=== PATIENT | male | born 1965 | race Caucasian/White ===

== ENCOUNTER 2017-12-12 16:05 | Observation (INO) | payer BC, SELFPAY ==
[2017-12-12] VITALS (10 sets, daily range): BP systolic 164–199; BP diastolic 12–129; PULSE 72–112; RESP 14–25; TEMP 36.1–37.3; O2SAT 95–99; BMI 28.7; BMI 27.3
--- NOTE | 2017-12-12 16:12 | RAD_ITS ---
STUDY: X-RAY CHEST REASON FOR EXAM: Male, 52 years old. Chest pain TECHNIQUE: Single frontal view of the chest. COMPARISON: None. FINDINGS: The lungs are clear and expanded. There is no demonstrated pleural abnormality. Normal size heart. Normal mediastinum and annita. Normal visualized pulmonary arteries. Normal visualized aortic arch and descending thoracic aorta. Normal visualized thoracic spine. Normal visualized ribs, clavicles, and shoulders. There is no demonstrated abnormality of the visualized soft tissue structures of the upper abdomen. RAD/Chest 1 View (Portable) IMPRESSION: Normal x-ray examination of the chest. Electronically Signed: Sean Howell MD at 16:26 EST , Service support ,
--- NOTE | 2017-12-12 16:12 | EKG12_ITS ---
Test Reason : CP Blood Pressure : / mmHG Vent. Rate : 114 BPM Atrial Rate : 114 BPM P-R Int : 178 ms QRS Dur : 092 ms QT Int : 330 ms P-R-T Axes : 026 -12 000 degrees QTc Int : 454 ms Sinus tachycardia Otherwise normal ECG Confirmed by MICKEY RASMUSSEN ([id number]), copy editor MEKA LUNDBERG ([id number] on 12/15/2017 11:42:39 AM Referred By: Confirmed By:MICKEY RASMUSSEN
[2017-12-12] MEDS: Aspirin 81 MG TAB.CHEW 324 MG PO (16:17)
--- NOTE | 2017-12-12 16:17 | ED.VISSUMM ---
- ER Visit Summary Date of Service: 12/12/17 Chief Complaint: Chest pain History of Present Illness: The patient is a 52 M with a 2 and half day history of chest pain. He points to left upper and lower chest. He describes it as an aching sensation. Pain has been waxing and waning but never resolved. He does not have significant shortness of breath, nausea, or vomiting. Patient was seen at urgent care 3 days ago and diagnosed with strep throat. He is currently on antibiotics. He was told at that time his blood pressure was through the roof. Patient does have a family history of cardiac disease but himself has never had a stress test or a heart cath. He denies any DVT or PE risk factors. Physical Examination: Blood pressure is 199/129, temperature 99.1, heart rate 112, respiratory rate 24, pulse ox 97% on room air. Patient sitting upright in bed no acute distress. Head and neck examination is normal. Heart is slightly tachycardic and regular. Lung sounds are clear with good air movement. Chest wall is nontender palpation. Abdomen is soft nontender. Lower external examination was no calf tenderness or edema. Strong distal pulses are noted. Test Results: EKG is sinus tach at [address] change. Portable chest x-ray is unremarkable. CBC and chemistry studies are unremarkable. Troponin is less than 0.02. D-dimer 0.86. Repeat EKG is sinus [address] change. 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 There is mild aneurysmal ascending aorta dilatation of 4.1 x 3.7 cm. There is no evidence of leak. There is no evidence of PE. Emergency Department Course and Treatment: Patient was given aspirin, morphine, and Zofran. On repeat evaluation heart rate is improved into the 80s but blood pressure remains elevated at 180/107. Patient be given a dose of IV hydralazine. I recommended hospitalization for treatment of his blood pressure and chest pain. Treatment Plan: [] Disposition: Admit Impression: 1. Chest pain 2. Hypertensive emergency This note was generated with [employer] dictation software. It may contain incorrect words, spelling, and punctuation that were not noted in review of the chart prior to signing ED Disposition - Plan for ED Patient: Chief Complaint: Chest Pain Referrals: [facility] [address] Doctor,Out of [NON-STAFF] -
[2017-12-12] MEDS: 0.9% Normal Saline 1,000 ML 150 ML IV (16:18)
[2017-12-12] MEDS: Ondansetron 4 MG/2 ML Vial IV (16:22)
[2017-12-12 16:39] LABS: Absolute Lymphocyte Count 2.99 X10^3/ul (0.83-4.51); Absolute Neutrophil Count 6.2 X10^3/uL (2.0-7.7); Basophil# 0.02 X10^3/uL; Basophil% 0.2 % (0-1); Eosinophil# 0.21 X10^3/uL; Hematocrit 43.6 % (40-54); Hemoglobin 14.9 g/dl (13.0-16.5); Lymphocyte # 2.99 X10^3/ul (4.0); Lymphocyte % 28.6 % (19-41); Mean Corp Hgb Conc 34.2 g/gl (32-36); Mean Corpuscular Hgb 28.7 pg (27.0-32.0); Mean Corpuscular Volume 83.8 fL (80-94); Monocyte# 0.96 X10^3/uL; Monocyte% 9.2 % (0-10); Neutrophil # 6.23 X10^3/uL (2.7-7.7); Neutrophil % 59.7 % (47-70); Platelet Count 353 K/mm3 (150-450); RBC Distribution Width SD 39.4 fl (35.1-43.9); White Blood Count 10.4 K/mm3 (4.4-11.0)
--- NOTE | 2017-12-12 16:43 | EKG12_ITS ---
Test Reason : CP Blood Pressure : / mmHG Vent. Rate : 088 BPM Atrial Rate : 088 BPM P-R Int : 162 ms QRS Dur : 092 ms QT Int : 362 ms P-R-T Axes : 017 -13 001 degrees QTc Int : 438 ms Normal sinus rhythm Normal ECG Confirmed by MICKEY RASMUSSEN ([id number]), medical editor MEKA LUNDBERG ([id number]) on 12/15/2017 11:42:55 AM Referred By: NAKIA Confirmed By:MICKEY RASMUSSEN
[2017-12-12 16:51] LABS: POSITIVE COUNT NO; POSITIVE DIFFERENTIAL NO; POSITIVE MORPHOLOGY NO
[2017-12-12 17:01] LABS: Anion Gap 9 (5-15); BUN 20 mg/dL (7-18); BUN/Creat Ratio 16.9 RATIO (10-20); Calcium,Total 8.5 mg/dL (8.5-10.1); Chloride 106 mmol/L (98-107); Creatinine, Serum 1.18 mg/dL (0.70-1.30); EST Glomerular Filtration Rate 69 mL/min (>60); Est Glom Filt Rate - Afr Amer 84 mL/min (>60); Estimated Creatinine Clearance 77.33 ml/min; Glucose 82 mg/dL (70-110); Potassium 3.6 mmol/L (3.5-5.1); Sodium Level 141 mmol/L (136-145)
[2017-12-12 17:19] LABS: D-Dimer Quantitative (DVT/PE) 0.86 FEU/ug/m (0.27-0.49)
--- NOTE | 2017-12-12 17:30 | CT_ITS ---
STUDY: CTA CHEST REASON FOR EXAM: Male, 52 years old. Chest pain for 3 days RADIATION DOSAGE (If Supplied By Facility): CTDIvol = ( 13.96 ) mGy, DLP = ( 570.06 ) mGycm TECHNIQUE: The examination was performed with the intravenous administration of 100mL ml of Isovue 370 contrast material. Post-processing of the angiographic images was performed, with multiplanar reformation and 3D reconstruction. Individualized dose optimization techniques were used for this CT. COMPARISON: None. FINDINGS: Normal enhancement of the main pulmonary artery and right and left pulmonary arteries. Normal enhancement of the bilateral peripheral pulmonary arteries. There is no demonstrated pulmonary embolism. The aorta is tortuous and there is mild aneurysmal dilatation of the ascending aorta measuring approximately 4.1 x 3.7 cm.. There is no demonstrated aortic dissection. Heart size is normal. There is mild coronary artery calcification Normal mediastinum. Normal hilar regions. Normal visualized trachea and bronchi. The lungs are well expanded. There is mild generalized interstitial thickening with groundglass opacity consistent with nonspecific alveolitis. Normal pleura. Normal chest wall structures. Normal osseous structures. Normal visualized upper abdomen. CT/CTA Chest W/WO Contrast IMPRESSION: Mild nonspecific interstitial thickening and groundglass opacity consistent with alveolitis.. No evidence for pulmonary embolus Incidental findings include mild aneurysmal dilatation of the proximal ascending aorta without evidence for periaortic leak or dissection. There is also calcification of the coronary arteries Electronically Signed: Enrico Harris MD at 18:20 EST , Service support ,
--- NOTE | 2017-12-12 17:46 | ED.RN ---
0.86 ddimer called from the lab. dr jose borges
--- NOTE | 2017-12-12 19:23 | PCM.HP.STD ---
Problem List (1) Chest pain Status: Acute (2) Hypertension Status: Chronic Qualifiers: Hypertension type: essential hypertension Qualified Code(s): I10 - Essential (primary) hypertension (3) Thoracic aortic aneurysm Status: Chronic Qualifiers: Presence of rupture: without rupture Qualified Code(s): I71.2 - Thoracic aortic aneurysm, without rupture History of Present Illness Date of Admission: 12/12/17 Chief Complaint: Chest pain The patient is a 52 year old M with known history of hypertension presents with 2-3 day history of chest pain. Chest pain began is sporadic and occurs while he can be at rest. Not aggravated by exertion. It is midsternal mostly to the left but occasional up his jaw and patient having some unusual sensations that is not numbness on the back of his left arm. Was concerned and came to the emergency room. In the emergency room, patient was very hypertensive, with a blood pressure of 189/129. Patient had a d-dimer that was elevated and did undergo a CT injury of the chest. CT angiogram of the chest did not show any pulmonary embolism but did show some groundglass opacities but also did show a thoracic aortic aneurysm of 4.1 cm. In the emergency room, patient received 10 mg of IV hydralazine, 324 mg of aspirin and morphine. Patient is chest pain-free at this time. He has never had chest pain like this before. [] Past Medical History Past Medical History (Chronic Problems): Chronic Problems Hypertension (Chronic) Thoracic aortic aneurysm (Chronic) Allergies No Known Allergies Allergy (Verified 12/12/17 16:11) Home Medications: Ambulatory Orders Medication Instructions Recorded Amoxicillin [Amoxil] 500 mg PO Q8H 12/12/17 Surgical History: - - History of back surgery for some bulging disks Psychiatric History: No pertinent psych hx Smoking Status: Former smoker Tobacco Use: Non-smoker Alcohol: Occasional Drugs: None - *Family History Paternal History Items: Heart Disease Sibling History Items: Heart Disease Review of Systems Constitutional: Denies: Chills, Fever, Weight Change Eyes: Denies: Blurred vision, Double vision HEENT: Denies: Head Aches, Sinus Congestion, Sinus Drainage Cardiovascular: Reports: Chest Pain, Palpitations. Denies: Edema Respiratory: Denies: Cough, Shortness of breath at rest, Sputum production Gastrointestinal: Denies: Abdominal Pain, Nausea, Vomiting Genitourinary: Denies: Dysuria Musculoskeletal: Denies: Joint Pain, Joint Tenderness Skin: Denies: Rash, Wounds Neurological: Denies: Numbness, Tingling, Focal weakness Psychiatric: Denies: Anxiety, Depression, Homicidal Ideations, Suicidal Ideations Hematologic/ Lymphatic: Denies: Easy Bruising, Easy Bleeding, Hx of blood clot VTE Information - Inpt Only VTE Present on Admission: No VTE Pharm Prophylaxis ordered?: Yes Patient Problems: Active and Suspected Problems Chest pain (Acute) - Physical Exam General: Alert, Cooperative, No apparent distress, Well developed, Well nourished HEENT: Atraumatic, Normocephalic Neck: No Nodes, Thyroid Normal Size and Texture Lungs: Clear to auscultation, Normal air movement, No rhonchi, No wheeze Cardiovascular: Regular rate, Regular Rhythm, Normal S1, Normal S2, No murmurs Abdomen: Bowel Sounds Present, Soft, Non Tender, Non-Distended, No Hepato-splenomegaly Extremities: No clubbing, No cyanosis, No edema, No Calf Tenderness Skin: No rashes, No breakdown Musculoskeletal: No Tenderness to Palpation of Joints or Extremities, No Muscle Wasting Neurological: Neuro grossly intact, Sensory exam intact to light touch and pain Psych/Mental Status: Normal Affect, Appropriate Vital Signs Temp Pulse Resp BP Pulse Ox 37.3 C 90 25 H 189/127 H 99 12/12/17 16:06 12/12/17 19:01 12/12/17 19:01 12/12/17 19:01 12/12/17 19:01 Oxygen Delivery Method Room Air Weight: 90.7 kg Body Mass Index (BMI) 28.7 Laboratory Tests Past 24 Hrs 12/12/17 12/12/17 12/12/17 16:25 16:25 16:25 WBC 10.4 RBC 5.20 Hgb 14.9 Hct 43.6 MCV 83.8 MCH 28.7 MCHC 34.2 RDW 13.0 RDW Differential 39.4 Plt Count 353 MPV 10.0 Immature Gran % (Auto) 0.300 Neut % (Auto) 59.7 Lymph % (Auto) 28.6 Ocean % (Auto) 9.2 Eos % (Auto) 2.0 Baso % (Auto) 0.2 Absolute Neuts (auto) 6.2 Absolute Lymphs (auto) 2.99 Total Counted Not Reportable D-Dimer Quant (PE/DVT) 0.86 H* Sodium 141 Potassium 3.6 Chloride 106 Carbon Dioxide 26.0 Anion Gap 9 BUN 20 H Creatinine 1.18 Estim Creat Clear Calc 77.33 Est GFR (MDRD) Af Amer 84 Est GFR (MDRD) Non-Af 69 BUN/Creatinine Ratio 16.9 Glucose 82 Calcium 8.5 Troponin I < 0.02 Clinical Impression(s) from Imaging Studies Chest X-Ray 12/12/17 16:12 IMPRESSION: Normal x-ray examination of the chest. Electronically Signed: Sean Howell MD at 16:26 EST , Service support , Chest CTA 12/12/17 17:30 IMPRESSION: Mild nonspecific interstitial thickening and groundglass opacity consistent with alveolitis.. No evidence for pulmonary embolus Incidental findings include mild aneurysmal dilatation of the proximal ascending aorta without evidence for periaortic leak or dissection. There is also calcification of the coronary arteries Electronically Signed: Enrico Harris MD at 18:20 EST , Service support , EKG personally reviewed and showed normal sinus rhythm without any acute changes. Assessment/Plan Active and Suspected Problems Chest pain (Acute) 1. Chest pain Atypical. Patient has risk factors given hypertension as well as family history. Patient will be continued on aspirin, will check a fasting lipid panel in the morning, check a treadmill stress echocardiogram on the morning. Based on the results, patient to be discharged home or cardiology be consulted. 2. Hypertension Patient states that he is treating it with garlic tabs at home. Patient said his blood pressure is around 150s. Patient has no known drug allergies so patient was started on 10 mg of lisinopril. Patient will have as needed hydralazine for systolic blood pressure greater than 180 while he was here. 3. Thoracic aortic aneurysm, ascending Incidental finding on the CT angiogram of the chest. 4.1 cm. No surgical intervention necessary at this time. This however will still need to be monitored. Patient need to have a repeat CT of his chest in 6 months. 4. DVT prophylaxis with low molecular weight heparin. Patient instructed that he will need follow-up with primary care doctor after discharge. This note was generated with [employer] dictation software. It may contain incorrect words, spelling, and punctuation that were not noted in checking the note before signing. Code Visit OBSV E&M: 79700 Initial observation care L3
--- NOTE | 2017-12-12 19:31 | HP.PCM_ITS ---
Problem List (1) Chest pain Status: Acute (2) Hypertension Status: Chronic Qualifiers: Hypertension type: essential hypertension Qualified Code(s): I10 - Essential (primary) hypertension (3) Thoracic aortic aneurysm Status: Chronic Qualifiers: Presence of rupture: without rupture Qualified Code(s): I71.2 - Thoracic aortic aneurysm, without rupture History of Present Illness Date of Admission: 12/12/17 Chief Complaint: Chest pain The patient is a 52 year old M with known history of hypertension presents with 2-3 day history of chest pain. Chest pain began is sporadic and occurs while he can be at rest. Not aggravated by exertion. It is midsternal mostly to the left but occasional up his jaw and patient having some unusual sensations that is not numbness on the back of his left arm. Was concerned and came to the emergency room. In the emergency room, patient was very hypertensive, with a blood pressure of 189/129. Patient had a d-dimer that was elevated and did undergo a CT injury of the chest. CT angiogram of the chest did not show any pulmonary embolism but did show some groundglass opacities but also did show a thoracic aortic aneurysm of 4.1 cm. In the emergency room, patient received 10 mg of IV hydralazine, 324 mg of aspirin and morphine. Patient is chest pain- free at this time. He has never had chest pain like this before. [] Past Medical History Past Medical History (Chronic Problems): Chronic Problems Hypertension (Chronic) Thoracic aortic aneurysm (Chronic) Allergies No Known Allergies Allergy (Verified 12/12/17 16:11) Home Medications: Ambulatory Orders Medication Instructions Recorded Amoxicillin [Amoxil] 500 mg PO Q8H 12/12/17 Surgical History: - - History of back surgery for some bulging disks Psychiatric History: No pertinent psych hx Smoking Status: Former smoker Tobacco Use: Non-smoker Alcohol: Occasional Drugs: None - *Family History Paternal History Items: Heart Disease Sibling History Items: Heart Disease Review of Systems Constitutional: Denies: Chills, Fever, Weight Change Eyes: Denies: Blurred vision, Double vision HEENT: Denies: Head Aches, Sinus Congestion, Sinus Drainage Cardiovascular: Reports: Chest Pain, Palpitations. Denies: Edema Respiratory: Denies: Cough, Shortness of breath at rest, Sputum production Gastrointestinal: Denies: Abdominal Pain, Nausea, Vomiting Genitourinary: Denies: Dysuria Musculoskeletal: Denies: Joint Pain, Joint Tenderness Skin: Denies: Rash, Wounds Neurological: Denies: Numbness, Tingling, Focal weakness Psychiatric: Denies: Anxiety, Depression, Homicidal Ideations, Suicidal Ideations Hematologic/ Lymphatic: Denies: Easy Bruising, Easy Bleeding, Hx of blood clot VTE Information - Inpt Only VTE Present on Admission: No VTE Pharm Prophylaxis ordered?: Yes Patient Problems: Active and Suspected Problems Chest pain (Acute) - Physical Exam General: Alert, Cooperative, No apparent distress, Well developed, Well nourished HEENT: Atraumatic, Normocephalic Neck: No Nodes, Thyroid Normal Size and Texture Lungs: Clear to auscultation, Normal air movement, No rhonchi, No wheeze Cardiovascular: Regular rate, Regular Rhythm, Normal S1, Normal S2, No murmurs Abdomen: Bowel Sounds Present, Soft, Non Tender, Non-Distended, No Hepato- splenomegaly Extremities: No clubbing, No cyanosis, No edema, No Calf Tenderness Skin: No rashes, No breakdown Musculoskeletal: No Tenderness to Palpation of Joints or Extremities, No Muscle Wasting Neurological: Neuro grossly intact, Sensory exam intact to light touch and pain Psych/Mental Status: Normal Affect, Appropriate Vital Signs Temp Pulse Resp BP Pulse Ox 37.3 C 90 25 H 189/127 H 99 12/12/17 16:06 12/12/17 19:01 12/12/17 19:01 12/12/17 19:01 12/12/17 19:01 Oxygen Delivery Method Room Air Weight: 90.7 kg Body Mass Index (BMI) 28.7 Laboratory Tests Past 24 Hrs 12/12/17 12/12/17 12/12/17 16:25 16:25 16:25 WBC 10.4 RBC 5.20 Hgb 14.9 Hct 43.6 MCV 83.8 MCH 28.7 MCHC 34.2 RDW 13.0 RDW Differential 39.4 Plt Count 353 MPV 10.0 Immature Gran % (Auto) 0.300 Neut % (Auto) 59.7 Lymph % (Auto) 28.6 [place]linger % (Auto) 9.2 Eos % (Auto) 2.0 Baso % (Auto) 0.2 Absolute Neuts (auto) 6.2 Absolute Lymphs (auto) 2.99 Total Counted Not Reportable D-Dimer Quant (PE/DVT) 0.86 H* Sodium 141 Potassium 3.6 Chloride 106 Carbon Dioxide 26.0 Anion Gap 9 BUN 20 H Creatinine 1.18 Estim Creat Clear Calc 77.33 Est GFR (MDRD) Af Amer 84 Est GFR (MDRD) Non-Af 69 BUN/Creatinine Ratio 16.9 Glucose 82 Calcium 8.5 Troponin I < 0.02 Clinical Impression(s) from Imaging Studies Chest X-Ray 12/12/17 16:12 IMPRESSION: Normal x-ray examination of the chest. Electronically Signed: Sean Howell MD at 16:26 EST , Service support , Chest CTA 12/12/17 17:30 IMPRESSION: Mild nonspecific interstitial thickening and groundglass opacity consistent with alveolitis.. No evidence for pulmonary embolus Incidental findings include mild aneurysmal dilatation of the proximal ascending aorta without evidence for periaortic leak or dissection. There is also calcification of the coronary arteries Electronically Signed: Enrico Harris MD at 18:20 EST , Service support , EKG personally reviewed and showed normal sinus rhythm without any acute changes. Assessment/Plan Active and Suspected Problems Chest pain (Acute) 1. Chest pain Atypical. Patient has risk factors given hypertension as well as family history. Patient will be continued on aspirin, will check a fasting lipid panel in the morning, check a treadmill stress echocardiogram on the morning. Based on the results, patient to be discharged home or cardiology be consulted. 2. Hypertension Patient states that he is treating it with garlic tabs at home. Patient said his blood pressure is around 150s. Patient has no known drug allergies so patient was started on 10 mg of lisinopril. Patient will have as needed hydralazine for systolic blood pressure greater than 180 while he was here. 3. Thoracic aortic aneurysm, ascending Incidental finding on the CT angiogram of the chest. 4.1 cm. No surgical intervention necessary at this time. This however will still need to be monitored. Patient need to have a repeat CT of his chest in 6 months. 4. DVT prophylaxis with low molecular weight heparin. Patient instructed that he will need follow-up with primary care doctor after discharge. This note was generated with [employer] dictation software. It may contain incorrect words, spelling, and punctuation that were not noted in checking the note before signing. Code Visit OBSV E&M: 28720 Initial observation care L3
[2017-12-12] MEDS: AMOXICILLIN 500 MG CAPSULE PO (21:00)
[2017-12-12] MEDS: Lisinopril 10 MG Tablet PO (21:00)
[2017-12-13 00:14] VITALS: BP 156/94; PULSE 85; RESP 18; TEMP 36.6; O2SAT 95
[2017-12-13] MEDS: oxyCODONE 5 MG Tablet PO (00:20)
[2017-12-13 02:27] LABS: Absolute Lymphocyte Count 2.45 X10^3/ul (0.83-4.51); Absolute Neutrophil Count 5.4 X10^3/uL (2.0-7.7); Basophil# 0.03 X10^3/uL; Basophil% 0.3 % (0-1); Eosinophil# 0.21 X10^3/uL; Eosinophils% 2.3 % (0-5); Hematocrit 42.4 % (40-54); Hemoglobin 14.5 g/dl (13.0-16.5); Lymphocyte # 2.45 X10^3/ul (4.0); Lymphocyte % 26.3 % (19-41); Mean Corp Hgb Conc 34.2 g/gl (32-36); Mean Corpuscular Hgb 28.9 pg (27.0-32.0); Mean Corpuscular Volume 84.6 fL (80-94); Mean Platelet Vol. 9.7 fl (6.2-12.0); Monocyte# 1.23 X10^3/uL; Monocyte% 13.2 % (0-10); Neutrophil # 5.37 X10^3/uL (2.7-7.7); Neutrophil % 57.8 % (47-70); POSITIVE COUNT NO; POSITIVE DIFFERENTIAL NO; POSITIVE MORPHOLOGY NO; Platelet Count 333 K/mm3 (150-450); RBC Distribution Width CV 13.4 % (11.6-14.6); RBC Distribution Width SD 40.7 fl (35.1-43.9); Red Blood Count 5.01 M/mm3 (4.6-6.2); White Blood Count 9.3 K/mm3 (4.4-11.0)
[2017-12-13 02:34] LABS: Prothrombin Time (Protime)PT. 12.8 SECONDS (11.7-14.9)
[2017-12-13 02:35] LABS: Partial Thromboplast Time 28.6 Seconds (24.1-36.2)
[2017-12-13 03:00] VITALS: PULSE 62
[2017-12-13 03:10] LABS: Anion Gap 9 (5-15); BUN 18 mg/dL (7-18); BUN/Creat Ratio 16.4 RATIO (10-20); Calcium,Total 8.3 mg/dL (8.5-10.1); Chloride 109 mmol/L (98-107); Cholesterol 151 mg/dL (200); EST Glomerular Filtration Rate 75 mL/min (>60); Est Glom Filt Rate - Afr Amer 91 mL/min (>60); Estimated Creatinine Clearance 82.95 ml/min; Glucose 115 mg/dL (70-110); High Density Lipoprotein 31 mg/dL; Potassium 3.7 mmol/L (3.5-5.1); Sodium Level 142 mmol/L (136-145); Triglycerides 152 mg/dL; Very Low Density Lipoprotein 30 mg/dL (5-40)
--- NOTE | 2017-12-13 04:00 | EKG12_ITS ---
Test Reason : AM EKG Blood Pressure : / mmHG Vent. Rate : 063 BPM Atrial Rate : 063 BPM P-R Int : 184 ms QRS Dur : 090 ms QT Int : 430 ms P-R-T Axes : 018 -10 002 degrees QTc Int : 440 ms Normal sinus rhythm Nonspecific T wave abnormality Confirmed by AUGUSTA LEE, TAMMIE ([id number]), assistant film editor MEKA LUNDBERG ([id number]) on 12/21/2017 11:45:53 AM Referred By: EDY Confirmed By:TAMMIE DERAS MD
[2017-12-13 04:11] VITALS: BP 154/99; PULSE 70; RESP 18; TEMP 36.5; O2SAT 97
[2017-12-13] MEDS: Acetaminophen 325 MG Tablet 650 MG PO (04:15)
[2017-12-13] MEDS: AMOXICILLIN 500 MG CAPSULE PO (06:01)
--- NOTE | 2017-12-13 06:55 | STEWCON_ITS ---
Reason For Study: Chest Pain Stress Results Protocol: Leif Protocol Maximum Predicted HR: 170 bpm Target HR: 145 bpm% Max imum Predicted HR: 88 % DurationHeart Rate Stage (mm:ss) (bpm) BPComm ent Baseline 86 152/10 4Definity 3 ML Diluated With NS Leif Protocol Stage I 3:00 11 2 156/100 Leif Protocol Stage II 3:00 12 3 164/100 Leif Protocol Stage III 3:00 15 0 174/102 Recovery 104 152/1 02 Stress Duration: 9:00 mm:ss Maximum Stress HR: 150 bpmM ETS: 10 Baseline Echocardiogram Findings Stress Echo Wall motion Data Resting WMIntermediate WMStress WM Resting Wall Motion Wall Motion Stress All segments Normal. All segments Hyperkinetic. Ejection Fraction 55 %. Ejection Fraction 70 %. Stress Results Heart rate response: appropriate Blood pressure response: resting hypertension - appropriate response Arrhythmias: none Functional capacity: good Stopped secondary to: leg discomfort. EKG Data Baseline ECG: Normal Sinus Rhythm. Peak exercise ECG: No Obvious ECG Changes. Symptoms with Stress No c/o chest discomfort during exercise / recovery. Interpretation Summary Negative (Adequate) Stress Echocardiogram. Ordering Physician: Ck Parsons M.D. Referring Physician: Ck Parsons MD Performed By: Doris Long, JAY, RVT
[2017-12-13 07:07] VITALS: PULSE 61
[2017-12-13 07:50] VITALS: O2SAT 96
--- NOTE | 2017-12-13 09:28 | CASEMGMT ---
This RN CM received referral for pt regarding no PCP. This RN CM to bedside to bedside and pt given copy of local PCP list. Pt states that he did fill out paperwork for [facility] and just needs to turn it in and then will schedule appointment. Pt states no need for any further resources at this time. SStmaninder MILES CM
--- NOTE | 2017-12-13 09:37 | PCM.DC ---
- Discharge Diagnoses Current Active Problems: Current Active and Chronic Problems Chest pain (Acute) Hypertension (Chronic) Thoracic aortic aneurysm (Chronic) You will use the following diet at home:: Cardiac Discharge Activity: Return to Normal Activity Allergies/Adverse Reactions: Allergies No Known Allergies Allergy (Verified 12/12/17 16:11) Medications to take at Discharge Amoxicillin [Amoxil] 500 mg PO Q8H 12/12/17 Lisinopril [Zestril] 10 mg PO DAILY #30 tab 12/13/17 The following prescriptions were given: Lisinopril [Zestril] 10 mg PO DAILY #30 tab Primary Care Physician: [facility],Out of [NON-STAFF] - Please follow up with your Primary Care Physician in: in 1-2 weeks
--- NOTE | 2017-12-13 09:38 | PCM.DC.SUM ---
Discharge Date and Diagnosis Date of Admission: 12/12/17 Date of Discharge: 12/13/17 - Primary Discharge Diagnosis Active and Suspected Problems Chest pain (Acute) 1. Atypical chest pain most probably musculoskeletal. 2. Hypertension 3. Thoracic aortic aneurysm, ascending - Secondary Discharge Diagnosis Chronic Problems Hypertension (Chronic) Thoracic aortic aneurysm (Chronic) Hospital Course and Treatment Imaging Results: 12/13/17 06:55 Stress Test Echo W/Contrast [ECHO] Stat Summary of Care Provided: The patient is a 52 year old M with known history of hypertension presents with 2-3 day history of chest pain. Chest pain was atypical, sporadic and occurs even at rest, not aggravated by exertion. It is midsternal mostly to the left but occasional up his jaw and patient having some unusual sensations that is not numbness on the back of his left arm. Was concerned and came to the emergency room. In the emergency room, patient was very hypertensive, with a blood pressure of 189/129. Patient had a d-dimer that was elevated and did undergo a CT injury of the chest. CT angiogram of the chest did not show any pulmonary embolism but did show some groundglass opacities but also did show a thoracic aortic aneurysm of 4.1 cm. In the emergency room, patient received 10 mg of IV hydralazine, 324 mg of aspirin and morphine. Patient is chest pain-free at this time. He has never had chest pain like this before. [] 1. Atypical chest pain most probably musculoskeletal. Patient has risk factors given hypertension as well as family history. Patient was admitted on monitored bed. Treadmill stress echo was ordered. Treadmill stress echo reported as appropriate response of heart rate and blood pressure. Good functional capacity with no arrhythmia. No obvious ECG. There is negative stress test. Patient was discharged home. Lipid profile shows total cholesterol 151 and LDL 90. 2. Hypertension Patient states that he is treating it with garlic tabs at home. Patient said his blood pressure is around 150s. Patient has no known drug allergies so patient was started on 10 mg of lisinopril. Patient was treated with needed hydralazine for systolic blood pressure greater than 180 mmHg during hospital stay Charge on lisinopril 10 mg. 3. Thoracic aortic aneurysm, ascending Incidental finding on the CT angiogram of the chest. 4.1 cm. No surgical intervention necessary at this time. This however will still need to be monitored. Patient need to have a repeat CT of his chest in 6 months. Advised to follow with PCP. 4. DVT prophylaxis with low molecular weight heparin. Discharge medication reconciliation done. Follow-up instructions given. This note was generated with [employer] dictation software. Every effort was made to ensure accuracy, however computerized quality assurance associate mistakes may persist. Discharge Activity: Return to Normal Activity Home Medications: Medications to take at Discharge Amoxicillin [Amoxil] 500 mg PO Q8H 12/12/17 Lisinopril [Zestril] 10 mg PO DAILY #30 tab 12/13/17 Metoprolol(XL)Succ [Toprol Xl (Beta Yaya)] 25 mg PO DAILY #30 tab 12/13/17 Following Prescrptions Were Given to Patient: Lisinopril [Zestril] 10 mg PO DAILY #30 tab Metoprolol(XL)Succ [Toprol Xl (Beta Yaya)] 25 mg PO DAILY #30 tab Primary Care Physician: [facility] Doctor,Out of [NON-STAFF] - Please follow up with your Primary Care Physician in: in 1-2 weeks Meaningful Use Info Meaningful Use Diagnoses (Choose all that apply): None applicable Code Visit OBSV E&M: 69005 Observation care discharge
[2017-12-13 09:51] VITALS: BP 133/99; PULSE 86; RESP 16; TEMP 37; O2SAT 94
[2017-12-13] MEDS: Lisinopril 10 MG Tablet PO (09:54)
[2017-12-13] MEDS: Aspirin E.C. 81 MG Tablet PO (09:54)
== END 2017-12-13 09:37 | disposition home or self-care (01) ==
LOC: ED 16:32 → PCU 19:33
PROVIDERS: Emergency Provider Emergency Medicine; Family Provider Family Medicine; PCP Family Medicine; Visit Provider Internal Medicine
DX: R07.89 Other chest pain (principal); I10 Essential (primary) hypertension; I71.2 Thoracic aortic aneurysm, without rupture; I16.1 Hypertensive emergency; Z87.891 Personal history of nicotine dependence; J02.0 Streptococcal pharyngitis
CPT/HCPCS: 36415; 71045; 71275; 80048; 80061; 84484; 85025; 85379; 85610; 85730; 93005; 93017; 93350; 96374; 96375; 99218; 99285; J7050; Q9957; Q9967; A4216; C8928; G0378; J2405

== ENCOUNTER → 2017-12-30 15:01 | Outpatient (CLI) | payer BC, SELFPAY ==
[2017-12-30 15:04] LABS: Bacteria 0 SEEN /hpf (None Seen); Mucous, Urine 0 SEEN /hpf (<or=2+); Squamous Epithelial Cells - UA 0 SEEN /hpf (0-5); White Blood Cells 0 SEEN /hpf (0-5)
[2017-12-30 15:57] LABS: Color, Urine Yellow (Yellow); Glucose, Dipstick Normal (Normal); Ketone-Dipstick Negative (Negative); Leukocyte Esterase-Dipstick Negative /ul (Negative); Nitrite-Dipstick Negative (Negative); Occult Blood-Urine Negative /ul (Negative); Protein-Dipstick Negative (Negative); Urine Bilirubin Dipstick Negative (Negative); Urine Clarity Clear (Clear); Urine Urobilinogen Normal (Normal)
[2017-12-30 16:08] LABS: Hemoglobin A1c 5.6 % (4.2-6.3)
[2017-12-30 16:16] LABS: Magnesium 2.4 mg/dL (1.6-2.6); PSA,Total - Annual Screen 4.64 ng/mL (0.00-4.00); Thyroid Stim Hormone (TSH) 1.15 uIU/mL (0.358-3.74)
[2017-12-30 16:46] LABS: Red Blood Cells-Urine 0-5 SEEN /hpf (0-5)
== END ==
PROVIDERS: Family Provider Family Medicine; PCP Family Medicine; Visit Provider Family Medicine
DX: I10 Essential (primary) hypertension (principal); R73.09 Other abnormal glucose; Z12.5 Encounter for screening for malignant neoplasm of prostate; Z80.42 Family history of malignant neoplasm of prostate
CPT/HCPCS: 81001; 83036; 83735; 84153; 84443; G0103

== ENCOUNTER → 2018-01-12 16:34 | Outpatient (CLI) | payer BC, SELFPAY ==
[2018-01-12 17:56] LABS: PSA,Total- Diagnostic 5.16 ng/mL (0.0-4.0)
== END ==
PROVIDERS: Family Provider Family Medicine; PCP Family Medicine; Visit Provider Nurse Practitioner Adult Health
DX: R97.20 Elevated prostate specific antigen [PSA] (principal)
CPT/HCPCS: 36415; 84153

== ENCOUNTER → 2018-01-27 16:44 | Outpatient (CLI) | payer BC, SELFPAY ==
--- NOTE | 2018-01-27 09:20 | PROSBIL_PTH ---
PATIENT: DOMINGO EMANUEL LOC: [facility] U#:[id number] AGE/SX: 60/M ROOM: RE01/27/[address]: Dr. Esteban Demarco MD : [id number] BED: DIS: SPEC #: [id number] RECD: 01/27/18 15:50 STATUS: MIRANDA KRISTIE #: [id number] RADHA: 01/27/18 09:[address]: Esteban Demarco DEPT: SURGICAL PATHOLOGY RECD BY: Philip Nguyen ENTERED: 01/30/18 08:03 SP TYPE: PROST BX MEI DR: Dr. Ck Hsu MD [facility] Tissues: A - PROSTATE RIGHT B - PROSTATE RIGHT C - PROSTATE RIGHT D - PROSTATE LEFT E - PROSTATE LEFT F - PROSTATE LEFT Procedures: PROSTATE BX HEADER OPERATION: Transrectal ultrasound-guided needle biopsy prostate PRE-OP DIAGNOSIS: Elevated PSA, family history of prostate cancer TISSUE SUBMITTED: A - Right base, B - Right mid, C - Right apex, D - Left base, E - Left mid, F - Left apex MICROSCOPIC DIAGNOSIS A. Right prostate, base, core biopsy: Prostatic tissue, negative for malignancy. B. Right prostate, mid, core biopsy: Prostatic tissue, negative for malignancy. C. Right prostate, apex, core biopsy: Prostatic tissue, negative for malignancy. Focal mild chronic inflammation. D. Left prostate, base, core biopsy: Prostatic tissue, negative for malignancy. E. Left prostate, mid, core biopsy: Prostatic tissue, negative for malignancy. Focal chronic inflammation. F. Left prostate, apex, core biopsy: Prostatic tissue, negative for malignancy. SJ:abdullahi 01/31/18 MICROSCOPIC DESCRIPTION Slides are reviewed. GROSS DESCRIPTION A - Received is one container designated prostate, right base. The specimen consists of two elongated fragments of light mcnamara-white soft tissue measuring 1 and 1.5 cm in length and 0.1 cm in diameter. The specimen is totally submitted in one cassette. B - Received is one container designated prostate, right mid. The specimen consists of two elongated fragments of light mcnamara-white soft tissue measuring 1 and 1.5 cm in length and 0.1 cm in diameter. The specimen is totally submitted in one cassette. C - Received is one container designated prostate, right apex. The specimen consists of two elongated fragments of light mcnamara-white soft tissue each measuring 1.5 cm in length and 0.1 cm in diameter. The specimen is totally submitted in one cassette. D - Received is one container designated prostate, left base. The specimen consists of three elongated fragments of light mcnamara-white soft tissue measuring 0.5, 0.8 and 1 cm in length and 0.1 cm in diameter. The specimen is totally submitted in one cassette. E - Received is one container designated prostate, left mid. The specimen consists of two elongated fragments of light mcnamara-white soft tissue each measuring 1.5 cm in length and 0.1 cm in diameter. The specimen is totally submitted in one cassette. F - Received is one container designated prostate, left apex. The specimen consists of two elongated fragments of light mcnamara-white soft tissue measuring 1 and 1.5 cm in length and 0.1 cm in diameter. The specimen is totally submitted in one cassette. / SJ:rg 01/30/18 TC:3 CPT: 30033 x6
== END ==
PROVIDERS: Family Provider Family Medicine; PCP Family Medicine; Visit Provider Urology
DX: R97.20 Elevated prostate specific antigen [PSA] (principal); Z80.42 Family history of malignant neoplasm of prostate
CPT/HCPCS: 88305; G0416

== ENCOUNTER → 2018-05-08 15:55 | Outpatient (CLI) | payer BC, SELFPAY ==
--- NOTE | 2018-05-08 15:55 | DT_ITS ---
This patient was seen during an EMR downtime May 01, 2018 - May 08, 2018. This patient may have a combination of paper and electronic documentation or all paper documentation. All documentation is viewable within the e-chart portion of [employer] for each patient visit.
[2018-05-08 17:38] LABS: Absolute Lymphocyte Count 2.48 X10^3/ul (0.83-4.51); Absolute Neutrophil Count 5.2 X10^3/uL (2.0-7.7); Basophil# 0.03 X10^3/uL; Basophil% 0.3 % (0-1); Eosinophil# 0.14 X10^3/uL; Eosinophils% 1.6 % (0-5); Hematocrit 43.5 % (40-54); Hemoglobin 14.5 g/dl (13.0-16.5); Lymphocyte # 2.48 X10^3/ul (4.0); Lymphocyte % 28.4 % (19-41); Mean Corp Hgb Conc 33.3 g/gl (32-36); Mean Corpuscular Hgb 28.8 pg (27.0-32.0); Mean Corpuscular Volume 86.3 fL (80-94); Mean Platelet Vol. 10.6 fl (6.2-12.0); Monocyte% 10.3 % (0-10); Neutrophil # 5.17 X10^3/uL (2.7-7.7); Neutrophil % 59.3 % (47-70); Platelet Count 337 K/mm3 (150-450); RBC Distribution Width CV 13.5 % (11.6-14.6); RBC Distribution Width SD 42.6 fl (35.1-43.9); Red Blood Count 5.04 M/mm3 (4.6-6.2); White Blood Count 8.7 K/mm3 (4.4-11.0)
[2018-05-08 17:43] LABS: POSITIVE COUNT NO; POSITIVE DIFFERENTIAL NO; POSITIVE MORPHOLOGY NO
[2018-05-08 17:58] LABS: AST(SGOT) 20 U/L (15-37); Alanine Aminotransfer ALT/SGPT 42 U/L (16-61); Albumin, Serum 3.9 g/dL (3.2-5.0); Alkaline Phosphatase 95 U/L (45-117); Anion Gap 10 (5-15); BUN 23 mg/dL (7-18); Calcium,Total 8.8 mg/dL (8.5-10.1); Chloride 106 mmol/L (98-107); Creatinine, Serum 1.35 mg/dL (0.70-1.30); EST Glomerular Filtration Rate 59 mL/min (>60); Est Glom Filt Rate - Afr Amer 72 mL/min (>60); Glucose 123 mg/dL (74-106); Potassium 3.4 mmol/L (3.5-5.1); Protein, Total 7.9 g/dL (6.4-8.2); Sodium Level 141 mmol/L (136-145)
== END ==
PROVIDERS: Visit Provider Family Medicine
DX: I10 Essential (primary) hypertension (principal)
CPT/HCPCS: 36415; 80053; 85025

== ENCOUNTER → 2018-05-15 10:22 | Outpatient (CLI) | payer BC, SELFPAY ==
[2018-05-15 12:29] LABS: Hematocrit 42.8 % (40-54); Hemoglobin 14.9 g/dl (13.0-16.5); Mean Corp Hgb Conc 34.8 g/gl (32-36); Mean Corpuscular Hgb 29.6 pg (27.0-32.0); Mean Corpuscular Volume 84.9 fL (80-94); Mean Platelet Vol. 10.5 fl (6.2-12.0); Platelet Count 344 K/mm3 (150-450); RBC Distribution Width CV 13.6 % (11.6-14.6); RBC Distribution Width SD 41.6 fl (35.1-43.9); Red Blood Count 5.04 M/mm3 (4.6-6.2); White Blood Count 6.9 K/mm3 (4.4-11.0)
[2018-05-15 12:33] LABS: Scan Indicated on CBC? Y/N NO
[2018-05-16 17:50] LABS: Anion Gap 7 (5-15); BUN 19 mg/dL (7-18); BUN/Creat Ratio 15.4 RATIO (10-20); Calcium,Total 8.6 mg/dL (8.5-10.1); Chloride 103 mmol/L (98-107); Creatinine, Serum 1.23 mg/dL (0.70-1.30); EST Glomerular Filtration Rate 66 mL/min (>60); Est Glom Filt Rate - Afr Amer 80 mL/min (>60); Glucose 122 mg/dL (74-106); Potassium 3.5 mmol/L (3.5-5.1); Sodium Level 137 mmol/L (136-145)
[2018-05-16 18:08] LABS: Hemoglobin A1c 5.7 % (4.2-6.3)
== END ==
PROVIDERS: Family Provider Family Medicine; PCP Family Medicine; Visit Provider Family Medicine
DX: I71.2 Thoracic aortic aneurysm, without rupture (principal)
CPT/HCPCS: 36415; 80048; 83036; 85027

== ENCOUNTER → 2018-08-16 16:29 | Outpatient (CLI) | payer BC, SELFPAY ==
--- NOTE | 2018-08-16 16:45 | RAD_ITS ---
STUDY: X-RAY - LEFT FOOT CLINICAL: Male, 53 years old. Bilateral heel pain TECHNIQUE: 3 view(s) of the foot. COMPARISON: None. FINDINGS: Normal talus, calcaneus, and tarsal bones. Normal visualized subtalar, talonavicular, calcaneocuboid, tarsal and tarsometatarsal articulations. Normal metatarsi. There is minimal degenerative arthrosis of the metatarsophalangeal joint of the hallux . Normal tibial and fibular sesamoid bones. Normal interphalangeal joint of the great toe. Normal phalanges of the great toe. Normal second through fifth metatarsophalangeal joints. Normal interphalangeal joints and phalanges of the lesser toes. The soft tissue structures are unremarkable. RAD/Foot min 3 Views IMPRESSION: Minimal degenerative changes. No plantar calcaneal spur or enthesophyte or plantar soft tissue infiltration. Electronically Signed: Meghann Godwin MD at 8:01 EDT , Service support ,
--- NOTE | 2018-08-16 16:45 | RAD_ITS ---
STUDY: X-RAY - RIGHT FOOT CLINICAL: Male, 53 years old. Heel pain TECHNIQUE: 3 view(s) of the foot. COMPARISON: None. FINDINGS: There is a small plantar calcaneal spur. Normal visualized subtalar, talonavicular, calcaneocuboid, tarsal and tarsometatarsal articulations. Normal metatarsi. There is mild degenerative arthrosis of the metatarsophalangeal joint of the hallux . Normal tibial and fibular sesamoid bones. Normal interphalangeal joint of the great toe. Normal phalanges of the great toe. Normal second through fifth metatarsophalangeal joints. Normal interphalangeal joints and phalanges of the lesser toes. The soft tissue structures are unremarkable. There is no demonstrated fracture. RAD/Foot min 3 Views IMPRESSION: Small heel spur Electronically Signed: Justin Wolf MD at 20:17 EDT , Service support ,
[2018-08-16 17:59] LABS: Absolute Lymphocyte Count 2.14 X10^3/ul (0.83-4.51); Absolute Neutrophil Count 4.7 X10^3/uL (2.0-7.7); Basophil# 0.03 X10^3/uL; Basophil% 0.4 % (0-1); Eosinophil# 0.14 X10^3/uL; Eosinophils% 1.7 % (0-5); Hematocrit 41.5 % (40-54); Lymphocyte # 2.14 X10^3/ul (4.0); Lymphocyte % 26.7 % (19-41); Mean Corp Hgb Conc 33.7 g/gl (32-36); Mean Corpuscular Hgb 29.4 pg (27.0-32.0); Mean Platelet Vol. 10.8 fl (6.2-12.0); Monocyte# 0.98 X10^3/uL; Monocyte% 12.2 % (0-10); Neutrophil # 4.71 X10^3/uL (2.7-7.7); Neutrophil % 58.9 % (47-70); Platelet Count 343 K/mm3 (150-450); RBC Distribution Width CV 13.7 % (11.6-14.6); RBC Distribution Width SD 43.1 fl (35.1-43.9); Red Blood Count 4.77 M/mm3 (4.6-6.2)
[2018-08-16 18:02] LABS: POSITIVE COUNT NO; POSITIVE DIFFERENTIAL NO; POSITIVE MORPHOLOGY NO
[2018-08-16 18:27] LABS: ALB/GLOB Ratio 1.1 RATIO (0.9-2.4); AST(SGOT) 22 U/L (15-37); Alanine Aminotransfer ALT/SGPT 45 U/L (16-61); Albumin, Serum 3.9 g/dL (3.2-5.0); Alkaline Phosphatase 89 U/L (45-117); Anion Gap 9 (5-15); BUN 21 mg/dL (7-18); BUN/Creat Ratio 16.7 RATIO (10-20); Calcium,Total 8.6 mg/dL (8.5-10.1); Chloride 108 mmol/L (98-107); Creatinine, Serum 1.26 mg/dL (0.70-1.30); EST Glomerular Filtration Rate 64 mL/min (>60); Est Glom Filt Rate - Afr Amer 78 mL/min (>60); Globulin 3.6 g/dL (2.2-4.2); Glucose 89 mg/dL (74-106); Potassium 4.1 mmol/L (3.5-5.1); Protein, Total 7.5 g/dL (6.4-8.2); Sodium Level 141 mmol/L (136-145)
[2018-08-16 18:29] LABS: Hemoglobin A1c 5.5 % (4.2-6.3)
== END ==
PROVIDERS: Family Provider Family Medicine; PCP Family Medicine; Visit Provider Family Medicine
DX: M79.671 Pain in right foot (principal); M79.672 Pain in left foot; R73.02 Impaired glucose tolerance (oral); I10 Essential (primary) hypertension
CPT/HCPCS: 36415; 73630; 80053; 83036; 85025

== ENCOUNTER → 2018-08-23 07:47 | Outpatient (CLI) | payer BC, SELFPAY ==
--- NOTE | 2018-08-23 07:52 | ECHOD_ITS ---
Reason For Study: thoracic aortic aneurysm Procedure This was a 2D Doppler, Color Flow transthoracic echocardiogram. Exam performed in department. Left Ventricle Normal size and thickness. The estimated ejection fraction is 65 %. Stage 1 diastolic dysfunction. No regional wall motion abnormalities noted. Right Ventricle Normal size and thickness. Normal systolic function. Atria Normal left atrium. Normal right atrium. Normal atrial septum. Mitral Valve The mitral valve is structurally normal. No prolapse or stenosis seen. Tricuspid Valve Normal tricuspid valve. Trivial tricuspid valve insufficiency. Right ventricular systolic pressure estimated to be 29 mmHg. Aortic Valve Normal aortic valve. Trisinus/trileaflet aortic valve. Pulmonic Valve Normal pulmonic valve. Great Vessels Normal aortic root. Normal arch. Normal inferior vena cava. Inferior vena cava collapse with sniff. Pericardium/Pleural No pericardial effusion. MMode/2D Measurements & Calculations LVIDd: 4.9 cm IVSd: 0.89 cm Ao root diam: 4.2 cm LVIDs: 2.9 cm LVPWd: 0.94 cm LA dimension: 4.0 cm RVDd: 2.9 cm FS: 42.2 % LAV(MOD-bp): 41.4 ml LA A4 area: 15.3 cm2 RA A4 area: 12.2 cm2 LAV(MOD-bp) Indexed: 19.8 ml/m2 LAV(MOD-sp2): 40.9 ml LAV(MOD-sp4): 39.9 ml Time Measurements MV dec time: 0.20 sec Doppler Measurements & Calculations MV E max keaton: 74.1 cm/sec Lat Peak E' Keaton: 10.6 cm/sec Med Peak E' Keaton: 7.3 cm/sec MV A max keaton: 92.2 cm/sec E/E' lat: 7.0 E/E' med: 10.2 MV E/A: 0.80 Ao V2 max: 125.6 cm/sec LV V1 max: 93.3 cm/sec PA V2 max: 97.9 cm/sec Ao max P.3 mmHg LV V1 max P.5 mmHg TR max keaton: 241.3 cm/sec TR max P.3 mmHg Interpretation Summary The estimated ejection fraction is 65 %. Stage 1 diastolic dysfunction. Trivial tricuspid valve insufficiency. Right ventricular systolic pressure estimated to be 29 mmHg. There is no comparison study available. Ordering Physician: Mikel Pino Referring Physician: Mikel Pino Performed By: Ángela Louise, JAY, RVT
== END ==
PROVIDERS: Family Provider Family Medicine; PCP Family Medicine; Referring Provider Family Medicine; Visit Provider Family Medicine
DX: I71.2 Thoracic aortic aneurysm, without rupture (principal)
CPT/HCPCS: 93306

== ENCOUNTER → 2018-12-13 16:20 | Outpatient (CLI) | payer BC, SELFPAY ==
[2018-12-13 17:53] LABS: Anion Gap 9 (5-15); BUN 20 mg/dL (7-18); BUN/Creat Ratio 15.7 RATIO (10-20); Calcium,Total 8.9 mg/dL (8.5-10.1); Chloride 110 mmol/L (98-107); Creatinine, Serum 1.27 mg/dL (0.70-1.30); EST Glomerular Filtration Rate 63 mL/min (>60); Est Glom Filt Rate - Afr Amer 77 mL/min (>60); Glucose 91 mg/dL (74-106); Potassium 4.3 mmol/L (3.5-5.1); Sodium Level 142 mmol/L (136-145)
[2018-12-13 17:58] LABS: Hemoglobin A1c 5.5 % (4.2-6.3)
--- OUTSIDE RECORDS SUMMARY | 2019-02-17 16:16 | XMS RPT_ITS ---
:1965 Author Organization [employer] Name Relationship Address Phone JENAEKOMAL Unavailable [address] + [place] [address] RICELAND CABINET Unavailable [address] + [place] [address] KOMAL EMANUEL Unavailable [address] + [place] [address] RICELAND CABINET Unavailable [address] + [place] [address] KOMAL EMANUEL Unavailable [address] + [place] [address] RICELAND CABINET Unavailable [address] + [place] [address] KOURTNEY ELENA Unavailable [address] + [place] [address] KOMAL EMANUEL Unavailable [address] + [place] [address] RICELAND CABINET Unavailable [address] + [place] [address] KOURTNEY ELENA Unavailable [address] + [place] [address] KOMAL EMANUEL Unavailable [address] + [place] [address] RICELAND CABINET Unavailable [address] + [place] [address] KOURTNEY ELENA Unavailable [address] + [place] [address] KOMAL EMANUEL Unavailable [address] + [place] [address] RICELAND CABINET Unavailable [address] + [place] [address] KOURTNEY ELENA Unavailable [address] + [place] [address] KOMAL EMANUEL Unavailable [address] + [place] [address] RICELAND CABINET Unavailable [address] + [place] [address] KOURTNEY ELENA Unavailable [address] + [place] [address] KMOAL EMANUEL Unavailable [address] + [place] [address] RICELAND CABINET Unavailable [address] + [place] [address] KOURTNEY ELENA Unavailable [address] + [place] [address] KOMAL EMANUEL Unavailable [address] + [place] [address] RICELAND CABINET Unavailable [address] + [place] [address] KOURTNEY ELENA Unavailable [address] + [place] [address] KOMAL EMANUEL Unavailable [address] + [place] [address] RICELAND CABINET Unavailable [address] + [place] [address] Care Team Providers Name Role Phone Mikel Pino Attending Unavailable Mikel Pnio Primary Care Unavailable Mikel Pino Attending Unavailable [facility] Unavailable Mikel Pino Attending Unavailable [facility] Unavailable Quan Keane Attending Unavailable Mikel Pino Referring Unavailable Mikel Pino Attending Unavailable Mikel Pino Referring Unavailable Mikel Pino Primary Care Unavailable [facility] Primary [facility] Unavailable Mikel Pino Attending Unavailable Mikel Pino Attending Unavailable Esteban Demarco Attending Unavailable Esteban Demarco Referring Unavailable [facility] Unavailable Stacie Doty Attending Unavailable [facility] Unavailable Mikel Pino Attending Unavailable [facility] Unavailable PROBLEMS PROBLEMS DATE TYPE CONDITION / CODE ATTENDING STATUS SOURCE 08/16/2018 Unknown R73.02 - Impaired Mikel Pino glucose tolerance [facility] R73.02(ICD-10) Repository 08/16/2018 Unknown 790.22 - Impaired Mikel Pino glucose tolerance [facility] 790.22(ICD-9) Repository 08/16/2018 Unknown I10 - Essential Mikel Pino Alfred (primary) E [facility] hypertension / Hospital I10(ICD-10) Repository 08/16/2018 Unknown 401.9 - Mikel Pino Alfred Unspecified E [facility] essential Hospital hypertension / Repository 401.9(ICD-9) 08/16/2018 Unknown M79.671 - Pain in Mikel Pino right foot / E [facility] M79.671(ICD-10) Hospital Repository PROCEDURES PROCEDURES No Procedure Records FoundRESULTS RESULTS BASIC METABOLIC Collected: 12/13/2018 Status: F Source: [place] PROFILE (BMP) 4:23 PM [facility] HOSPITAL REPOSITORY TYPE CODE TESTS RESULT OUT OF RANGE REFERENCE UNITS LAB L501.0100 74-106 mg/dL Normal GLU 91 Result Comment: Please note revised GLUCOSE reference range effective 2017. LAB L501.1000 7-18 mg/dL High BUN 20 LAB L501.1100 0.70-1.30 mg/dL Normal CREAT,SERUM 1.27 Result Comment: The validity of the calculated GFR AND GFRAA in patients over 70 years has not been determined. Clinical correlation is essential. LAB L501.1110 >60 mL/min Normal EST GFR 63 Result Comment: Non- GFR Calc LAB L501.1115 >60 mL/min Normal EST GFR - AA 77 Result Comment: GFR Calc LAB L501.1300 10-20 RATIO Normal BUN/CRE 15.7 LAB L501.2200 8.5-10.1 mg/dL CA Normal 8.9 LAB L501.5300 136-145 mmol/L NA Normal 142 LAB L501.5600 3.5-5.1 mmol/L K Normal 4.3 LAB L501.5900 98-107 mmol/L High CL 110 LAB L501.6100 21.0-32.0 mmol/L Normal CO2 23.0 LAB L501.6200 5-15 Normal GAP 9 Performed By: #### L500.2500 #### [facility] [address] [place], [address] HEMOGLOBIN A1C Collected: 12/13/2018 Status: F Source: [place] 4:23 PM [facility] REPOSITORY TYPE CODE TESTS RESULT OUT OF RANGE REFERENCE UNITS LAB L501.9985 4.2-6.3 % Normal HGB A1C 5.5 Performed By: #### L501.9985 #### [facility] [address] [place], [address] ECHOCARDIOGRAM COMPLETE Observed: 08/23/2018 Status: F Source: [place] 3:15 PM [facility] REPOSITORY [facility] Cardiovascular Services [address] [facility] [place] [address] Echo Complete 08/23/18 0752 MR#: [id number] Acct: [id number] Name: DOMINGO EMANUEL Rep #: [id number] : 1965 53 From: Quan Keane MD Attending Dr: Mikel Pino MD Status: REG CLI Ordering Dr: Mikel Pino MD Date: 08/23/18 Location: [facility] Sex: M C Admitted: Reason For Study: thoracic aortic aneurysm Procedure This was a 2D Doppler, Color Flow transthoracic echocardiogram. Exam performed in department. Left Ventricle Normal size and thickness. The estimated ejection fraction is 65 %. Stage 1 diastolic dysfunction. No regional wall motion abnormalities noted. Right Ventricle Normal size and thickness. Normal systolic function. Atria Normal left atrium. Normal right atrium. Normal atrial septum. Mitral Valve The mitral valve is structurally normal. No prolapse or stenosis seen. Tricuspid Valve Normal tricuspid valve. Trivial tricuspid valve insufficiency. Right ventricular systolic pressure estimated to be 29 mmHg. Aortic Valve Normal aortic valve. Trisinus/trileaflet aortic valve. Pulmonic Valve Normal pulmonic valve. Great Vessels Normal aortic root. Normal arch. Normal inferior vena cava. Inferior vena cava collapse with sniff. Pericardium/Pleural No pericardial effusion. MMode/2D Measurements AND Calculations LVIDd: 4.9 cm IVSd: 0.89 cm Ao root diam: 4.2 cm LVIDs: 2.9 cm LVPWd: 0.94 cm LA dimension: 4.0 cm RVDd: 2.9 cm FS: 42.2 % LAV(MOD-bp): 41.4 ml LA A4 area: 15.3 cm2 RA A4 area: 12.2 cm2 LAV(MOD-bp) Indexed: 19.8 ml/m2 LAV(MOD-sp2): 40.9 ml LAV(MOD-sp4): 39.9 ml Time Measurements MV dec time: 0.20 sec Doppler Measurements AND Calculations MV E max keaton: 74.1 cm/sec Lat Peak E' Keaton: 10.6 cm/sec Med Peak E' Keaton: 7.3 cm/sec MV A max keaton: 92.2 cm/sec E/E' lat: 7.0 E/E' med: 10.2 MV E/A: 0.80 Ao V2 max: 125.6 cm/sec LV V1 max: 93.3 cm/sec PA V2 max: 97.9 cm/sec Ao max P.3 mmHg LV V1 max P.5 mmHg TR max keaton: 241.3 cm/sec TR max P.3 mmHg Interpretation Summary The estimated ejection fraction is 65 %. Stage 1 diastolic dysfunction. Trivial tricuspid valve insufficiency. Right ventricular systolic pressure estimated to be 29 mmHg. There is no comparison study available. Ordering Physician: Mikel Pino Referring Physician: Mikel Pino Performed By: Ángela Louise, JAY, RVT 08/23/18 1514 Date Quan Keane MD CC: Mikel Pino MD Date Dictated: 08/23/18 0752 Date Transcribed: 08/23/181513 Airplane Patroller: Signed FOOT MIN 3 VIEWS Observed: 08/16/2018 Status: F Source: [place] 4:46 PM [facility] REPOSITORY [facility] Imaging Services [address] [place] [address] Foot min 3 Views MR#: [id number] Acct: [id number] Name: DOMINGO EMANUEL Rep #: [id number] : 1965 M 53 From: Meghann Godwin MD PCP: Ck Hsu MD Status: REG CLI Study: Foot min 3 Views Date of Exam: 08/16/18 Exam# [id number] Ordering Dr: Mikel Pino MD STUDY: X-RAY - LEFT FOOT CLINICAL: Male, 53 years old. Bilateral heel pain TECHNIQUE: 3 view(s) of the foot. COMPARISON: None. FINDINGS: Normal talus, calcaneus, and tarsal bones. Normal visualized subtalar, talonavicular, calcaneocuboid, tarsal and tarsometatarsal articulations. Normal metatarsi. There is minimal degenerative arthrosis of the metatarsophalangeal joint of the hallux . Normal tibial and fibular sesamoid bones. Normal interphalangeal joint of the great toe. Normal phalanges of the great toe. Normal second through fifth metatarsophalangeal joints. Normal interphalangeal joints and phalanges of the lesser toes. The soft tissue structures are unremarkable. RAD/Foot min 3 Views IMPRESSION: Minimal degenerative changes. No plantar calcaneal spur or enthesophyte or plantar soft tissue infiltration. Electronically Signed: Meghann Godwin MD at 8:01 EDT , Service support , CC: Mikel Pino MD; Ck Hsu MD Airplane Patroller: Signed FOOT MIN 3 VIEWS Observed: 08/16/2018 Status: F Source: [place] 4:46 PM [facility] REPOSITORY [facility] Imaging Services [address] [place] [address] Foot min 3 Views MR#: [id number] Acct: [id number] Name: DOMINGO EMANUEL Rep #: [id number] : 1965 M 53 From: Justin Wolf MD PCP: Ck Hsu MD Status: REG CLI Study: Foot min 3 Views Date of Exam: 08/16/18 Exam# [id number] Ordering Dr: Mikel Pino MD STUDY: X-RAY - RIGHT FOOT CLINICAL: Male, 53 years old. Heel pain TECHNIQUE: 3 view(s) of the foot. COMPARISON: None. FINDINGS: There is a small plantar calcaneal spur. Normal visualized subtalar, talonavicular, calcaneocuboid, tarsal and tarsometatarsal articulations. Normal metatarsi. There is mild degenerative arthrosis of the metatarsophalangeal joint of the hallux . Normal tibial and fibular sesamoid bones. Normal interphalangeal joint of the great toe. Normal phalanges of the great toe. Normal second through fifth metatarsophalangeal joints. Normal interphalangeal joints and phalanges of the lesser toes. The soft tissue structures are unremarkable. There is no demonstrated fracture. RAD/Foot min 3 Views IMPRESSION: Small heel spur Electronically Signed: Justin Wolf MD at 20:17 EDT , Service support , CC: Mikel Pino MD; Ck Hsu MD Airplane Patroller: Signed CBC W/DIFF, AUTOMATED Collected: 08/16/2018 Status: F Source: [place] 4:31 PM [facility] REPOSITORY Order Comment: Order Date: 08/16/18 Order Info: 0184-1 - CBCD TYPE CODE TESTS RESULT OUT OF RANGE REFERENCE UNITS LAB L100.1000 4.4-11.0 K/mm3 Normal WBC 8.0 LAB L100.1200 4.6-6.2 M/mm3 Normal RBC 4.77 LAB L100.1300 13.0-16.5 g/dl Normal HGB 14.0 LAB L100.1400 40-54 % Normal HCT 41.5 LAB L100.1500 80-94 fL Normal MCV 87.0 LAB L100.1600 27.0-32.0 pg Normal MCH 29.4 LAB L100.1700 32-36 g/gl Normal MCHC 33.7 LAB L100.1810 11.6-14.6 % Normal RDW CV 13.7 LAB L100.1820 35.1-43.9 fl Normal RDW SD 43.1 LAB L100.1900 150-450 K/mm3 Normal PLT 343 LAB L100.2000 6.2-12.0 fl Normal MPV 10.8 LAB L100.2100 47-70 % Normal NEUT% 58.9 LAB L100.2200 19-41 % Normal LY% 26.7 LAB L100.2300 0-10 % High MONO% 12.2 LAB L100.2400 0-5 % Normal EO% 1.7 LAB L100.2500 0-1 % Normal BASO% 0.4 LAB L100.2550 0.0-0.9 % Normal IM GRAN % 0.100 Result Comment: IG% - Immature Granulocytes (promyelocytes, myelocytes and metamyelocytes) > 1% indicates that a LEFT SHIFT is Present. LAB L100.2620 2.0-7.7 X10 3/uL Normal Absolute Neut 4.7 LAB L100.2720 0.83-4.51 X10 3/ul Normal Absolute Lymph 2.14 Performed By: #### L100.0100, L500.4050, L501.9985 #### [facility] [address] [place], [address] COMPREHENSIVE METABOLIC Collected: 08/16/2018 Status: F [facility] REPOSITORY Order Comment: Order Date: 08/16/18 Order Info: 0786-1 - CMP TYPE CODE TESTS RESULT OUT OF RANGE REFERENCE UNITS LAB L501.0100 74-106 mg/dL Normal GLU 89 Result Comment: Please note revised GLUCOSE reference range effective 2017. LAB L501.1000 7-18 mg/dL High BUN 21 LAB L501.1100 0.70-1.30 mg/dL Normal CREAT,SERUM 1.26 Result Comment: The validity of the calculated GFR AND GFRAA in patients over 70 years has not been determined. Clinical correlation is essential. LAB L501.1110 >60 mL/min Normal EST GFR 64 Result Comment: Non- GFR Calc LAB L501.1115 >60 mL/min Normal EST GFR - AA 78 Result Comment: GFR Calc LAB L501.1300 10-20 RATIO Normal BUN/CRE 16.7 LAB L501.1500 6.4-8.2 g/dL T Normal PROT 7.5 LAB L501.1800 3.2-5.0 g/dL Normal ALB 3.9 LAB L501.1950 2.2-4.2 g/dL Normal GLOB 3.6 LAB L501.2000 0.9-2.4 RATIO Normal A/G 1.1 LAB L501.2200 8.5-10.1 mg/dL CA Normal 8.6 LAB L501.4100 15-37 U/L Normal AST 22 LAB L501.4305 45-117 U/L Normal ALK P 89 LAB L501.4405 16-61 U/L Normal ALT 45 LAB L501.4600 0.20-1.00 mg/dL T Normal BILI 0.40 LAB L501.5300 136-145 mmol/L NA Normal 141 LAB L501.5600 3.5-5.1 mmol/L K Normal 4.1 LAB L501.5900 98-107 mmol/L High CL 108 LAB L501.6100 21.0-32.0 mmol/L Normal CO2 24.0 LAB L501.6200 5-15 Normal GAP 9 Performed By: #### L100.0100, L500.4050, L501.9985 #### [facility] [address] [facility] [place], [address] HEMOGLOBIN A1C Collected: 08/16/2018 Status: F Source: [place] 4:31 PM [facility] REPOSITORY Order Comment: Order Date: 08/16/18 Order Info: 4548-4 - A1C TYPE CODE TESTS RESULT OUT OF RANGE REFERENCE UNITS LAB L501.9985 4.2-6.3 % Normal HGB A1C 5.5 Performed By: #### L100.0100, L500.4050, L501.9985 #### [facility] [address] [facility] [place], [address] DOWNTIME REPORT Observed: 05/18/2018 Status: F Source: [place] 2:18 PM [facility] REPOSITORY [facility] Medical Records Department [address] [place] [address] Downtime Report MR#: [id number] Acct: [id number] Name: DOMINGO EMANUEL Rep #: [id number] : 1965 52 From: Yobani Cuellar PCP: Status: REG CLI This patient was seen during an EMR downtime May 01, 2018 - May 08, 2018. This patient may have a combination of paper and electronic documentation or all paper documentation. All documentation is viewable within the e-chart portion of [facility] for each patient visit. BASIC METABOLIC Collected: 05/16/2018 Status: F Source: [place] PROFILE (BMP) 10:24 AM [facility] REPOSITORY Order Comment: PLEASE ADD BMP AND A1C TO BLOOD DONE 05/15/18 PER TYPE CODE TESTS RESULT OUT OF RANGE REFERENCE UNITS LAB L501.0100 74-106 mg/dL High GLU 122 Result Comment: Fasting Glucose result from 100 to 125 mg/dL suggests IMPAIRED HOMEOSTASIS per A.D.A. criteria. Please note revised GLUCOSE reference range effective 2017. LAB L501.1000 7-18 mg/dL High BUN 19 LAB L501.1100 0.70-1.30 mg/dL Normal CREAT,SERUM 1.23 Result Comment: The validity of the calculated GFR AND GFRAA in patients over 70 years has not been determined. Clinical correlation is essential. LAB L501.1110 >60 mL/min Normal EST GFR 66 Result Comment: Non- GFR Calc LAB L501.1115 >60 mL/min Normal EST GFR - AA 80 Result Comment: GFR Calc LAB L501.1300 10-20 RATIO Normal BUN/CRE 15.4 LAB L501.2200 8.5-10.1 mg/dL CA Normal 8.6 LAB L501.5300 136-145 mmol/L NA Normal 137 LAB L501.5600 3.5-5.1 mmol/L K Normal 3.5 LAB L501.5900 98-107 mmol/L CL Normal 103 LAB L501.6100 21.0-32.0 mmol/L Normal CO2 27.0 LAB L501.6200 5-15 Normal GAP 7 Performed By: #### L500.2500 #### [facility] [address] [facility]. [place], [place], [address] HEMOGLOBIN A1C Collected: 05/16/2018 Status: F Source: [place] 10:24 AM [facility] REPOSITORY Order Comment: PLEASE ADD BMP AND A1C TO BLOOD DONE 05/15/18 PER TYPE CODE TESTS RESULT OUT OF RANGE REFERENCE UNITS LAB L501.9985 4.2-6.3 % Normal HGB A1C 5.7 Performed By: #### L501.9985 #### [facility] [address] [facility] [place], [address] CBC-COMPLETE BLOOD CNT Collected: 05/15/2018 Status: F Source: [place] NO DIFF 10:24 AM [facility] REPOSITORY Order Comment: Order Date: 05/15/18 Order Info: 12317-6 - CBC CHEMISTRY TUBE DRAWN AN EXTRA TYPE CODE TESTS RESULT OUT OF RANGE REFERENCE UNITS LAB L100.1000 4.4-11.0 K/mm3 Normal WBC 6.9 LAB L100.1200 4.6-6.2 M/mm3 Normal RBC 5.04 LAB L100.1300 13.0-16.5 g/dl Normal HGB 14.9 LAB L100.1400 40-54 % Normal HCT 42.8 LAB L100.1500 80-94 fL Normal MCV 84.9 LAB L100.1600 27.0-32.0 pg Normal MCH 29.6 LAB L100.1700 32-36 g/gl Normal MCHC 34.8 LAB L100.1810 11.6-14.6 % Normal RDW CV 13.6 LAB L100.1820 35.1-43.9 fl Normal RDW SD 41.6 LAB L100.1900 150-450 K/mm3 Normal PLT 344 LAB L100.2000 6.2-12.0 fl Normal MPV 10.5 Performed By: #### L100.0500 #### [facility] [address] [place], [place], [address] CBC W/DIFF, AUTOMATED Collected: 05/08/2018 Status: F Source: [place] 4:03 PM [facility] REPOSITORY TYPE CODE TESTS RESULT OUT OF RANGE REFERENCE UNITS LAB L100.1000 4.4-11.0 K/mm3 Normal WBC 8.7 LAB L100.1200 4.6-6.2 M/mm3 Normal RBC 5.04 LAB L100.1300 13.0-16.5 g/dl Normal HGB 14.5 LAB L100.1400 40-54 % Normal HCT 43.5 LAB L100.1500 80-94 fL Normal MCV 86.3 LAB L100.1600 27.0-32.0 pg Normal MCH 28.8 LAB L100.1700 32-36 g/gl Normal MCHC 33.3 LAB L100.1810 11.6-14.6 % Normal RDW CV 13.5 LAB L100.1820 35.1-43.9 fl Normal RDW SD 42.6 LAB L100.1900 150-450 K/mm3 Normal PLT 337 LAB L100.2000 6.2-12.0 fl Normal MPV 10.6 LAB L100.2100 47-70 % Normal NEUT% 59.3 LAB L100.2200 19-41 % Normal LY% 28.4 LAB L100.2300 0-10 % High MONO% 10.3 LAB L100.2400 0-5 % Normal EO% 1.6 LAB L100.2500 0-1 % Normal BASO% 0.3 LAB L100.2550 0.0-0.9 % Normal IM GRAN % 0.100 Result Comment: IG% - Immature Granulocytes (promyelocytes, myelocytes and metamyelocytes) > 1% indicates that a LEFT SHIFT is Present. LAB L100.2620 2.0-7.7 X10 3/uL Normal Absolute Neut 5.2 LAB L100.2720 0.83-4.51 X10 3/ul Normal Absolute Lymph 2.48 Performed By: #### L100.0100 #### [facility] [address] [place], [address] COMPREHENSIVE METABOLIC Collected: 05/08/2018 Status: F Source: [facility] 4:03 PM [facility] REPOSITORY TYPE CODE TESTS RESULT OUT OF RANGE REFERENCE UNITS LAB L501.0100 74-106 mg/dL High GLU 123 Result Comment: Fasting Glucose result from 100 to 125 mg/dL suggests IMPAIRED HOMEOSTASIS per A.D.A. criteria. Please note revised GLUCOSE reference range effective 2017. LAB L501.1000 7-18 mg/dL High BUN 23 LAB L501.1100 0.70-1.30 mg/dL High CREAT,SERUM 1.35 Result Comment: The validity of the calculated GFR AND GFRAA in patients over 70 years has not been determined. Clinical correlation is essential. LAB L501.1110 >60 mL/min Low EST GFR 59 Result Comment: Non- GFR Calc LAB L501.1115 >60 mL/min Normal EST GFR - AA 72 Result Comment: GFR Calc LAB L501.1300 10-20 RATIO Normal BUN/CRE 17.0 LAB L501.1500 6.4-8.2 g/dL T Normal PROT 7.9 LAB L501.1800 3.2-5.0 g/dL Normal ALB 3.9 LAB L501.1950 2.2-4.2 g/dL Normal GLOB 4.0 LAB L501.2000 0.9-2.4 RATIO Normal A/G 1.0 LAB L501.2200 8.5-10.1 mg/dL CA Normal 8.8 LAB L501.4100 15-37 U/L Normal AST 20 Result Comment: Slight Hemolysis, Result may be falsely increased. LAB L501.4305 45-117 U/L Normal ALK P 95 LAB L501.4405 16-61 U/L Normal ALT 42 LAB L501.4600 0.20-1.00 mg/dL Normal T BILI 0.30 LAB L501.5300 136-145 mmol/L Normal NA 141 LAB L501.5600 3.5-5.1 mmol/L Low K 3.4 Result Comment: Slight Hemolysis, Result may be falsely increased. LAB L501.5900 98-107 mmol/L Normal CL 106 LAB L501.6100 21.0-32.0 mmol/L Normal CO2 25.0 LAB L501.6200 5-15 Normal GAP 10 Performed By: #### L500.4050 #### [facility] [address] [place], [place], [address] PROSTATE BIOPSY Observed: 01/27/2018 Status: F Source: [facility] 9:20 AM [facility] REPOSITORY Patient: DOMINGO EMANUEL : 1965 (52/M) Acct Num: [id number] Phys: Nilam LEE,Esteban Rod Unit Num: [id number] [facility] Specimen: [id number] Received: 01/27/18 1550 Spec Type: PROST BX TISSUES TISSUES: A. PROSTATE RIGHT B. PROSTATE RIGHT C. PROSTATE RIGHT D. PROSTATE LEFT E. PROSTATE LEFT F. PROSTATE LEFT GROSS DESCRIPTION A - Received is one container designated prostate, right base. The specimen consists of two elongated fragments of light mcnamara-white soft tissue measuring 1 and 1.5 cm in length and 0.1 cm in diameter. The specimen is totally submitted in one cassette. B - Received is one container designated prostate, right mid. The specimen consists of two elongated fragments of light mcnamara-white soft tissue measuring 1 and 1.5 cm in length and 0.1 cm in diameter. The specimen is totally submitted in one cassette. C - Received is one container designated prostate, right apex. The specimen consists of two elongated fragments of light mcnamara-white soft tissue each measuring 1.5 cm in length and 0.1 cm in diameter. The specimen is totally submitted in one cassette. D - Received is one container designated prostate, left base. The specimen consists of three elongated fragments of light mcnamara-white soft tissue measuring 0.5, 0.8 and 1 cm in length and 0.1 cm in diameter. The specimen is totally submitted in one cassette. E - Received is one container designated prostate, left mid. The specimen consists of two elongated fragments of light mcnamara-white soft tissue each measuring 1.5 cm in length and 0.1 cm in diameter. The specimen is totally submitted in one cassette. F - Received is one container designated prostate, left apex. The specimen consists of two elongated fragments of light mcnamara-white soft tissue measuring 1 and 1.5 cm in length and 0.1 cm in diameter. The specimen is totally submitted in one cassette. / CADEN:abdullahi 01/30/18 TC:3 CPT: 88454 x6 HEADER OPERATION: Transrectal ultrasound-guided needle biopsy prostate PRE-OP DIAGNOSIS: Elevated PSA, family history of prostate cancer TISSUE SUBMITTED: A - Right base, B - Right mid, C - Right apex, D - Left base, E - Left mid, F - Left apex MICROSCOPIC DESCRIPTION Slides are reviewed. MICROSCOPIC DIAGNOSIS A. Right prostate, base, core biopsy: Prostatic tissue, negative for malignancy. B. Right prostate, mid, core biopsy: Prostatic tissue, negative for malignancy. C. Right prostate, apex, core biopsy: Prostatic tissue, negative for malignancy. Focal mild chronic inflammation. D. Left prostate, base, core biopsy: Prostatic tissue, negative for malignancy. E. Left prostate, mid, core biopsy: Prostatic tissue, negative for malignancy. Focal chronic inflammation. F. Left prostate, apex, core biopsy: Prostatic tissue, negative for malignancy. CADEN:abdullahi 01/31/18 Signed Enio Maurer 01/31/18 <signature on file> Performed By: #### PPROSBIL #### [facility] [address] [place], [address] PSA,TOTAL- DIAGNOSTIC Collected: 01/12/2018 Status: F Source: [place] 4:37 PM [facility] REPOSITORY TYPE CODE TESTS RESULT OUT OF REFERENCE UNITS RANGE LAB L501.9940 0.0-4.0 ng/mL PSA, High DIAGNOSTIC 5.16 Result Comment: This test was performed using the TPSA assay method for the [employer] chemistry system. Values obtained with different assay methods cannot be used interchangably. When changing PSA assays in the course of monitoring a patient, additional sequential testing should be carried out to confirm baseline values. Performed By: #### L501.9940 #### [facility] [address] [place], [address] URINALYSIS, COMPLETE Collected: 12/30/2017 Status: F Source: [place] 3:03 PM [facility] REPOSITORY Order Comment: How was Urine Obtained? CLEAN CATCH TYPE CODE TESTS RESULT OUT OF RANGE REFERENCE UNITS LAB L400.3000 Yellow COLOR Normal Yellow LAB L400.3050 Clear Normal CLARITY Clear LAB L400.3200 Normal mg/dl Normal GLUCOSE, UR Normal LAB L400.3300 Negative mg/dL Normal BILIRUBIN URINE Negative LAB L400.3400 Negative mg/dl Normal KETONE UR Negative LAB L400.3465 1.002-1.030 Normal SP.GR. DIPSTX 1.010 LAB L400.3550 5.0 - 8.0 pH UR Normal 7.0 LAB L400.3600 Negative mg/dl PROT Normal DIPSTX Negative LAB L400.3700 Normal mg/dl Normal UROBILI Normal LAB L400.3750 Negative Normal NITRITE UR Negative LAB L400.3780 Negative /ul Normal OCCULT BLOOD-UR Negative LAB L400.3800 Negative /ul LEUK Normal ESTERASE Negative LAB L400.4050 0-5 /hpf WBC 0 Normal SEEN LAB L400.4100 0-5 /hpf Normal RBC-UA 0-5 SEEN LAB L400.4150 0-5 /hpf SQUAM 0 Normal EPI SEEN LAB L400.4300 None Seen /hpf 0 Normal BACTERIA SEEN LAB L400.4350 <or=2+ /hpf 0 Normal MUCUS, URINE SEEN Performed By: #### L400.0001 #### [facility] [address] [place], [address] HEMOGLOBIN A1C Collected: 12/30/2017 Status: F Source: [place] 3:03 PM [facility] REPOSITORY Order Comment: Order Date: 12/30/17 Order Info: 4548-4 - A1C TYPE CODE TESTS RESULT OUT OF RANGE REFERENCE UNITS LAB L501.9985 4.2-6.3 % Normal HGB A1C 5.6 Performed By: #### L501.9985, L501.9520 #### [facility] [address] [place], [address] THYROID STIM HORMONE Collected: 12/30/2017 Status: F Source: [place] (TSH) 3:03 PM [facility] REPOSITORY Order Comment: Order Date: 12/30/17 Order Info: [id number] - MG Order Info: 3016-3 - TSH Order Info: 2857-1 - PSA TYPE CODE TESTS RESULT OUT OF RANGE REFERENCE UNITS LAB L501.9520 0.358-3.74 uIU/mL Normal TSH 1.15 Performed By: #### L501.9985, L501.9520 #### [facility] [address] [place], [address] MAGNESIUM Collected: 12/30/2017 Status: F Source: ALFRED 3:03 PM [facility] REPOSITORY Order Comment: Order Date: 12/30/17 Order Info: 32048-8 - MG Order Info: 3016-3 - TSH Order Info: 2857-1 - PSA TYPE CODE TESTS RESULT OUT OF RANGE REFERENCE UNITS LAB L501.5200 1.6-2.6 mg/dL Normal MG 2.4 Result Comment: Please note revised Magnesium reference range effective 2017. Performed By: #### L501.5200 #### [facility] [address] [place], [address] PSA,TOTAL - ANNUAL Collected: 12/30/2017 Status: F Source: [place] SCREEN 3:03 PM [facility] REPOSITORY Order Comment: Order Date: 12/30/17 Order Info: [id number] - MG Order Info: 3016-3 - TSH Order Info: 2857-1 - PSA TYPE CODE TESTS RESULT OUT OF REFERENCE UNITS RANGE LAB L501.9910 0.00-4.00 ng/mL High PSA,TOT 4.64 SCREEN Result Comment: This test was performed using the TPSA assay method for the [employer] chemistry system. Values obtained with different assay methods cannot be used interchangably. When changing PSA assays in the course of monitoring a patient, additional sequential testing should be carried out to confirm baseline values. Performed By: #### L501.9910 #### [facility] [address] [place], [address] ALLERGIES ALLERGIES DATE TYPE / CODE NAME / CODE REACTION SEVERITY SOURCE 12/12/2017 Drug No Known Unknown [facility] Allergy/4160 Allergies/F00 Hospital 88575(SNOMED 5411440(RXNOR Repository CT) M) ENCOUNTERS ENCOUNTERS ADMIT/DISCHARGE ACCOUNT ADMITTING ENCOUNTER LOCATION SOURCE NUMBER CLASS 12/13/2018 [id number] Ambulatory [place] 6 [facility] ing:MFPLAB Repository 08/23/2018 [id number] Ambulatory BMSBuilding:W [place] 5 [facility] Repository 08/23/2018 [id number] Ambulatory [place] 2 [facility] ing:[facility]S Repository 08/16/2018 [id number] Ambulatory [place] 4 [facility] ing:MFPLAB Repository 05/16/2018 [id number] Ambulatory [place] 8 [facility] ing:LAB.FUTUR Repository E 05/15/2018 [id number] Ambulatory [place] 5 [facility] ing:MFPLAB Repository 05/08/2018 [id number] Ambulatory [place] 3 [facility] ing:MFPLAB Repository 01/27/2018 [id number] Ambulatory [place] 3 [facility] ing:LABSPEC Repository 01/12/2018 [id number] Ambulatory [place] 6 [facility] ing:LAB Repository 12/30/2017 [id number] Ambulatory [place] 5 [facility] ing:MFPLAB Repository PAYERS PAYERS ENCOUNTER GUARANTOR PAYER SUBSCRIBER SOURCE 12/13/2018 [place] Yusuf [place] [id number] Insurance:ANTHEMPolic LUDINGTONDOB: [facility]ly [facility] y Number: [id number] [id number] Repository [address]Qwl: (330) Date:2205-17-38[phone] () [place] [address]RH: 12/13/2018 Secondary NOT GIVENUNK [place] Insurance:SELF PAY [facility] Number: Effective Repository Date:2018-12-13 08/23/2018 DOM[place]O A Primary [place] A [place] [id number] Insurance:ANTHEMPolic LUDINGTONDOB: Formerly [facility] y Number: [id number], [place] [id number] Repository [address]Ces: (330) Date:3587-61-08YH [phone] () [place] [address]YK: 08/23/2018 Secondary NOT GIVENUNK [place] Insurance:SELF PAY [facility] Number: Effective Repository Date:2018-08-23 08/23/2018 DOMINGO A Primary DOM[place] A [place] [id number] Insurance:ANTHEMPolic LUDINGTONDOB: Formerly [facility] y Number: [id number], [place] [id number] Repository [address]Ajt: (330) Date:2722-74-95GD [phone] () [place] [address]HE: 08/23/2018 Secondary NOT GIVENUNK [place] Insurance:SELF PAY [facility] Number: Effective Repository Date:2018-08-18 08/16/2018 DOMINGO A Primary DOMINGO A [place] [id number] Insurance:ANTHEMPolic LUDINGTONDOB: Formerly [facility] y Number: [id number], [place] [id number] Repository [address]Fyr: (330) Date:9998-80-52AA [phone] () [place] [address]MG: 08/16/2018 Secondary NOT GIVENUNK [place] Insurance:SELF PAY [facility] Number: Effective Repository Date:2018-08-16 05/16/2018 DOMINGO Primary DOMINGO Simon [id number] Insurance:ANTHEMPolic LUDINGTONDOB: [facility] BLAS y Number: [id number], [place] [id number] Repository [address]Uss: (330) Date:3563-61-36TP [phone] () [id number] [place] [address]TW: 05/16/2018 Secondary NOT GIVENUNK [place] Insurance:SELF PAY [facility] Number: Effective Repository Date:2018-05-16 05/15/2018 DOMINGO Primary DOMINGO Simon [id number] Insurance:ANTHEMPolic LUDINGTONDOB: Formerly [facility] y Number: [id number], [place] [id number] Repository [address]Kqp: (330) Date:1470-39-38XY [phone] () [id number], [place] [address]OW: 05/15/2018 Secondary NOT GIVENUNK [place] Insurance:SELF PAY [facility] Number: Effective Repository Date:2018-05-15 05/08/2018 DOMINGO Primary DOMINGO Simon [id number] Insurance:ANTHEMPolic LUDINGTONDOB: Formerly [facility] y Number: [id number], [place] [id number] Repository [address]Dea: (330) Date:8414-39-31SE [phone] () [id number], [place] [address]UU: 05/08/2018 Secondary NOT GIVENUNK [place] Insurance:SELF PAY [facility] Number: Effective Repository Date:2018-05-08 01/27/2018 DOMINGO Primary DOMINGO Simon [id number] Insurance:ANTHEMPolic LUDINGTONDOB: Formerly [facility] y Number: [id number], [place] [id number] Repository [address]Ced: (330) Date:7921-03-18JI [phone] () [id number], [place] [address]YM: 01/27/2018 Secondary NOT GIVENUNK [place] Insurance:SELF PAY [facility] Number: Effective Repository Date:2018-01-27 01/12/2018 DOM[place] Primary DOMINGO Simon [id number] Insurance:ANTHEMPolic LUDINGTONDOB: Formerly [facility] y Number: [id number], [place] [id number] Repository [address]Bwy: (330) Date:9538-54-93MB [phone] () 608[address]MZVYBEA, [place] [address]IY: 01/12/2018 Secondary NOT GIVENUNK [place] Insurance:SELF PAY [facility] Number: Effective Repository Date:2018-01-12 12/30/2017 DOMINGO Primary DOMINGO Simon [id number] Insurance:ANTHEMPolic LUDINGTONDOB: Formerly [facility] y Number: [id number], [place] [id number] Repository [address]Pzq: (330) Date:5153-33-79EW [phone] () [id number], [place] [address]CZ: 12/30/2017 Secondary NOT GIVENUNK [place] Insurance:SELF PAY [facility] Number: Effective Repository Date:2017-12-30
== END ==
PROVIDERS: Family Provider Family Medicine; PCP Family Medicine; Visit Provider Family Medicine
DX: I10 Essential (primary) hypertension (principal); R73.02 Impaired glucose tolerance (oral)
CPT/HCPCS: 36415; 80048; 83036

== ENCOUNTER → 2019-07-27 15:49 | Outpatient (CLI) | payer BC, SELFPAY ==
[2019-07-27 17:45] LABS: AST(SGOT) 14 U/L (15-37); Alanine Aminotransfer ALT/SGPT 44 U/L (16-61); Albumin, Serum 3.9 g/dL (3.2-5.0); Alkaline Phosphatase 107 U/L (45-117); Anion Gap 7 (5-15); BUN 19 mg/dL (7-18); BUN/Creat Ratio 13.9 RATIO (10-20); Calcium,Total 8.8 mg/dL (8.5-10.1); Chloride 110 mmol/L (98-107); Creatinine, Serum 1.37 mg/dL (0.70-1.30); EST Glomerular Filtration Rate 58 mL/min (>60); Est Glom Filt Rate - Afr Amer 70 mL/min (>60); Globulin 3.8 g/dL (2.2-4.2); Glucose 84 mg/dL (74-106); PSA,Total- Diagnostic 3.41 ng/mL (0.0-4.0); Potassium 4.2 mmol/L (3.5-5.1); Protein, Total 7.7 g/dL (6.4-8.2); Sodium Level 141 mmol/L (136-145)
[2019-07-27 17:48] LABS: Hemoglobin A1c 5.5 % (4.2-6.3)
== END ==
PROVIDERS: Family Provider Family Medicine; PCP Family Medicine; Referring Provider Family Medicine; Visit Provider Family Medicine
DX: I10 Essential (primary) hypertension (principal); R73.02 Impaired glucose tolerance (oral); R97.20 Elevated prostate specific antigen [PSA]
CPT/HCPCS: 36415; 80053; 83036; 84153

== ENCOUNTER → 2020-01-25 16:05 | Outpatient (CLI) | payer BC, SELFPAY ==
[2020-01-25 17:55] LABS: Hemoglobin A1c 5.7 % (4.2-6.3)
[2020-01-25 18:00] LABS: AST(SGOT) 21 U/L (15-37); Alanine Aminotransfer ALT/SGPT 35 U/L (16-61); Albumin, Serum 3.9 g/dL (3.2-5.0); Alkaline Phosphatase 97 U/L (45-117); Anion Gap 9 (5-15); BUN 20 mg/dL (7-18); BUN/Creat Ratio 14.7 RATIO (10-20); Calcium,Total 8.3 mg/dL (8.5-10.1); Chloride 107 mmol/L (98-107); Creatinine, Serum 1.36 mg/dL (0.70-1.30); EST Glomerular Filtration Rate 58 mL/min (>60); Est Glom Filt Rate - Afr Amer 71 mL/min (>60); Globulin 3.8 g/dL (2.2-4.2); Glucose 90 mg/dL (74-106); PSA,Total- Diagnostic 3.24 ng/mL (0.0-4.0); Potassium 3.7 mmol/L (3.5-5.1); Protein, Total 7.7 g/dL (6.4-8.2); Sodium Level 139 mmol/L (136-145)
== END ==
PROVIDERS: PCP Family Medicine; Visit Provider Family Medicine
DX: I10 Essential (primary) hypertension (principal); R73.02 Impaired glucose tolerance (oral); R97.20 Elevated prostate specific antigen [PSA]
CPT/HCPCS: 36415; 80053; 83036; 84153

== ENCOUNTER → 2020-05-13 15:13 | Outpatient (CLI) | payer BC, SELFPAY ==
--- NOTE | 2020-05-13 15:17 | RAD_ITS ---
STUDY: X-RAY - LUMBAR SPINE REASON FOR EXAM: Male, 54 years old. Back pain recently, some down the right side -- no injury TECHNIQUE: 5 view(s) of the lumbar spine were obtained. COMPARISON: None FINDINGS: Normal lumbar lordosis. There is no substantial scoliosis. There is a normal alignment of the vertebrae. Normal vertebral bodies and endplates. Normal disc space heights. There is no demonstrated fracture. There is atherosclerotic calcification of the abdominal aorta without a demonstrated aneurysm. RAD/L/S Spine Min 4 Views IMPRESSION: Normal x-ray examination of the lumbar spine. Electronically Signed: Oscar Steele MD at 16:09 EDT , Service support ,
== END ==
PROVIDERS: PCP Family Medicine; Referring Provider Family Medicine; Visit Provider Family Medicine
DX: M54.9 Dorsalgia, unspecified (principal)
CPT/HCPCS: 72110

== ENCOUNTER → 2020-09-10 | Outpatient (CLI) | payer BC, SELFPAY | END | disposition home or self-care (01) | LOC: LABSPEC 14:21 | PROVIDERS: PCP Family Medicine; Referring Provider Family Medicine; Visit Provider Family Medicine | DX: R05 Cough (principal) | CPT/HCPCS: 87635; U0003 ==

== ENCOUNTER → 2020-09-12 | Outpatient (CLI) | payer BC, SELFPAY | END | disposition home or self-care (01) | PROVIDERS: PCP Family Medicine; Visit Provider Family Medicine | DX: N39.0 Urinary tract infection, site not specified (principal) | CPT/HCPCS: 87086 ==

== ENCOUNTER → 2021-02-11 16:14 | Outpatient (CLI) | payer BC, SELFPAY ==
[2021-02-11 16:16] LABS: Bacteria 0 SEEN /hpf (None Seen); Red Blood Cells-Urine 0 SEEN /hpf (0-5); Squamous Epithelial Cells - UA 0 SEEN /hpf (0-5); White Blood Cells 0 SEEN /hpf (0-5)
[2021-02-11 17:52] LABS: Absolute Lymphocyte Count 2.32 X10^3/uL (0.83-4.51); Absolute Neutrophil Count 4.7 X10^3/uL (2.0-7.7); Basophil# 0.07 X10^3/uL; Basophil% 0.9 % (0-1); Eosinophil# 0.14 X10^3/uL; Eosinophils% 1.7 % (0-5); Hematocrit 44.1 % (40-54); Hemoglobin 14.6 g/dL (13.0-16.5); Lymphocyte # 2.32 X10^3/ul (4.0); Lymphocyte % 28.5 % (19-41); Mean Corp Hgb Conc 33.1 g/dL (32-36); Mean Corpuscular Volume 87.7 fL (80-94); Mean Platelet Vol. 11.1 fl (6.2-12.0); Monocyte# 0.89 X10^3/uL; Monocyte% 10.9 % (0-10); NRBC Flagged by Analyzer 0 % (0-5); Neutrophil % 57.8 % (47-70); Platelet Count 385 K/mm3 (150-450); RBC Distribution Width CV 13.2 % (11.6-14.6); RBC Distribution Width SD 42.5 fl (35.1-43.9); Red Blood Count 5.03 M/mm3 (4.6-6.2); White Blood Count 8.1 K/mm3 (4.4-11.0)
[2021-02-11 17:58] LABS: Color, Urine Yellow (Yellow); Glucose, Dipstick Normal (Normal); Ketone-Dipstick Negative (Negative); Leukocyte Esterase-Dipstick Negative /ul (Negative); Nitrite-Dipstick Negative (Negative); Occult Blood-Urine Negative /ul (Negative); Protein-Dipstick Negative (Negative); Urine Bilirubin Dipstick Negative (Negative); Urine Clarity Clear (Clear); Urine Urobilinogen Normal (Normal)
[2021-02-11 18:10] LABS: Mucous, Urine 1+ /hpf (<or=2+)
[2021-02-11 18:31] LABS: ALB/GLOB Ratio 1.1 RATIO (0.9-2.4); AST(SGOT) 16 U/L (15-37); Alanine Aminotransfer ALT/SGPT 34 U/L (16-61); Alkaline Phosphatase 110 U/L (45-117); Anion Gap 6 (5-15); BUN 15 mg/dL (7-18); BUN/Creat Ratio 11.5 RATIO (10-20); Calcium,Total 8.4 mg/dL (8.5-10.1); Chloride 107 mmol/L (98-107); Cholesterol 204 mg/dL (200); EST Glomerular Filtration Rate 61 mL/min (>60); Est Glom Filt Rate - Afr Amer 74 mL/min (>60); Globulin 3.8 g/dL (2.2-4.2); Glucose 98 mg/dL (74-106); High Density Lipoprotein 32 mg/dL; PSA,Total- Diagnostic 6.42 ng/mL (0.0-4.0); Potassium 3.8 mmol/L (3.5-5.1); Protein, Total 7.8 g/dL (6.4-8.2); Sodium Level 139 mmol/L (136-145); Thyroid Stim Hormone (TSH) 1.83 uIU/mL (0.358-3.74); Triglycerides 301 mg/dL; Very Low Density Lipoprotein 60 mg/dL (5-40)
[2021-02-11 18:40] LABS: Hemoglobin A1c 5.5 % (3.8-5.6)
== END ==
PROVIDERS: PCP Family Medicine; Referring Provider Family Medicine; Visit Provider Family Medicine
DX: I10 Essential (primary) hypertension (principal); R73.02 Impaired glucose tolerance (oral); R97.20 Elevated prostate specific antigen [PSA]
CPT/HCPCS: 36415; 80053; 80061; 81001; 83036; 84153; 84443; 85025

== ENCOUNTER → 2021-02-16 12:31 | Outpatient (CLI) | payer BC, SELFPAY ==
--- NOTE | 2021-02-16 12:34 | ECHOD_ITS ---
Reason For Study: THORACIC AORTA ANEURYSM Procedure This was a 2D Doppler, Color Flow transthoracic echocardiogram. Exam performed in department. Left Ventricle Normal LV size. Left ventricular systolic function is normal. The estimated ejection fraction is 55 %. Stage 1 diastolic dysfunction. No regional wall motion abnormalities noted. Right Ventricle Normal RV size. Normal systolic function. Atria Normal left atrium. Normal right atrium. Mitral Valve Normal mitral valve. Tricuspid Valve Normal tricuspid valve. Aortic Valve Normal aortic valve. Trisinus/trileaflet aortic valve. Pulmonic Valve Normal pulmonic valve. Great Vessels Mild to moderately dilated aortic root. Pericardium/Pleural No pericardial effusion. MMode/2D Measurements & Calculations LVIDd: 4.9 cm IVSd: 1.0 cm Ao root diam: 4.1 cm LVIDs: 2.9 cm LVPWd: 0.99 cm RVDd: 3.3 cm FS: 40.2 % LAV(MOD-bp): 45.0 ml LA A4 area: 14.8 cm2 LA dimension(2D): 3.9 cm LAV(MOD-bp) Indexed: 21.5 ml/m2 LAV(MOD-sp2): 50.7 ml LAV(MOD-sp4): 41.4 ml RA A4 area: 11.5 cm2 Time Measurements MV dec time: 0.20 sec Doppler Measurements & Calculations MV E max keaton: 57.4 cm/sec Lat Peak E' Keaton: 10.6 cm/sec Med Peak E' Keaton: 7.7 cm/sec MV A max keaton: 70.0 cm/sec E/E' lat: 5.4 E/E' med: 7.4 MV E/A: 0.82 Ao V2 max: 131.2 cm/sec LV V1 max: 90.4 cm/sec PA V2 max: 108.1 cm/sec Ao max P.9 mmHg LV V1 max P.3 mmHg Interpretation Summary Normal LV size. Left ventricular systolic function is normal. The estimated ejection fraction is 55 %. Stage 1 diastolic dysfunction. Structurally normal valves. Ordering Physician: Mikel Pino Referring Physician: Mikel Pino Performed By: Ángela Louise RDCS, RVT
== END ==
PROVIDERS: PCP Family Medicine; Referring Provider Family Medicine; Visit Provider Family Medicine
DX: I71.2 Thoracic aortic aneurysm, without rupture (principal)
CPT/HCPCS: 93306

== ENCOUNTER → 2021-03-20 16:48 | Outpatient (CLI) | payer BC, SELFPAY ==
[2021-03-20 11:45] LABS: Hematocrit 45.2 % (40-54); Hemoglobin 14.5 g/dL (13.0-16.5); Mean Corp Hgb Conc 32.1 g/dL (32-36); Mean Corpuscular Hgb 28.4 pg (27.0-32.0); Mean Corpuscular Volume 88.5 fL (80-94); Mean Platelet Vol. 10.4 fl (6.2-12.0); Platelet Count 361 K/mm3 (150-450); RBC Distribution Width CV 13.5 % (11.6-14.6); Red Blood Count 5.11 M/mm3 (4.6-6.2); White Blood Count 7.1 K/mm3 (4.4-11.0)
[2021-03-20 12:21] LABS: Anion Gap 3 (5-15); BUN 16 mg/dL (7-18); BUN/Creat Ratio 12.3 RATIO (10-20); Calcium,Total 8.8 mg/dL (8.5-10.1); Chloride 108 mmol/L (98-107); EST Glomerular Filtration Rate 61 mL/min (>60); Est Glom Filt Rate - Afr Amer 74 mL/min (>60); Glucose 96 mg/dL (74-106); Sodium Level 139 mmol/L (136-145)
== END ==
PROVIDERS: PCP Family Medicine; Referring Provider Urology; Visit Provider Urology
DX: Z01.812 Encounter for preprocedural laboratory examination (principal)
CPT/HCPCS: 36415; 80048; 85027; 87635; C9803; U0002

== ENCOUNTER → 2021-10-13 10:30 | Outpatient (CLI) | payer OTHER, SELFPAY ==
[2021-10-13 11:13] LABS: Absolute Lymphocyte Count 2.05 X10^3/uL (0.83-4.51); Absolute Neutrophil Count 5.1 X10^3/uL (2.0-7.7); Basophil# 0.04 X10^3/uL; Basophil% 0.5 % (0-1); Eosinophil# 0.08 X10^3/uL; Hematocrit 41.4 % (40-54); Lymphocyte # 2.05 X10^3/ul (0.83-4.51); Lymphocyte % 25.5 % (19-41); Mean Corp Hgb Conc 33.8 g/dL (32-36); Mean Corpuscular Hgb 29.3 pg (27.0-32.0); Mean Corpuscular Volume 86.6 fL (80-94); Mean Platelet Vol. 9.8 fl (6.2-12.0); Monocyte# 0.78 X10^3/uL; Monocyte% 9.7 % (0-10); NRBC Flagged by Analyzer 0 % (0-5); Neutrophil # 5.06 X10^3/uL (2.7-7.7); Neutrophil % 63.1 % (47-70); Platelet Count 355 K/mm3 (150-450); RBC Distribution Width CV 13.7 % (11.6-14.6); RBC Distribution Width SD 43.3 fl (35.1-43.9); Red Blood Count 4.78 M/mm3 (4.6-6.2)
[2021-10-13 11:47] LABS: Hemoglobin A1c 5.6 % (3.8-5.6)
[2021-10-13 12:01] LABS: ALB/GLOB Ratio 0.9 RATIO (0.9-2.4); AST(SGOT) 18 U/L (15-37); Alanine Aminotransfer ALT/SGPT 31 U/L (16-61); Albumin, Serum 3.7 g/dL (3.2-5.0); Alkaline Phosphatase 103 U/L (45-117); Anion Gap 9 (5-15); BUN 21 mg/dL (7-18); BUN/Creat Ratio 16.2 RATIO (10-20); Calcium,Total 8.6 mg/dL (8.5-10.1); Chloride 107 mmol/L (98-107); Cholesterol 208 mg/dL (200); EST Glomerular Filtration Rate 61 mL/min (>60); Est Glom Filt Rate - Afr Amer 74 mL/min (>60); Glucose 95 mg/dL (74-106); High Density Lipoprotein 38 mg/dL; PSA,Total - Annual Screen 4.19 ng/mL (0.00-4.00); Potassium 4.1 mmol/L (3.5-5.1); Protein, Total 7.7 g/dL (6.4-8.2); Sodium Level 141 mmol/L (136-145); Triglycerides 156 mg/dL; Very Low Density Lipoprotein 31 mg/dL (5-40)
== END ==
PROVIDERS: PCP Family Medicine; Visit Provider Urology
DX: R97.20 Elevated prostate specific antigen [PSA] (principal); R73.02 Impaired glucose tolerance (oral); I10 Essential (primary) hypertension
CPT/HCPCS: 36415; 80053; 80061; 83036; 84153; 85025; G0103

== ENCOUNTER 2021-12-07 18:07 | Outpatient (CLI) | payer OTHER, SELFPAY | END 2021-12-07 23:59 | disposition short-term general hospital (02) | PROVIDERS: PCP Family Medicine; Visit Provider Nurse Practitioner Family | DX: U07.1 COVID-19 (principal) | CPT/HCPCS: 87635; U0003; U0005 ==

== ENCOUNTER 2021-12-10 12:14 | Outpatient (CLI) | payer OTHER, SELFPAY ==
[2021-12-10 12:21] VITALS: BP 133/98; PULSE 107; RESP 16; TEMP 36.6; O2SAT 100; BMI 29.4
[2021-12-10] MEDS: 0.9% Saline Lock 10 ML Syringe IV (12:25)
[2021-12-10 13:00] VITALS: BP 133/85; PULSE 102; RESP 16; TEMP 36.8; O2SAT 97
[2021-12-10 13:48] VITALS: BP 116/80; PULSE 94; RESP 16; TEMP 36.9; O2SAT 99
== END 2021-12-10 23:59 | disposition home or self-care (01) ==
LOC: MS3OUT 12:14 → MS3 12:15
PROVIDERS: PCP Family Medicine; Referring Provider Nurse Practitioner Adult Health; Visit Provider Nurse Practitioner Adult Health
DX: Z23 Encounter for immunization (principal); U07.1 COVID-19
CPT/HCPCS: J7050; M0245; Q0245; A4216

== ENCOUNTER 2021-12-22 09:27 | Outpatient (CLI) | payer OTHER, SELFPAY ==
[2021-12-22 09:33] LABS: Bacteria 0 SEEN /hpf (None Seen); Mucous, Urine 0 SEEN /hpf (<or=2+); Red Blood Cells-Urine 0 SEEN /hpf (0-5); Squamous Epithelial Cells - UA 0 SEEN /hpf (0-5)
[2021-12-22 10:03] LABS: Absolute Lymphocyte Count 1.96 X10^3/uL (0.83-4.51); Absolute Neutrophil Count 4.5 X10^3/uL (2.0-7.7); Basophil# 0.04 X10^3/uL; Basophil% 0.5 % (0-1); Eosinophil# 0.11 X10^3/uL; Eosinophils% 1.5 % (0-5); Lymphocyte # 1.96 X10^3/ul (0.83-4.51); Lymphocyte % 26.8 % (19-41); Mean Corp Hgb Conc 33.3 g/dL (32-36); Mean Corpuscular Hgb 28.7 pg (27.0-32.0); Mean Corpuscular Volume 86.1 fL (80-94); Mean Platelet Vol. 10.1 fl (6.2-12.0); Monocyte# 0.72 X10^3/uL; Monocyte% 9.8 % (0-10); NRBC Flagged by Analyzer 0 % (0-5); Neutrophil # 4.47 X10^3/uL (2.7-7.7); Neutrophil % 61.1 % (47-70); Platelet Count 357 K/mm3 (150-450); RBC Distribution Width CV 13.2 % (11.6-14.6); RBC Distribution Width SD 41.7 fl (35.1-43.9); Red Blood Count 4.53 M/mm3 (4.6-6.2); White Blood Count 7.3 K/mm3 (4.4-11.0)
[2021-12-22 10:06] LABS: Color, Urine Yellow (Yellow); Glucose, Dipstick Normal (Normal); Ketone-Dipstick Negative (Negative); Leukocyte Esterase-Dipstick Negative /ul (Negative); Nitrite-Dipstick Negative (Negative); Occult Blood-Urine Negative /ul (Negative); Protein-Dipstick Negative (Negative); Urine Bilirubin Dipstick Negative (Negative); Urine Clarity Clear (Clear); Urine Urobilinogen Normal (Normal)
[2021-12-22 10:23] LABS: White Blood Cells 0-5 SEEN /hpf (0-5)
[2021-12-22 10:35] LABS: AST(SGOT) 14 U/L (15-37); Alanine Aminotransfer ALT/SGPT 32 U/L (16-61); Albumin, Serum 3.7 g/dL (3.2-5.0); Alkaline Phosphatase 95 U/L (45-117); Anion Gap 5 (5-15); BUN 17 mg/dL (7-18); BUN/Creat Ratio 14.3 RATIO (10-20); Calcium,Total 8.4 mg/dL (8.5-10.1); Chloride 109 mmol/L (98-107); Cholesterol 186 mg/dL (200); Creatinine, Serum 1.19 mg/dL (0.70-1.30); EST Glomerular Filtration Rate 68 mL/min (>60); Est Glom Filt Rate - Afr Amer 82 mL/min (>60); Globulin 3.6 g/dL (2.2-4.2); Glucose 100 mg/dL (74-106); High Density Lipoprotein 34 mg/dL; Protein, Total 7.3 g/dL (6.4-8.2); Sodium Level 139 mmol/L (136-145); Triglycerides 138 mg/dL; Very Low Density Lipoprotein 28 mg/dL (5-40)
[2021-12-22 14:26] LABS: Hemoglobin A1c 5.7 % (3.8-5.6)
== END 2021-12-22 23:59 | disposition short-term general hospital (02) ==
LOC: MTLAB 09:28
PROVIDERS: PCP Family Medicine; Referring Provider Family Medicine; Visit Provider Family Medicine
DX: R73.02 Impaired glucose tolerance (oral) (principal); I10 Essential (primary) hypertension
CPT/HCPCS: 36415; 80053; 80061; 81001; 83036; 85025

== ENCOUNTER 2022-03-04 14:37 | Outpatient (CLI) | payer OTHER, SELFPAY ==
--- NOTE | 2022-03-04 14:56 | ECHOD_ITS ---
Reason For Study: THORACIC AA Procedure This was a 2D Doppler, Color Flow transthoracic echocardiogram. Exam performed in department. Left Ventricle Normal LV size. Left ventricular systolic function is normal. The estimated ejection fraction is 60 %. Stage 1 diastolic dysfunction. No regional wall motion abnormalities noted. Right Ventricle Normal RV size. Normal systolic function. Atria Normal left atrium. Normal right atrium. Mitral Valve Normal mitral valve. Tricuspid Valve Normal tricuspid valve. Mild (1+) tricuspid valve insufficiency. Pulmonary artery systolic pressure is 30 mmHg. Aortic Valve Normal aortic valve. Trisinus/trileaflet aortic valve. Pulmonic Valve Normal pulmonic valve. Great Vessels Normal aortic root. The pulmonary artery is normal size. Normal inferior vena cava. Pericardium/Pleural No pericardial effusion. MMode/2D Measurements & Calculations LVIDd: 4.3 cm IVSd: 0.85 cm Ao root diam: 3.4 cm LVIDs: 3.0 cm LVPWd: 0.82 cm RVDd: 3.1 cm FS: 29.7 % LAV(MOD-bp): 35.8 ml LVAd ap4: 30.7 cm2 SV(MOD-sp4): 57.8 ml LAV(MOD-bp) Indexed: 17.0 ml/m2 LVLd ap4: 8.6 cm LAV(MOD-sp2): 34.0 ml EDV(MOD-sp4): 90.6 ml LAV(MOD-sp4): 35.7 ml EDV(sp4-el): 92.9 ml LVAs ap4: 16.0 cm2 LVLs ap4: 6.5 cm ESV(MOD-sp4): 32.8 ml ESV(sp4-el): 33.0 ml EF(MOD-sp4): 63.8 % EF(sp4-el): 64.5 % SV(sp4-el): 59.9 ml LA A4 area: 14.9 cm2 LA dimension(2D): 3.4 cm RA A4 area: 12.2 cm2 Time Measurements MV dec time: 0.22 sec Doppler Measurements & Calculations MV E max keaton: 77.1 cm/sec Lat Peak E' Keaton: 13.0 cm/sec Med Peak E' Keaton: 10.7 cm/sec MV A max keaton: 90.3 cm/sec E/E' lat: 5.9 E/E' med: 7.2 MV E/A: 0.85 Ao V2 max: 132.8 cm/sec LV V1 max: 119.2 cm/sec PA V2 max: 105.1 cm/sec Ao max P.1 mmHg LV V1 max P.7 mmHg TR max keaton: 257.5 cm/sec TR max P.5 mmHg ECHO/Echo Complete Interpretation Summary Normal LV size. Left ventricular systolic function is normal. The estimated ejection fraction is 60 %. Stage 1 diastolic dysfunction. Pulmonary artery systolic pressure is 30 mmHg. Normal aortic root. Ordering Physician: Mikel Pino Referring Physician: Mikel Pino Performed By: Shawna Cortez RDCS
== END 2022-03-04 23:59 | disposition home or self-care (01) ==
PROVIDERS: PCP Family Medicine; Referring Provider Family Medicine; Visit Provider Family Medicine
DX: I71.2 Thoracic aortic aneurysm, without rupture (principal)
CPT/HCPCS: 93306

== ENCOUNTER → 2022-08-04 | Outpatient (CLI) | payer OTHER, SELFPAY ==
[2022-08-04 16:20] LABS: Mucous, Urine 0 SEEN /hpf (<or=2+); Red Blood Cells-Urine 0 SEEN /hpf (0-5); Squamous Epithelial Cells - UA 0 SEEN /hpf (0-5)
[2022-08-04 17:49] LABS: Color, Urine Yellow (Yellow); Glucose, Dipstick Normal (Normal); Ketone-Dipstick Negative (Negative); Leukocyte Esterase-Dipstick Negative /ul (Negative); Nitrite-Dipstick Negative (Negative); Occult Blood-Urine Negative /ul (Negative); Protein-Dipstick Negative (Negative); Urine Bilirubin Dipstick Negative (Negative); Urine Clarity Clear (Clear); Urine Urobilinogen Normal (Normal)
[2022-08-04 17:52] LABS: Absolute Lymphocyte Count 2.14 X10^3/uL (0.83-4.51); Absolute Neutrophil Count 4.4 X10^3/uL (2.0-7.7); Basophil# 0.04 X10^3/uL; Basophil% 0.5 % (0-1); Eosinophils% 1.3 % (0-5); Hematocrit 41.1 % (40-54); Hemoglobin 13.5 g/dL (13.0-16.5); Lymphocyte # 2.14 X10^3/ul (0.83-4.51); Lymphocyte % 28.3 % (19-41); Mean Corp Hgb Conc 32.8 g/dL (32-36); Mean Corpuscular Hgb 29.5 pg (27.0-32.0); Mean Corpuscular Volume 89.7 fL (80-94); Monocyte# 0.85 X10^3/uL; Monocyte% 11.2 % (0-10); NRBC Flagged by Analyzer 0 % (0-5); Neutrophil # 4.41 X10^3/uL (2.7-7.7); Neutrophil % 58.4 % (47-70); Platelet Count 343 K/mm3 (150-450); RBC Distribution Width CV 13.2 % (11.6-14.6); RBC Distribution Width SD 43.3 fl (35.1-43.9); Red Blood Count 4.58 M/mm3 (4.6-6.2); White Blood Count 7.6 K/mm3 (4.4-11.0)
[2022-08-04 19:02] LABS: ALB/GLOB Ratio 1.1 RATIO (0.9-2.4); AST(SGOT) 17 U/L (15-37); Alanine Aminotransfer ALT/SGPT 30 U/L (16-61); Albumin, Serum 3.8 g/dL (3.2-5.0); Alkaline Phosphatase 97 U/L (45-117); Anion Gap 7 (5-15); BUN 20 mg/dL (7-18); BUN/Creat Ratio 15.5 RATIO (10-20); Calcium,Total 8.4 mg/dL (8.5-10.1); Chloride 106 mmol/L (98-107); Cholesterol 181 mg/dL (200); Creatinine, Serum 1.29 mg/dL (0.70-1.30); EST Glomerular Filtration Rate 61 mL/min (>60); Est Glom Filt Rate - Afr Amer 74 mL/min (>60); Globulin 3.6 g/dL (2.2-4.2); Glucose 91 mg/dL (74-106); High Density Lipoprotein 31 mg/dL; PSA,Total- Diagnostic 3.76 ng/mL (0.0-4.0); Potassium 4.3 mmol/L (3.5-5.1); Protein, Total 7.4 g/dL (6.4-8.2); Sodium Level 139 mmol/L (136-145); Triglycerides 240 mg/dL; Very Low Density Lipoprotein 48 mg/dL (5-40)
[2022-08-04 19:21] LABS: Hemoglobin A1c 5.7 % (3.8-5.6)
[2022-08-04 19:58] LABS: Bacteria RARE /hpf (None Seen); White Blood Cells 0-5 SEEN /hpf (0-5)
== END | disposition home or self-care (01) ==
LOC: MFPLAB 16:19
PROVIDERS: PCP Family Medicine; Referring Provider Family Medicine; Visit Provider Family Medicine
DX: I10 Essential (primary) hypertension (principal); R97.20 Elevated prostate specific antigen [PSA]; R73.02 Impaired glucose tolerance (oral)
CPT/HCPCS: 36415; 80053; 80061; 81001; 83036; 84153; 85025

== ENCOUNTER → 2023-05-13 | Outpatient (CLI) | payer OTHER, SELFPAY ==
[2023-05-13 16:02] LABS: ALB/GLOB Ratio 1.3 RATIO (0.9-2.4); AST(SGOT) 19 U/L (15-37); Alanine Aminotransfer ALT/SGPT 32 U/L (16-61); Albumin, Serum 3.9 g/dL (3.2-5.0); Alkaline Phosphatase 103 U/L (45-117); Anion Gap 8 (5-15); BUN 15 mg/dL (7-18); BUN/Creat Ratio 11.4 RATIO (10-20); Calcium,Total 8.9 mg/dL (8.5-10.1); Chloride 108 mmol/L (98-107); Creatinine, Serum 1.32 mg/dL (0.70-1.30); EST Glomerular Filtration Rate 60 mL/min (>60); Est Glom Filt Rate - Afr Amer 72 mL/min (>60); Glucose 84 mg/dL (74-106); Potassium 4.4 mmol/L (3.5-5.1); Protein, Total 6.9 g/dL (6.4-8.2); Sodium Level 141 mmol/L (136-145)
== END | disposition home or self-care (01) ==
LOC: MFPLAB 14:01
PROVIDERS: PCP Family Medicine; Visit Provider Nurse Practitioner Family
DX: I10 Essential (primary) hypertension (principal)
CPT/HCPCS: 36415; 80053

== ENCOUNTER → 2023-08-11 | Outpatient (CLI) | payer OTHER, SELFPAY ==
[2023-08-11 15:49] LABS: Bacteria 0 SEEN /hpf (None Seen); Mucous, Urine 0 SEEN /hpf (<or=2+); Red Blood Cells-Urine 0 SEEN /hpf (0-5); Squamous Epithelial Cells - UA 0 SEEN /hpf (0-5); White Blood Cells 0 SEEN /hpf (0-5)
[2023-08-11 17:52] LABS: Absolute Lymphocyte Count 2.05 X10^3/uL (0.83-4.51); Basophil# 0.05 X10^3/uL; Basophil% 0.6 % (0-1); Eosinophil# 0.13 X10^3/uL; Eosinophils% 1.6 % (0-5); Hematocrit 43.3 % (40-54); Hemoglobin 13.9 g/dL (13.0-16.5); Lymphocyte # 2.05 X10^3/ul (0.83-4.51); Lymphocyte % 24.8 % (19-41); Mean Corp Hgb Conc 32.1 g/dL (32-36); Mean Corpuscular Hgb 28.5 pg (27.0-32.0); Mean Corpuscular Volume 88.7 fL (80-94); Mean Platelet Vol. 10.8 fl (6.2-12.0); Monocyte# 1.01 X10^3/uL; Monocyte% 12.2 % (0-10); NRBC Flagged by Analyzer 0 % (0-5); Neutrophil # 5.01 X10^3/uL (2.7-7.7); Neutrophil % 60.7 % (47-70); Platelet Count 339 K/mm3 (150-450); RBC Distribution Width CV 13.6 % (11.6-14.6); RBC Distribution Width SD 44.1 fl (35.1-43.9); Red Blood Count 4.88 M/mm3 (4.6-6.2); White Blood Count 8.3 K/mm3 (4.4-11.0)
[2023-08-11 18:23] LABS: Color, Urine Yellow (Yellow); Glucose, Dipstick Normal (Normal); Ketone-Dipstick Negative (Negative); Leukocyte Esterase-Dipstick Negative /ul (Negative); Nitrite-Dipstick Negative (Negative); Occult Blood-Urine Negative /ul (Negative); Protein-Dipstick Negative (Negative); Specific Gravity, Urine 1.015 (1.002-1.030); Urine Bilirubin Dipstick Negative (Negative); Urine Clarity Clear (Clear); Urine Urobilinogen 1 mg/dl (Normal); Urine pH 6.5 (5.0 - 8.0)
[2023-08-11 18:36] LABS: ALB/GLOB Ratio 1.1 RATIO (0.9-2.4); AST(SGOT) 16 U/L (15-37); Alanine Aminotransfer ALT/SGPT 28 U/L (16-61); Albumin, Serum 3.9 g/dL (3.2-5.0); Alkaline Phosphatase 104 U/L (45-117); Anion Gap 6 (5-15); BUN 19 mg/dL (7-18); BUN/Creat Ratio 13.3 RATIO (10-20); Calcium,Total 8.7 mg/dL (8.5-10.1); Chloride 111 mmol/L (98-107); Cholesterol 196 mg/dL (200); Creatinine, Serum 1.43 mg/dL (0.70-1.30); EST Glomerular Filtration Rate 54 mL/min (>60); Est Glom Filt Rate - Afr Amer 66 mL/min (>60); Globulin 3.7 g/dL (2.2-4.2); Glucose 123 mg/dL (74-106); High Density Lipoprotein 33 mg/dL; Protein, Total 7.6 g/dL (6.4-8.2); Sodium Level 141 mmol/L (136-145); Thyroid Stim Hormone (TSH) 1.47 uIU/mL (0.358-3.74); Triglycerides 277 mg/dL; Very Low Density Lipoprotein 55 mg/dL (5-40)
[2023-08-11 18:48] LABS: Hemoglobin A1c 5.6 % (3.8-5.6)
[2023-08-13 12:09] LABS: PSA, Free 0.95 ng/mL; PSA, Free % 22.6 % (.)
== END | disposition home or self-care (01) ==
PROVIDERS: PCP Family Medicine; Visit Provider Family Medicine
DX: I10 Essential (primary) hypertension (principal); R97.20 Elevated prostate specific antigen [PSA]; R73.02 Impaired glucose tolerance (oral)
CPT/HCPCS: 36415; 80053; 80061; 81001; 83036; 84153; 84154; 84443; 85025

== ENCOUNTER → 2023-11-29 | Outpatient (CLI) | payer OTHER, SELFPAY ==
--- NOTE | 2023-11-29 14:39 | ECHOD_ITS ---
Reason For Study: Thoracic aortic aneurysm Procedure This was a 2D Doppler, Color Flow transthoracic echocardiogram. Exam performed in department. Left Ventricle Mild concentric left ventricular hypertrophy. Normal LV size. The left ventricular ejection fraction is 65 %. Stage 1 diastolic dysfunction. Right Ventricle Normal right ventricle. Atria The left and right atria are normal. Mitral Valve The mitral valve is structurally normal. No prolapse or stenosis seen. Tricuspid Valve Trivial tricuspid valve insufficiency. Normal pulmonary artery pressure. Aortic Valve Trisinus/trileaflet aortic valve. Pulmonic Valve The pulmonic valve is not well visualized. Great Vessels Mild to moderately dilated aortic root. Pericardium/Pleural No pericardial effusion. MMode/2D Measurements & Calculations LVIDd: 3.9 cm IVSd: 1.2 cm Ao root diam: 4.2 cm LVIDs: 2.2 cm LVPWd: 1.1 cm RVDd: 3.2 cm FS: 43.3 % LAV(MOD-bp): 24.0 ml LVAd ap4: 28.6 cm2 LVAd ap2: 24.6 cm2 LAV(MOD-bp) Indexed: 11.6 ml/m2 LVLd ap4: 8.8 cm LVLd ap2: 8.5 cm LAV(MOD-sp2): 23.8 ml EDV(MOD-sp4): 77.4 ml EDV(MOD-sp2): 58.2 ml LAV(MOD-sp4): 25.3 ml EDV(sp4-el): 78.5 ml EDV(sp2-el): 60.4 ml LVAs ap4: 15.3 cm2 LVAs ap2: 14.6 cm2 LVLs ap4: 7.4 cm LVLs ap2: 7.7 cm ESV(MOD-sp4): 27.3 ml ESV(MOD-sp2): 24.4 ml ESV(sp4-el): 26.8 ml ESV(sp2-el): 23.6 ml EF(MOD-sp4): 64.8 % EF(MOD-sp2): 58.1 % EF(sp4-el): 65.8 % SV(MOD-sp4): 50.1 ml SV(MOD-sp2): 33.8 ml SV(sp4-el): 51.7 ml LA dimension(2D): 3.5 cm LA A4 area: 11.2 cm2 RA A4 area: 9.3 cm2 Time Measurements MV dec time: 0.20 sec Doppler Measurements & Calculations MV E max keaton: 60.2 cm/sec Lat Peak E' Keaton: 10.2 cm/sec Med Peak E' Keaton: 8.5 cm/sec MV A max keaton: 82.2 cm/sec E/E' lat: 5.9 E/E' med: 7.1 MV E/A: 0.73 MV dec slope: 302.6 cm/sec2 Ao V2 max: 131.7 cm/sec LV V1 max: 92.1 cm/sec Ao max P.9 mmHg LV V1 max P.4 mmHg PA V2 max: 108.6 cm/sec TR max keaton: 237.1 cm/sec PA V2 mean: 72.5 cm/sec TR max P.5 mmHg ECHO/Echo Complete Interpretation Summary Mild concentric left ventricular hypertrophy. The left ventricular ejection fraction is 65 %. Stage 1 diastolic dysfunction. Mild to moderately dilated aortic root. Ordering Physician: Mikel Pino Referring Physician: Mikel Pino Performed By: Abbey Villavicencio RDCS
== END | disposition home or self-care (01) ==
PROVIDERS: PCP Family Medicine; Referring Provider Family Medicine; Visit Provider Family Medicine
DX: I71.20 Thoracic aortic aneurysm, without rupture, unspecified (principal); I51.7 Cardiomegaly
CPT/HCPCS: 93306

== ENCOUNTER → 2024-08-14 | Outpatient (CLI) | payer OTHER, SELFPAY ==
[2024-08-14 17:01] LABS: Bacteria 0 SEEN /hpf (None Seen); Mucous, Urine 0 SEEN /hpf (<or=2+); Red Blood Cells-Urine 0 SEEN /hpf (0-5); Squamous Epithelial Cells - UA 0 SEEN /hpf (0-5); White Blood Cells 0 SEEN /hpf (0-5)
[2024-08-14 17:56] LABS: Absolute Lymphocyte Count 2.47 X10^3/uL (0.83-4.51); Absolute Neutrophil Count 5.4 X10^3/uL (2.0-7.7); Basophil# 0.06 X10^3/uL; Basophil% 0.7 % (0-1); Eosinophil# 0.13 X10^3/uL; Eosinophils% 1.4 % (0-5); Hematocrit 41.5 % (40-54); Hemoglobin 13.5 g/dL (13.0-16.5); Lymphocyte # 2.47 X10^3/ul (0.83-4.51); Lymphocyte % 27.4 % (19-41); Mean Corp Hgb Conc 32.5 g/dL (32-36); Mean Corpuscular Hgb 28.4 pg (27.0-32.0); Mean Corpuscular Volume 87.2 fL (80-94); Mean Platelet Vol. 10.7 fl (6.2-12.0); Monocyte# 0.97 X10^3/uL; Monocyte% 10.8 % (0-10); NRBC Flagged by Analyzer 0 % (0-5); Neutrophil # 5.35 X10^3/uL (2.7-7.7); Neutrophil % 59.4 % (47-70); Platelet Count 330 K/mm3 (150-450); RBC Distribution Width CV 13.4 % (11.6-14.6); RBC Distribution Width SD 42.9 fl (35.1-43.9); Red Blood Count 4.76 M/mm3 (4.6-6.2)
[2024-08-14 18:21] LABS: ALB/GLOB Ratio 1.1 RATIO (0.9-2.4); AST(SGOT) 18 U/L (15-37); Alanine Aminotransfer ALT/SGPT 34 U/L (16-61); Albumin, Serum 3.8 g/dL (3.2-5.0); Alkaline Phosphatase 102 U/L (45-117); Anion Gap 8 (5-15); BUN 24 mg/dL (7-18); BUN/Creat Ratio 17.5 RATIO (10-20); Calcium,Total 8.6 mg/dL (8.5-10.1); Chloride 108 mmol/L (98-107); Cholesterol 195 mg/dL (200); Creatinine, Serum 1.37 mg/dL (0.70-1.30); EST Glomerular Filtration Rate 57 mL/min (>60); Est Glom Filt Rate - Afr Amer 69 mL/min (>60); Globulin 3.6 g/dL (2.2-4.2); Glucose 97 mg/dL (74-106); High Density Lipoprotein 36 mg/dL; Magnesium 2.1 mg/dL (1.6-2.6); Protein, Total 7.4 g/dL (6.4-8.2); Sodium Level 140 mmol/L (136-145); Triglycerides 267 mg/dL; Very Low Density Lipoprotein 53 mg/dL (5-40)
[2024-08-14 18:27] LABS: Hemoglobin A1c 5.7 % (3.8-5.6)
[2024-08-14 18:32] LABS: Color, Urine Yellow (Yellow); Glucose, Dipstick Normal (Normal); Ketone-Dipstick Negative (Negative); Leukocyte Esterase-Dipstick Negative /ul (Negative); Nitrite-Dipstick Negative (Negative); Occult Blood-Urine Negative /ul (Negative); Protein-Dipstick 15 mg/dl (Negative); Specific Gravity, Urine 1.025 (1.002-1.030); Urine Bilirubin Dipstick Negative (Negative); Urine Clarity Clear (Clear); Urine Urobilinogen Normal (Normal)
[2024-08-16 13:09] LABS: PSA, Free 0.97 ng/mL; PSA, Free % 22.6 % (.)
== END | disposition home or self-care (01) ==
LOC: MFPLAB 16:51
PROVIDERS: PCP Family Medicine; Visit Provider Family Medicine
DX: I10 Essential (primary) hypertension (principal); R73.02 Impaired glucose tolerance (oral); R97.20 Elevated prostate specific antigen [PSA]
CPT/HCPCS: 36415; 80053; 80061; 81001; 83036; 83735; 84153; 84154; 84443; 85025

== ENCOUNTER → 2025-03-25 | Outpatient (CLI) | payer BC, SELFPAY ==
[2025-03-25 08:06] LABS: Bacteria 0 SEEN /hpf (None Seen); Mucous, Urine 0 SEEN /hpf (<or=2+); Red Blood Cells-Urine 0 SEEN /hpf (0-5); Squamous Epithelial Cells - UA 0 SEEN /hpf (0-5); White Blood Cells 0 SEEN /hpf (0-5)
[2025-03-25 10:55] LABS: Absolute Lymphocyte Count 1.93 X10^3/uL (0.83-4.51); Absolute Neutrophil Count 4.5 X10^3/uL (2.0-7.7); Basophil# 0.05 X10^3/uL; Basophil% 0.7 % (0-1); Color, Urine Yellow (Yellow); Eosinophil# 0.12 X10^3/uL; Eosinophils% 1.6 % (0-5); Glucose, Dipstick Normal (Normal); Hemoglobin 13.7 g/dL (13.0-16.5); Ketone-Dipstick Negative (Negative); Leukocyte Esterase-Dipstick Negative /ul (Negative); Lymphocyte # 1.93 X10^3/ul (0.83-4.51); Lymphocyte % 26.3 % (19-41); Mean Corp Hgb Conc 33.4 g/dL (32-36); Mean Corpuscular Hgb 29.6 pg (27.0-32.0); Mean Corpuscular Volume 88.6 fL (80-94); Mean Platelet Vol. 10.4 fl (6.2-12.0); Monocyte# 0.68 X10^3/uL; Monocyte% 9.3 % (0-10); NRBC Flagged by Analyzer 0 % (0-5); Neutrophil # 4.54 X10^3/uL (2.7-7.7); Neutrophil % 61.8 % (47-70); Nitrite-Dipstick Negative (Negative); Occult Blood-Urine Negative /ul (Negative); Platelet Count 315 K/mm3 (150-450); Protein-Dipstick 15 mg/dl (Negative); RBC Distribution Width CV 13.4 % (11.6-14.6); RBC Distribution Width SD 43.5 fl (35.1-43.9); Red Blood Count 4.63 M/mm3 (4.6-6.2); Urine Bilirubin Dipstick Negative (Negative); Urine Clarity Clear (Clear); Urine Urobilinogen Normal (Normal); White Blood Count 7.3 K/mm3 (4.4-11.0)
[2025-03-25 11:29] LABS: Protein, Urine (Random) 17.2 mg/dL (0.0-12.0); Protein:Creat Ratio 73 mg/g CRE (0-200)
[2025-03-25 11:34] LABS: Hemoglobin A1c 5.8 % (<=5.6)
[2025-03-25 11:54] LABS: ALB/GLOB Ratio 1.5 RATIO (0.9-2.4); AST(SGOT) 21 U/L (<=37); Alanine Aminotransfer ALT/SGPT 24 U/L (<=46); Albumin, Serum 4.1 g/dL (3.5-5.0); Alkaline Phosphatase 98 U/L (40-129); Anion Gap 11 (5-15); BUN 16 mg/dL (4-19); BUN/Creat Ratio 12.5 RATIO (10-20); Calcium,Total 8.5 mg/dL (7.6-11.0); Carbon Dioxide 22.3 mmol/L (21.0-32.0); Chloride 107 mmol/L (98-108); Creatinine, Serum 1.27 mg/dL (0.70-1.20); EST Glomerular Filtration Rate 66 (>60); Globulin 2.8 g/dL (2.2-4.2); Glucose 99 mg/dL (70-99); Potassium 4.2 mmol/L (3.3-5.1); Protein, Total 6.9 g/dL (5.9-8.4); Sodium Level 140 mmol/L (133-145); Total Bilirubin 0.33 mg/dL (0.00-1.30); Vitamin D,25 Hydroxy 16.8 ng/mL (30-100)
[2025-03-26 14:08] LABS: PSA, Free 1.08 ng/mL; PSA, Free % 26.7 % (.)
== END | disposition home or self-care (01) ==
LOC: MFPLAB 08:03
PROVIDERS: PCP Family Medicine; Referring Provider Family Medicine; Visit Provider Family Medicine
DX: R97.20 Elevated prostate specific antigen [PSA] (principal); N18.30 Chronic kidney disease, stage 3 unspecified
CPT/HCPCS: 36415; 80053; 81001; 82306; 82570; 83036; 84153; 84154; 84156; 85025

== ENCOUNTER → 2025-09-24 | Outpatient (CLI) | payer BC, SELFPAY ==
[2025-09-24 16:37] LABS: Mucous, Urine 0 SEEN /hpf (<or=2+); Red Blood Cells-Urine 0 SEEN /hpf (0-5); Squamous Epithelial Cells - UA 0 SEEN /hpf (0-5)
[2025-09-24 17:53] LABS: Hematocrit 39.6 % (40-54); Hemoglobin 13.0 g/dL (13.0-16.5); Immature Granulocytes Count 0.020 X10^3/uL (0.0-0.0); Mean Corp Hgb Conc 32.8 g/dL (32-36); Mean Corpuscular Volume 87.0 fL (80-94); Mean Platelet Vol. 10.1 fl (6.2-12.0); NRBC Flagged by Analyzer 0 % (0-5); Platelet Count 334 K/mm3 (150-450); RBC Distribution Width CV 13.4 % (11.6-14.6); RBC Distribution Width SD 42.7 fl (35.1-43.9); Red Blood Count 4.55 M/mm3 (4.6-6.2); White Blood Count 7.9 K/mm3 (4.4-11.0)
[2025-09-24 17:57] LABS: Color, Urine Yellow (Yellow); Glucose, Dipstick Normal (Normal); Ketone-Dipstick Negative (Negative); Leukocyte Esterase-Dipstick Negative /ul (Negative); Nitrite-Dipstick Negative (Negative); Occult Blood-Urine Negative /ul (Negative); Protein-Dipstick Negative (Negative); Specific Gravity, Urine 1.015 (1.002-1.030); Urine Bilirubin Dipstick Negative (Negative)
[2025-09-24 18:16] LABS: PTHIN 64 pg/mL (11-61)
[2025-09-24 18:30] LABS: Cholesterol 185 mg/dL (<=200); Low Density Lipoprotein Calc. 110 mg/dL; Magnesium 2.1 mg/dL (1.5-2.2); Triglycerides 241 mg/dL; Very Low Density Lipoprotein 48 mg/dL (5-40); Vitamin D,25 Hydroxy 44.1 ng/mL (30-100); cholesterol:hdl ratio screen 5.61
[2025-09-24 18:31] LABS: AST(SGOT) 21 U/L (<=37); Alanine Aminotransfer ALT/SGPT 24 U/L (<=46); Albumin, Serum 4.2 g/dL (3.5-5.0); Alkaline Phosphatase 96 U/L (40-129); Anion Gap 11 (5-15); BUN 15 mg/dL (4-19); BUN/Creat Ratio 11.1 RATIO (10-20); Calcium,Total 8.9 mg/dL (7.6-11.0); Carbon Dioxide 24.6 mmol/L (21.0-32.0); Chloride 105 mmol/L (98-108); Globulin 2.9 g/dL (2.2-4.2); Glucose 101 mg/dL (70-99); Potassium 4.1 mmol/L (3.3-5.1)
== END | disposition home or self-care (01) ==
PROVIDERS: PCP Family Medicine; Referring Provider Family Medicine; Visit Provider Family Medicine
DX: I12.9 Hypertensive chronic kidney disease with stage 1 through stage 4 chronic kidney disease, or unspecified chronic kidney disease (principal); N18.30 Chronic kidney disease, stage 3 unspecified; R73.02 Impaired glucose tolerance (oral)
CPT/HCPCS: 36415; 80053; 80061; 81001; 82306; 83036; 83735; 83970; 85025

== ENCOUNTER → 2025-11-01 | Outpatient (CLI) | payer SELFPAY ==
--- NOTE | 2025-11-01 08:42 | ECHOD_ITS ---
Reason For Study Reason For Study: ANEURYSM, THORACIC AORTIC Procedure This was a 2D Doppler, Color Flow transthoracic echocardiogram. The patient is in sinus rhythm. Exam performed in department. Left Ventricle Normal LV size. The left ventricular ejection fraction is 70 %. No regional wall motion abnormalities noted. Right Ventricle Normal RV size. Normal systolic function. Atria Normal left atrium. Normal right atrium. Mitral Valve Normal mitral valve. Tricuspid Valve Normal tricuspid valve. Aortic Valve Normal aortic valve. Trisinus/trileaflet aortic valve. Pulmonic Valve Normal pulmonic valve. Trivial pulmonic valve insufficiency identified. Great Vessels Mildly dilated aortic root. Measuring 3.9 cm. The pulmonary artery is normal size. Inferior vena cava collapse with respiration. Pericardium/Pleural No pericardial effusion. MMode/2D Measurements & Calculations LVIDd: 4.9 cm IVSd: 0.69 cm Ao root diam: 3.9 cm LVIDs: 3.0 cm LVPWd: 0.86 cm RVDd: 2.2 cm FS: 39.2 % asc Aorta Diam: 4.0 cm LAV(MOD-bp): 43.5 ml LVAd ap4: 29.0 cm2 LAV(MOD-bp) Indexed: 20.6 ml/m2 LVLd ap4: 8.9 cm LAV(MOD-sp2): 40.2 ml EDV(MOD-sp4): 78.6 ml LAV(MOD-sp4): 40.6 ml EDV(sp4-el): 80.1 ml LVAs ap4: 14.6 cm2 LVLs ap4: 7.4 cm ESV(MOD-sp4): 26.4 ml ESV(sp4-el): 24.4 ml EF(MOD-sp4): 66.4 % EF(sp4-el): 69.6 % LVAd ap2: 29.5 cm2 SV(MOD-sp4): 52.2 ml SV(MOD-sp2): 60.1 ml LVLd ap2: 8.7 cm SI(MOD-sp4): 24.7 ml/m2 SI(MOD-sp2): 28.5 ml/m2 EDV(MOD-sp2): 83.9 ml EDV(sp2-el): 84.7 ml LVAs ap2: 13.8 cm2 LVLs ap2: 6.8 cm ESV(MOD-sp2): 23.8 ml ESV(sp2-el): 24.0 ml EF(MOD-sp2): 71.6 % SV(sp4-el): 55.7 ml LA dimension(2D): 3.7 cm LA A4 area: 17.0 cm2 RA A4 area: 15.3 cm2 TAPSE: 2.6 cm Time Measurements MV dec time: 0.28 sec Doppler Measurements & Calculations MV E max keaton: 58.4 cm/sec Lat Peak E' Keaton: 13.4 cm/sec Med Peak E' Keaton: 8.8 cm/sec MV A max keaton: 57.0 cm/sec E/E' lat: 4.4 E/E' med: 6.7 MV E/A: 1.0 Ao V2 max: 123.9 cm/sec LV V1 max: 99.4 cm/sec MV dec slope: 207.2 cm/sec2 Ao max P.1 mmHg LV V1 max P.9 mmHg Ao V2 mean: 78.2 cm/sec LV V1 mean P.0 mmHg Ao mean P.9 mmHg LV V1 mean: 64.8 cm/sec Ao V2 VTI: 20.1 cm LV V1 VTI: 19.4 cm AV (velocity ratio): 0.97 PA V2 max: 109.6 cm/sec ECHO/Echo Complete Interpretation Summary Normal LV size. The left ventricular ejection fraction is 70 %. Mildly dilated aortic root. Structurally normal valves. Ordering Physician: Mikel Pino Referring Physician: Mikel Pino Performed By: Worthington, Tachianna, RDCS
--- OUTSIDE RECORDS SUMMARY | 2025-11-01 09:03 | XMS RPT_ITS | CCD ---
Author Organization [facility] [employer] [facility] Care Team Providers Care On Awake Counselor Name Role Phone Dr. Mikel Pino Primary Care Provider Dr. Moses Bright Attending Provider Dr. Mikel Pino Primary Care Provider Dr. Marky Medina Attending Provider [phone] Mikel Pino Primary Care Unavailable Mikel Pino Referring Unavailable Mikel Pino Attending Unavailable Mikel Pino Referring Unavailable Mikel Pino Attending Unavailable Mikel Pino Primary Care Unavailable Allergies Allergy Classification Reported Allergen(s) Allergy Type Date of Onset Reaction(s) Facility (5 sources) tetanus and diphtheria toxoids; Translations: [tetanus and diphtheria toxoids] Propensity to adverse reactions 12-09-2021 [facility] Problems Active Problems Problem Classification Problem Date Documented Da te Episodic/Chronic Aortic; peripheral; and visceral artery aneurysms (4 sources) Aneurysm of thoracic aorta; Translations: [Thoracic aortic aneurysm, without rupture] 12-12-2017 Chronic Essential hypertension (4 sources) Hypertensive disorder; Translations: [Essential (primary) hypertension] 12-12-2017 Chronic Hypertension with complications and secondary hypertension (1 source) Hypertensive chronic kidney disease with stage 1 through stage 4 chronic kidney disease, or unspecified chronic kidney disease; Translations: [Hypertensive chronic kidney disease with stage 1 through stage 4 chronic kidney disease, or unspecified chronic kidney disease] Onset: 10-01-2025 Chronic Nonspecific chest pain (4 sources) Chest pain; Translations: [Chest pain, unspecified] 12-12-2017 Episodic Other nutritional; endocrine; and metabolic disorders (4 sources) Overweight in adulthood with body mass index of 25 or more but less than 30; Translations: [Body mass index (BMI) 29.0-29.9, adult] 12-09-2021 Episodic Viral infection (4 sources) Disease caused by 2019-nCoV; Translations: [COVID-19] 12-09-2021 Episodic Past or Other Problems Problem Classification Problem Date Documented Da te Episodic/Chronic Other screening for suspected conditions (not mental disorders or infectious disease) (1 source) Elevated prostate specific antigen [PSA]; Translations: [Elevated prostate specific antigen [PSA]] Onset: 03-31-2025 Episodic Results Test Name Value Interpretation Reference Range Facility CBC W/Diff, Automatedon 10- Absolute Lymph 2.37 X10 3/uL Normal 0.83-4.51 [facility] Comment on above: Order Comment: Order Date: 09/24/25 Order Info: [id number] - CBCD Performed By: #### L 501.9985, L100.0100, L501.5200, L500.4100, L500.4050, L509.1000 #### [facility] [address] [place], [address] Absolute Neut 4.2 X10 3/uL Normal 2.0-7.7 [facility] Comment on above: Order Comment: Order Date: 09/24/25 Order Info: [id number] - CBCD Performed By: #### L 501.9985, L100.0100, L501.5200, L500.4100, L500.4050, L509.1000 #### [facility] [address] [place], [address] Basophils/100 WBC (Bld) 0.5 % Normal 0-1 [facility] Comment on above: Order Comment: Order Date: 09/24/25 Order Info: [id number] - CBCD Performed By: #### L 501.9985, L100.0100, L501.5200, L500.4100, L500.4050, L509.1000 #### [facility] [address] [place], [address] Eosinophils/100 WBC (Bld) 2.1 % Normal 0-5 [facility] Comment on above: Order Comment: Order Date: 09/24/25 Order Info: [id number] - CBCD Performed By: #### L 501.9985, L100.0100, L501.5200, L500.4100, L500.4050, L509.1000 #### [facility] [address] [place], [address] Erythrocyte distribution width (RBC) [Ratio] 13.4 % Normal 11.6-14.6 [facility] Comment on above: Order Comment: Order Date: 09/24/25 Order Info: [id number] - CBCD Performed By: #### L 501.9985, L100.0100, L501.5200, L500.4100, L500.4050, L509.1000 #### [facility] [address] [place], [address] Hematocrit (Bld) [Volume fraction] 39.6 % Low 40-54 [facility] Comment on above: Order Comment: Order Date: 09/24/25 Order Info: [id number] - CBCD Performed By: #### L 501.9985, L100.0100, L501.5200, L500.4100, L500.4050, L509.1000 #### [facility] [address] [place], [address] Hemoglobin (Bld) [Mass/Vol] 13.0 g/dL Normal 13.0-16.5 [facility] Comment on above: Order Comment: Order Date: 09/24/25 Order Info: [id number] - CBCD Performed By: #### L 501.9985, L100.0100, L501.5200, L500.4100, L500.4050, L509.1000 #### [facility] [address] [place], [address] IG% 0.300 Normal 0.0-0.9 [facility] Comment on above: Order Comment: Order Date: 09/24/25 Order Info: [id number] - CBCD Result Comment: IG% - Immature Granulocytes (promyelocytes, myelocytes and metamyelocytes) > 1% indicates that a LEFT SHIFT is Present. Performed By: #### L 501.9985, L100.0100, L501.5200, L500.4100, L500.4050, L509.1000 #### [facility] [address] [place], [address] Lymphocytes/100 WBC (Bld) 30.0 % Normal 19-41 [facility] Comment on above: Order Comment: Order Date: 09/24/25 Order Info: [id number] - CBCD Performed By: #### L 501.9985, L100.0100, L501.5200, L500.4100, L500.4050, L509.1000 #### [facility] [address] [place], [address] MCH (RBC) [Entitic mass] 28.6 pg Normal 27.0-32.0 [facility] Comment on above: Order Comment: Order Date: 09/24/25 Order Info: [id number] - CBCD Performed By: #### L 501.9985, L100.0100, L501.5200, L500.4100, L500.4050, L509.1000 #### [facility] [address] [place], [address] MCHC (RBC) [Mass/Vol] 32.8 g/dL Normal 32-36 [facility] Comment on above: Order Comment: Order Date: 09/24/25 Order Info: [id number] - CBCD Performed By: #### L 501.9985, L100.0100, L501.5200, L500.4100, L500.4050, L509.1000 #### [facility] [address] [place], [address] MCV (RBC) [Entitic vol] 87.0 fL Normal 80-94 [facility] Comment on above: Order Comment: Order Date: 09/24/25 Order Info: [id number] - CBCD Performed By: #### L 501.9985, L100.0100, L501.5200, L500.4100, L500.4050, L509.1000 #### [facility] [address] [place], [address] Monocytes/100 WBC (Bld) 13.5 % High 0-10 [facility] Comment on above: Order Comment: Order Date: 09/24/25 Order Info: [id number]- - CBCD Performed By: #### L 501.9985, L100.0100, L501.5200, L500.4100, L500.4050, L509.1000 #### [facility] [address] [place], [address] Neutrophils/100 WBC (Bld) 53.6 % Normal 47-70 [facility] Comment on above: Order Comment: Order Date: 09/24/25 Order Info: [id number]- - CBCD Performed By: #### L 501.9985, L100.0100, L501.5200, L500.4100, L500.4050, L509.1000 #### [facility] [address] [place], [address] Nucleated RBC (Bld) [#/Vol] 0 10*3/uL Normal 0-5 [facility] Comment on above: Order Comment: Order Date: 09/24/25 Order Info: [id number]- - CBCD Performed By: #### L 501.9985, L100.0100, L501.5200, L500.4100, L500.4050, L509.1000 #### [facility] [address] [place], [address] Platelet mean volume (Bld) [Entitic vol] 10.1 fL Normal 6.2-12.0 [facility] Comment on above: Order Comment: Order Date: 09/24/25 Order Info: [id number]- - CBCD Performed By: #### L 501.9985, L100.0100, L501.5200, L500.4100, L500.4050, L509.1000 #### [facility] [address] [place], [address] Platelets (Bld) [#/Vol] 334 10*3/uL Normal 150-450 [facility] Comment on above: Order Comment: Order Date: 09/24/25 Order Info: 018- - CBCD Performed By: #### L 501.9985, L100.0100, L501.5200, L500.4100, L500.4050, L509.1000 #### [facility] [address] [place], [address] RBC (Bld) [#/Vol] 4.55 10*6/uL Low 4.6-6.2 [facility] Comment on above: Order Comment: Order Date: 09/24/25 Order Info: [id number] - CBCD Performed By: #### L 501.9985, L100.0100, L501.5200, L500.4100, L500.4050, L509.1000 #### [facility] [address] [place], [address] RDW SD 42.7 fl Normal 35.1-43.9 [facility] Comment on above: Order Comment: Order Date: 09/24/25 Order Info: [id number]- - CBCD Performed By: #### L 501.9985, L100.0100, L501.5200, L500.4100, L500.4050, L509.1000 #### [facility] [address] [place], [address] WBC (Bld) [#/Vol] 7.9 10*3/uL Normal 4.4-11.0 [facility] Comment on above: Order Comment: Order Date: 09/24/25 Order Info: [id number]- - CBCD Performed By: #### L 501.9985, L100.0100, L501.5200, L500.4100, L500.4050, L509.1000 #### [facility] [address] [place], [address] Comprehensive Metabolic Prof ilon 09-24-2025 Albumin [Mass/Vol] 4.2 g/dL Normal 3.5-5.0 [facility] Comment on above: Order Comment: Order Date: 09/24/25Order Info: [id number] - CMPOrder Info: [id number] - LIPIDOrder Info: [id number] - MG Performed By: #### L 501.0900, L506.1001, L400.0001 #### [facility] [address] [place], [address] Albumin/Globulin [Mass ratio] 1.5 {ratio} Normal 0.9-2.4 [facility] Comment on above: Order Comment: Order Date: 09/24/25Order Info: [id number] - CMPOrder Info: [id number] - LIPIDOrder Info: [id number] - MG Performed By: #### L 501.0900, L506.1001, L400.0001 #### [facility] [address] [place], [address] ALK PHOS 96 U/L Normal 40-129 [facility] Comment on above: Order Comment: Order Date: 09/24/25Order Info: [id number] - CMPOrder Info: [id number] - LIPIDOrder Info: [id number] - MG Performed By: #### L 501.0900, L506.1001, L400.0001 #### [facility] [address] [place], [address] ALT [Catalytic activity/Vol] 24 U/L Normal <=46 [facility] Comment on above: Order Comment: Order Date: 09/24/25Order Info: [id number] - CMPOrder Info: [id number] - LIPIDOrder Info: [id number] - MG Performed By: #### L 501.0900, L506.1001, L400.0001 #### [facility] [address] [place], [address] AST [Catalytic activity/Vol] 21 U/L Normal <=37 [facility] Comment on above: Order Comment: Order Date: 09/24/25Order Info: [id number] - CMPOrder Info: [id number] - LIPIDOrder Info: [id number] - MG Performed By: #### L 501.0900, L506.1001, L400.0001 #### [facility] [address] [place], [address] Bilirubin [Mass/Vol] 0.26 mg/dL Normal 0.00-1.30 [facility] Comment on above: Order Comment: Order Date: 09/24/25Order Info: [id number] - CMPOrder Info: [id number] - LIPIDOrder Info: [id number] - MG Performed By: #### L 501.0900, L506.1001, L400.0001 #### [facility] [address] [place], [address] BUN/CRE 11.1 RATIO Normal 10-20 [facility] Comment on above: Order Comment: Order Date: 09/24/25Order Info: [id number] - CMPOrder Info: [id number] - LIPIDOrder Info: [id number] - MG Performed By: #### L 501.0900, L506.1001, L400.0001 #### [facility] [address] [place], [address] Calcium [Mass/Vol] 8.9 mg/dL Normal 7.6-11.0 [facility] Comment on above: Order Comment: Order Date: 09/24/25Order Info: [id number] - CMPOrder Info: [id number] - LIPIDOrder Info: [id number] - MG Performed By: #### L 501.0900, L506.1001, L400.0001 #### [facility] [address] [place], [address] Chloride [Moles/Vol] 105 mmol/L Normal 98-108 [facility] Comment on above: Order Comment: Order Date: 09/24/25Order Info: [id number] - CMPOrder Info: [id number] - LIPIDOrder Info: [id number] - MG Performed By: #### L 501.0900, L506.1001, L400.0001 #### [facility] [address] [place], [address] CO2 [Moles/Vol] 24.6 mmol/L Normal 21.0-32.0 [facility] Comment on above: Order Comment: Order Date: 09/24/25Order Info: [id number] - CMPOrder Info: [id number] - LIPIDOrder Info: [id number] - MG Performed By: #### L 501.0900, L506.1001, L400.0001 #### [facility] [address] [place], [address] Creatinine [Mass/Vol] 1.35 mg/dL High 0.70-1.20 [facility] Comment on above: Order Comment: Order Date: 09/24/25Order Info: [id number] - CMPOrder Info: [id number] - LIPIDOrder Info: [id number] - MG Performed By: #### L 501.0900, L506.1001, L400.0001 #### [facility] [address] [place], [address] GAP 11 Normal 5-15 [facility] Comment on above: Order Comment: Order Date: 09/24/25Order Info: [id number] - CMPOrder Info: [id number] - LIPIDOrder Info: [id number] - MG Performed By: #### L 501.0900, L506.1001, L400.0001 #### [facility] [address] [place], [address] GFR/1.73 sq M.predicted among non-blacks MDRD (S/P/Bld) [Vol rate/Area] 61 mL/min/{1.73_m2} Normal >60 [facility] Comment on above: Order Comment: Order Date: 09/24/25Order Info: [id number] - CMPOrder Info: [id number] - LIPIDOrder Info: [id number] - MG Result Comment: mL/m in/1.73m2 CKD-EPI Creatinine Equation (2020) Performed By: #### L 501.0900, L506.1001, L400.0001 #### [facility] [address] [place], [address] Globulin (S) [Mass/Vol] 2.9 g/dL Normal 2.2-4.2 [facility] Comment on above: Order Comment: Order Date: 09/24/25Order Info: [id number] - CMPOrder Info: [id number] - LIPIDOrder Info: [id number] - MG Performed By: #### L 501.0900, L506.1001, L400.0001 #### [facility] [address] [place], [address] Glucose [Mass/Vol] 101 mg/dL High 70-99 [facility] Comment on above: Order Comment: Order Date: 09/24/25Order Info: [id number] - CMPOrder Info: [id number] - LIPIDOrder Info: [id number] - MG Performed By: #### L 501.0900, L506.1001, L400.0001 #### [facility] [address] [place], [address] Potassium [Moles/Vol] 4.1 mmol/L Normal 3.3-5.1 [facility] Comment on above: Order Comment: Order Date: 09/24/25Order Info: [id number] - CMPOrder Info: [id number] - LIPIDOrder Info: [id number] - MG Performed By: #### L 501.0900, L506.1001, L400.0001 #### [facility] [address] [place], [place], [address] Sodium [Moles/Vol] 140 mmol/L Normal 133-145 [facility] Comment on above: Order Comment: Order Date: 09/24/25Order Info: [id number] - CMPOrder Info: [id number] - LIPIDOrder Info: [id number] - MG Performed By: #### L 501.0900, L506.1001, L400.0001 #### [facility] [address] [place], [address] T PROT 7.0 g/dL Normal 5.9-8.4 [facility] Comment on above: Order Comment: Order Date: 09/24/25Order Info: [id number] - CMPOrder Info: [id number] - LIPIDOrder Info: [id number] - MG Performed By: #### L 501.0900, L506.1001, L400.0001 #### [facility] [address] [place], [address] Urea nitrogen [Mass/Vol] 15 mg/dL Normal 4-19 [facility] Comment on above: Order Comment: Order Date: 09/24/25Order Info: [id number] - CMPOrder Info: [id number] - LIPIDOrder Info: [id number] - MG Performed By: #### L 501.0900, L506.1001, L400.0001 #### [facility] [address] [place], [address] Hemoglobin A1con 09-24-2025 HbA1c (Bld) [Mass fraction] 5.9 % High <=5.6 [facility] Comment on above: Order Comment: Order Date: 09/24/25Order Info: [id number] - A1C Result Comment: Norm al < 5.7 % Prediabetic 5.7 - 6.4 % Diabetic >or= 6.5 % Please note range changes. Performed By: #### L 501.0900, L506.1001, L400.0001 #### [facility] [address] [place], [address] Lipid Profileon 09-24-2025 CHOL:HDL 5.61 Normal [facility] Comment on above: Order Comment: Order Date: 09/24/25Order Info: [id number] - CMPOrder Info: [id number] - LIPIDOrder Info: [id number] - MG Performed By: #### L 501.0900, L506.1001, L400.0001 #### [facility] [address] [place], [address] Cholesterol [Mass/Vol] 185 mg/dL Normal <=200 [facility] Comment on above: Order Comment: Order Date: 09/24/25Order Info: [id number] - CMPOrder Info: [id number] - LIPIDOrder Info: [id number] - MG Result Comment: Chol esterol level, Desirable <200 mg/dL Borderline high cholesterol 200-239 mg/dL High cholesterol >=240 mg/dL Recommendations of the NCEP Adult Treatment Panel for the following risk-cutoff thresholds for the [place] population. Performed By: #### L 501.0900, L506.1001, L400.0001 #### [facility] [address] [place], [address] Cholesterol in HDL [Mass/Vol] 33 mg/dL Low [facility] Comment on above: Order Comment: Order Date: 09/24/25Order Info: [id number] - CMPOrder Info: [id number] - LIPIDOrder Info: [id number] - MG Result Comment: Chelsey onal Cholesterol Education Program (NCEP) guidelines: <40 mg/dL: Low HDL-cholesterol (major risk factor for CHD) >= 60 mg/dL: High HDL-cholesterol (negative risk factor for CHD) HDL-cholesterol is affected by a number of factors, e.g. smoking, exercise, hormones, sex and age. Performed By: #### L 501.0900, L506.1001, L400.0001 #### [facility] [address] [place], [address] Cholesterol in LDL [Mass/Vol] 110 mg/dL Normal [facility] Comment on above: Order Comment: Order Date: 09/24/25Order Info: [id number] - CMPOrder Info: [id number] - LIPIDOrder Info: [id number] - MG Result Comment: Bord mamdou=180-029 mg/dL Higher Xura=716 mg/dL or greater Daniel Equation 2020 for LDL-C Performed By: #### L 501.0900, L506.1001, L400.0001 #### [facility] [address] [place], [address] Cholesterol in VLDL [Mass/Vol] 48 mg/dL High 5-40 [facility] Comment on above: Order Comment: Order Date: 09/24/25Order Info: [id number] - CMPOrder Info: [id number] - LIPIDOrder Info: [id number] - MG Performed By: #### L 501.0900, L506.1001, L400.0001 #### [facility] [address] [place], [address] Triglyceride [Mass/Vol] 241 mg/dL [facility] Comment on above: Order Comment: Order Date: 09/24/25Order Info: 07- - CMPOrder Info: [id number] - LIPIDOrder Info: [id number] - MG Result Comment: The drugs N-Acetylcysteine and Metamizole may falsely depress this assay. Normal range: <150 mg/dL Borderline High: 150-199 mg/dL High: 200-499 mg/dL Very High: >500 mg/dL Performed By: #### L 501.0900, L506.1001, L400.0001 #### [facility] [address] [place], [address] Magnesiumon 09-24-2025 Magnesium [Mass/Vol] 2.1 mg/dL Normal 1.5-2.2 [facility] Comment on above: Order Comment: Order Date: 09/24/25Order Info: [id number] - CMPOrder Info: [id number] - LIPIDOrder Info: [id number] - MG Performed By: #### L 501.0900, L506.1001, L400.0001 #### [facility] [address] [place], [address] PTHINon 09-24-2025 PTH 64 pg/mL High 11-61 [facility] Comment on above: Order Comment: Order Date: 09/24/25Order Info: [id number] - PTHIN Performed By: #### L 501.0900, L506.1001, L400.0001 #### [facility] [address] [place], [address] Urinalysis, Completeon 09-24 BACTERIA 0 SEEN Normal None Seen [facility] Comment on above: Order Comment: CLEAN CATCH Performed By: #### L 506.1001, L400.0001 #### [facility] [address] [place], [address] EPI,SQUAMOUS 0 SEEN Normal 0-5 [facility] Comment on above: Order Comment: CLEAN CATCH Performed By: #### L 506.1001, L400.0001 #### [facility] [address] [place], [address] Mucus Ql (Urine sed) 0 SEEN Normal [facility] Comment on above: Order Comment: CLEAN CATCH Performed By: #### L 506.1001, L400.0001 #### [facility] [address] [place], [address] RBC 0 SEEN Normal 0-5 [facility] Comment on above: Order Comment: CLEAN CATCH Performed By: #### L 506.1001, L400.0001 #### [facility] [address] [place], [address] WBC 0 SEEN Normal 0-5 [facility] Comment on above: Order Comment: CLEAN CATCH Performed By: #### L 506.1001, L400.0001 #### [facility] [address] [place], [address] Vitamin D,25 Hydroxyon 09-24 Vitamin D 25-OH 44.1 ng/mL Normal 30-100 [facility] Comment on above: Order Comment: Order Date: 09/24/25 Order Info: [id number] - CMP Order Info: [id number] - LIPID Order Info: [id number] - MG Result Comment: Mallory min D Status Deficiency: <20 ng/mL (50nmol/L) Insufficiency: 20-30 ng/mL (50-75 nmol/L) Sufficiency: 30-100 ng/mL (75-250 nmol/L) Toxicity: >100 ng/mL (>250 nmol/L) Performed By: #### L 506.1001, L400.0001 #### [facility] [address] [place], [address] PSA Total+%Freeon 03-26-2025 PSA, FREE 1.08 ng/mL Normal N/A [facility] Comment on above: Order Comment: Order Date: 03/22/25 Order Info: [id number] - PSAT%F Result Comment: Dewayne REAL methodology. Performed By: #### L 3110.0500, L501.9985, L100.0100, L500.4050 #### [facility] [address] [place], [address] PSA, FREE % 26.7 Normal . [facility] Comment on above: Order Comment: Order Date: 03/22/25 Order Info: [id number] - PSAT%F Result Comment: The table below lists the probability of prostate cancer for men with non-suspicious TRAMAINE results and total PSA between 4 and 10 ng/mL, by patient age (Isabelle et al, JERO 1998, [id number]:1542). % Free PSA 50-64 yr 65-75 yr 0.00-10.00% 56% 55% 10.01-15.00% 24% 35% 15.01-20.00% 17% 23% 20.01-25.00% 10% 20% >25.00% 5% 9% Please note: Isabelle et al did not make specific recommendations regarding the use of percent free PSA for any other population of men. Performed at: [facility] [id number] Drain Technician: Placido Moore PhD, Phone: [phone] Performed By: #### L 3110.0500, L501.9985, L100.0100, L500.4050 #### [facility] [address] [place], [place], [id number] PSA, TOTAL ULTR 4.050 ng/mL Abnormal 0.000-4.000 [facility] Comment on above: Order Comment: Order Date: 03/22/25 Order Info: [id number] - PSAT%F Result Comment: Dewayne estrella ECLIA methodology. According to the [place] [employer], Serum PSA should decrease and remain at undetectable levels after radical prostatectomy. The AUA defines biochemical recurrence as an initial PSA value 0.200 ng/mL or greater followed by a subsequent confirmatory PSA value 0.200 ng/mL or greater. Values obtained with different assay methods or kits cannot be used interchangeably. Results cannot be interpreted as absolute evidence of the presence or absence of malignant disease. Performed By: #### L 3110.0500, L501.9985, L100.0100, L500.4050 #### [facility] [address] [place], [place], [id number] CBC W/Diff, Automatedon 02-27 Absolute Lymph 1.93 X10 3/uL Normal 0.83-4.51 [facility] Comment on above: Order Comment: Order Date: 03/22/25 Order Info: [id number] - CBCD Performed By: #### L 3110.0500, L501.9985, L100.0100, L500.4050 #### [facility] [address] [place], [place], [address] (650) Absolute Neut 4.5 X10 3/uL Normal 2.0-7.7 [facility] Comment on above: Order Comment: Order Date: 03/22/25 Order Info: [id number] - CBCD Performed By: #### L 3110.0500, L501.9985, L100.0100, L500.4050 #### [facility] [address] [place], [address] Basophils/100 WBC (Bld) 0.7 % Normal 0-1 [facility] Comment on above: Order Comment: Order Date: 03/22/25 Order Info: [id number] - CBCD Performed By: #### L 3110.0500, L501.9985, L100.0100, L500.4050 #### [facility] [address] [place], [address] Eosinophils/100 WBC (Bld) 1.6 % Normal 0-5 [facility] Comment on above: Order Comment: Order Date: 03/22/25 Order Info: [id number] - CBCD Performed By: #### L 3110.0500, L501.9985, L100.0100, L500.4050 #### [facility] [address] [place], [address] Erythrocyte distribution width (RBC) [Ratio] 13.4 % Normal 11.6-14.6 [facility] Comment on above: Order Comment: Order Date: 03/22/25 Order Info: 0184-1 - CBCD Performed By: #### L 3110.0500, L501.9985, L100.0100, L500.4050 #### [facility] [address] [place], [address] Hematocrit (Bld) [Volume fraction] 41.0 % Normal 40-54 [facility] Comment on above: Order Comment: Order Date: 03/22/25 Order Info: 0184-1 - CBCD Performed By: #### L 3110.0500, L501.9985, L100.0100, L500.4050 #### [facility] [address] [place], [address] Hemoglobin (Bld) [Mass/Vol] 13.7 g/dL Normal 13.0-16.5 [facility] Comment on above: Order Comment: Order Date: 03/22/25 Order Info: 0184-1 - CBCD Performed By: #### L 3110.0500, L501.9985, L100.0100, L500.4050 #### [facility] [address] [place], [address] IG% 0.300 Normal 0.0-0.9 [facility] Comment on above: Order Comment: Order Date: 03/22/25 Order Info: 0184-1 - CBCD Result Comment: IG% - Immature Granulocytes (promyelocytes, myelocytes and metamyelocytes) > 1% indicates that a LEFT SHIFT is Present. Performed By: #### L 3110.0500, L501.9985, L100.0100, L500.4050 #### [facility] [address] [place], [address] Lymphocytes/100 WBC (Bld) 26.3 % Normal 19-41 [facility] Comment on above: Order Comment: Order Date: 03/22/25 Order Info: 0184-1 - CBCD Performed By: #### L 3110.0500, L501.9985, L100.0100, L500.4050 #### [facility] [address] [place], [address] MCH (RBC) [Entitic mass] 29.6 pg Normal 27.0-32.0 [facility] Comment on above: Order Comment: Order Date: 03/22/25 Order Info: 0184-1 - CBCD Performed By: #### L 3110.0500, L501.9985, L100.0100, L500.4050 #### [facility] [address] [place], [address] MCHC (RBC) [Mass/Vol] 33.4 g/dL Normal 32-36 [facility] Comment on above: Order Comment: Order Date: 03/22/25 Order Info: 0184-1 - CBCD Performed By: #### L 3110.0500, L501.9985, L100.0100, L500.4050 #### [facility] [address] [place], [address] MCV (RBC) [Entitic vol] 88.6 fL Normal 80-94 [facility] Comment on above: Order Comment: Order Date: 03/22/25 Order Info: 0184-1 - CBCD Performed By: #### L 3110.0500, L501.9985, L100.0100, L500.4050 #### [facility] [address] [place], [address] Monocytes/100 WBC (Bld) 9.3 % Normal 0-10 [facility] Comment on above: Order Comment: Order Date: 03/22/25 Order Info: 0184- - CBCD Performed By: #### L 3110.0500, L501.9985, L100.0100, L500.4050 #### [facility] [address] [place], [address] Neutrophils/100 WBC (Bld) 61.8 % Normal 47-70 [facility] Comment on above: Order Comment: Order Date: 03/22/25 Order Info: 0184- - CBCD Performed By: #### L 3110.0500, L501.9985, L100.0100, L500.4050 #### [facility] [address] [place], [address] Nucleated RBC (Bld) [#/Vol] 0 10*3/uL Normal 0-5 [facility] Comment on above: Order Comment: Order Date: 03/22/25 Order Info: 0184-1 - CBCD Performed By: #### L 3110.0500, L501.9985, L100.0100, L500.4050 #### [facility] [address] [place], [address] Platelet mean volume (Bld) [Entitic vol] 10.4 fL Normal 6.2-12.0 [facility] Comment on above: Order Comment: Order Date: 03/22/25 Order Info: 0184-1 - CBCD Performed By: #### L 3110.0500, L501.9985, L100.0100, L500.4050 #### [facility] [address] [place], [address] Platelets (Bld) [#/Vol] 315 10*3/uL Normal 150-450 [facility] Comment on above: Order Comment: Order Date: 03/22/25 Order Info: 0184-1 - CBCD Performed By: #### L 3110.0500, L501.9985, L100.0100, L500.4050 #### [facility] [address] [place], [address] RBC (Bld) [#/Vol] 4.63 10*6/uL Normal 4.6-6.2 [facility] Comment on above: Order Comment: Order Date: 03/22/25 Order Info: 0184-1 - CBCD Performed By: #### L 3110.0500, L501.9985, L100.0100, L500.4050 #### [facility] [address] [place], [address] RDW SD 43.5 fl Normal 35.1-43.9 [facility] Comment on above: Order Comment: Order Date: 03/22/25 Order Info: 0184-1 - CBCD Performed By: #### L 3110.0500, L501.9985, L100.0100, L500.4050 #### [facility] [address] [place], [address] WBC (Bld) [#/Vol] 7.3 10*3/uL Normal 4.4-11.0 [facility] Comment on above: Order Comment: Order Date: 03/22/25 Order Info: 0184-1 - CBCD Performed By: #### L 3110.0500, L501.9985, L100.0100, L500.4050 #### [facility] [address] [place], [address] Comprehensive Metabolic Prof ilon 03-25-2025 Albumin [Mass/Vol] 4.1 g/dL Normal 3.5-5.0 [facility] Comment on above: Order Comment: Order Date: 03/22/25 Order Info: 0786-1 - CMP Performed By: #### L 3110.0500, L501.9985, L100.0100, L500.4050 #### [facility] [address] [place], [address] Albumin/Globulin [Mass ratio] 1.5 {ratio} Normal 0.9-2.4 [facility] Comment on above: Order Comment: Order Date: 03/22/25 Order Info: 0786-1 - CMP Performed By: #### L 3110.0500, L501.9985, L100.0100, L500.4050 #### [facility] [address] [place], [address] ALK PHOS 98 U/L Normal 40-129 [facility] Comment on above: Order Comment: Order Date: 03/22/25 Order Info: 0786-1 - CMP Performed By: #### L 3110.0500, L501.9985, L100.0100, L500.4050 #### [facility] [address] [place], [address] ALT [Catalytic activity/Vol] 24 U/L Normal <=46 [facility] Comment on above: Order Comment: Order Date: 03/22/25 Order Info: 0786-1 - CMP Performed By: #### L 3110.0500, L501.9985, L100.0100, L500.4050 #### [facility] [address] [place], [address] AST [Catalytic activity/Vol] 21 U/L Normal <=37 [facility] Comment on above: Order Comment: Order Date: 03/22/25 Order Info: 0786-1 - CMP Performed By: #### L 3110.0500, L501.9985, L100.0100, L500.4050 #### [facility] [address] [place], [address] Bilirubin [Mass/Vol] 0.33 mg/dL Normal 0.00-1.30 [facility] Comment on above: Order Comment: Order Date: 03/22/25 Order Info: 0786-1 - CMP Performed By: #### L 3110.0500, L501.9985, L100.0100, L500.4050 #### [facility] [address] [place], [address] BUN/CRE 12.5 RATIO Normal 10-20 [facility] Comment on above: Order Comment: Order Date: 03/22/25 Order Info: 0786-1 - CMP Performed By: #### L 3110.0500, L501.9985, L100.0100, L500.4050 #### [facility] [address] [place], [address] Calcium [Mass/Vol] 8.5 mg/dL Normal 7.6-11.0 [facility] Comment on above: Order Comment: Order Date: 03/22/25 Order Info: 0786-1 - CMP Performed By: #### L 3110.0500, L501.9985, L100.0100, L500.4050 #### [facility] [address] [place], [address] Chloride [Moles/Vol] 107 mmol/L Normal 98-108 [facility] Comment on above: Order Comment: Order Date: 03/22/25 Order Info: 0786-1 - CMP Performed By: #### L 3110.0500, L501.9985, L100.0100, L500.4050 #### [facility] [address] [place], [address] CO2 [Moles/Vol] 22.3 mmol/L Normal 21.0-32.0 [facility] Comment on above: Order Comment: Order Date: 03/22/25 Order Info: 0786-1 - CMP Performed By: #### L 3110.0500, L501.9985, L100.0100, L500.4050 #### [facility] [address] [place], [address] Creatinine [Mass/Vol] 1.27 mg/dL High 0.70-1.20 [facility] Comment on above: Order Comment: Order Date: 03/22/25 Order Info: 0786-1 - CMP Performed By: #### L 3110.0500, L501.9985, L100.0100, L500.4050 #### [facility] [address] [place], [address] GAP 11 Normal 5-15 [facility] Comment on above: Order Comment: Order Date: 03/22/25 Order Info: 0786-1 - CMP Performed By: #### L 3110.0500, L501.9985, L100.0100, L500.4050 #### [facility] [address] [place], [address] GFR/1.73 sq M.predicted among non-blacks MDRD (S/P/Bld) [Vol rate/Area] 66 mL/min/{1.73_m2} Normal >60 [facility] Comment on above: Order Comment: Order Date: 03/22/25 Order Info: 0786-1 - CMP Result Comment: mL/m in/1.73m2 CKD-EPI Creatinine Equation (2020) Performed By: #### L 3110.0500, L501.9985, L100.0100, L500.4050 #### [facility] [address] [place], [address] Globulin (S) [Mass/Vol] 2.8 g/dL Normal 2.2-4.2 [facility] Comment on above: Order Comment: Order Date: 03/22/25 Order Info: 0786-1 - CMP Performed By: #### L 3110.0500, L501.9985, L100.0100, L500.4050 #### [facility] [address] [place], [address] Glucose [Mass/Vol] 99 mg/dL Normal 70-99 [facility] Comment on above: Order Comment: Order Date: 03/22/25 Order Info: 0786-1 - CMP Performed By: #### L 3110.0500, L501.9985, L100.0100, L500.4050 #### [facility] [address] [place], [address] Potassium [Moles/Vol] 4.2 mmol/L Normal 3.3-5.1 [facility] Comment on above: Order Comment: Order Date: 03/22/25 Order Info: 0786-1 - CMP Performed By: #### L 3110.0500, L501.9985, L100.0100, L500.4050 #### [facility] [address] [place], [address] Sodium [Moles/Vol] 140 mmol/L Normal 133-145 [facility] Comment on above: Order Comment: Order Date: 03/22/25 Order Info: 0786-1 - CMP Performed By: #### L 3110.0500, L501.9985, L100.0100, L500.4050 #### [facility] [address] [place], [address] T PROT 6.9 g/dL Normal 5.9-8.4 [facility] Comment on above: Order Comment: Order Date: 03/22/25 Order Info: 0786-1 - CMP Performed By: #### L 3110.0500, L501.9985, L100.0100, L500.4050 #### [facility] [address] [place], [address] Urea nitrogen [Mass/Vol] 16 mg/dL Normal 4-19 [facility] Comment on above: Order Comment: Order Date: 03/22/25 Order Info: 0786-1 - CMP Performed By: #### L 3110.0500, L501.9985, L100.0100, L500.4050 #### [facility] [address] [place], [address] Hemoglobin A1con 03-25-2025 HbA1c (Bld) [Mass fraction] 5.8 % High <=5.6 [facility] Comment on above: Order Comment: Order Date: 03/22/25 Order Info: 4548-4 - A1C Result Comment: Norm al < 5.7 % Prediabetic 5.7 - 6.4 % Diabetic >or= 6.5 % Please note range changes. Performed By: #### L 3110.0500, L501.9985, L100.0100, L500.4050 #### [facility] [address] [place], [address] Protein+Creatinine Ratio,Uri neon 03-25-2025 PROT:CRE RATIO 73 mg/g CRE Normal 0-200 [facility] Comment on above: Performed By: #### L 501.0900, L506.1001, L400.0001 #### [facility] [address] [place], [address] Protein (U) [Mass/Vol] 17.2 mg/dL High 0.0-12.0 [facility] Comment on above: Performed By: #### L 501.0900, L506.1001, L400.0001 #### [facility] [address] [place], [address] UR CREAT 237.00 mg/dL Normal 39.00-259.00 [facility] Comment on above: Performed By: #### L 501.0900, L506.1001, L400.0001 #### [facility] [address] [place], [address] Urinalysis, Completeon 03-25 BACTERIA 0 SEEN Normal None Seen [facility] Comment on above: Order Comment: CLEAN CATCH Performed By: #### L 501.0900, L506.1001, L400.0001 #### [facility] [address] [place], [address] EPI,SQUAMOUS 0 SEEN Normal 0-5 [facility] Comment on above: Order Comment: CLEAN CATCH Performed By: #### L 501.0900, L506.1001, L400.0001 #### [facility] [address] [place], [address] Mucus Ql (Urine sed) 0 SEEN Normal [facility] Comment on above: Order Comment: CLEAN CATCH Performed By: #### L 501.0900, L506.1001, L400.0001 #### [facility] [address] [place], [address] RBC 0 SEEN Normal 0-5 [facility] Comment on above: Order Comment: CLEAN CATCH Performed By: #### L 501.0900, L506.1001, L400.0001 #### [facility] [address] [place], [address] WBC 0 SEEN Normal 0-5 [facility] Comment on above: Order Comment: CLEAN CATCH Performed By: #### L 501.0900, L506.1001, L400.0001 #### [facility] [address] [place], [address] Vitamin D,25 Hydroxyon 03-25 Vitamin D 25-OH 16.8 ng/mL Low 30-100 [facility] Comment on above: Order Comment: Order Date: 03/22/25 Order Info: 0786-1 - [facility] Result Comment: Amllory min D Status Deficiency: <20 ng/mL (50nmol/L) Insufficiency: 20-30 ng/mL (50-75 nmol/L) Sufficiency: 30-100 ng/mL (75-250 nmol/L) Toxicity: >100 ng/mL (>250 nmol/L) Performed By: #### L 501.0900, L506.1001, L400.0001 #### [facility] [place], [address] Absolute lymphocyte countOrd ered By: Mikel Pino on 08-11-2023 Lymphocytes Auto (Unsp spec) [#/Vol] 2.05 10*3/uL 0.83-4.51 [facility] Basophil percentageOrdered B y: Mikel Pino on 08-11-2023 Basophil percentage 0 SEEN /hpf 0-5 [facility] Basophils/100 WBC (Bld) 0.6 % 0-1 [facility] Bilirubin [Mass/Vol] 0.40 mg/dL 0.20-1.00 [facility] Comment on above: For patients on eltr ombopag therapy, use of Dimension [place] TBIL is not recommended. Chloride [Moles/Vol] 111 mmol/L 98-107 [facility] Cholesterol [Mass/Vol] 196 mg/dL <200 [facility] Comment on above: <200 mg/dL Desirable 200-240 mg/dL Borderline >240 mg/dL High Risk Eosinophils/100 WBC (Bld) 1.6 % 0-5 [facility] Glucose [Mass/Vol] 123 mg/dL 74-106 [facility] Comment on above: Fasting Glucose resu lt from 100 to 125 mg/dL suggests IMPAIRED HOMEOSTASIS per A.D.A. criteria. Neutrophils (Bld) [#/Vol] 5.0 10*3/uL 2.0-7.7 [facility] Neutrophils/100 WBC (Bld) 60.7 % 47-70 [facility] Potassium [Moles/Vol] 4.0 mmol/L 3.5-5.1 [facility] Protein [Mass/Vol] 7.6 g/dL 6.4-8.2 [facility] Sodium [Moles/Vol] 141 mmol/L 136-145 [facility] Triglyceride [Mass/Vol] 277 mg/dL <199 [facility] Comment on above: The drugs N-Acetylcy steine and Metamizole may falsely depress this assay.Serum Triglycerides Reference Interval Normal <150 mg/dL Borderline high 150 - 199 mg/dL High 200 - 499 mg/dL Very High > or = 500 mg/dL WBC (Bld) [#/Vol] 8.3 10*3/uL 4.4-11.0 [facility] Bilirubin Test strip Ql (U)O rdered By: Mikel Pino on 08-11-2023 Bilirubin Ql (U) Negative Negative [facility] Blood erythrocytes count (nu mber/volume)Ordered By: Mikel Pino on 08-11-2023 RBC (Bld) [#/Vol] 4.88 10*6/uL 4.6-6.2 [facility] Blood hemoglobin measurement (mass/volume)Ordered By: Mikel Pino on 08-11-2023 Hemoglobin (Bld) [Mass/Vol] 13.9 g/dL 13.0-16.5 [facility] Blood lymphocytes/100 leukoc ytesOrdered By: Mikel Pino on 08-11-2023 Lymphocytes/100 WBC (Bld) 24.8 % 19-41 [facility] Blood monocytes/100 leukocyt esOrdered By: Mikel Pino on 08-11-2023 Monocytes/100 WBC (Bld) 12.2 % 0-10 [facility] Blood platelet mean volumeOr dered By: Mikel Pino on 08-11-2023 Platelet mean volume (Bld) [Entitic vol] 10.8 fL 6.2-12.0 [facility] Determination of erythrocyte mean corpuscular volume (MCV)Ordered By: Mikel Pino on 08-11-2023 MCV (RBC) [Entitic vol] 88.7 fL 80-94 [facility] Hematocrit Auto (Bld) [Volum e fraction]Ordered By: Mikel Pino on 08-11-2023 Hematocrit (Bld) [Volume fraction] 43.3 % 40-54 [facility] Ketones Test strip Ql (U)Ord ered By: Mikel Pino on 08-11-2023 Ketones Ql (U) Negative Negative [facility] - Chemistry and C hemistry - challengeOrdered By: Mikel Pino on 08-11-2023 ALP [Catalytic activity/Vol] 104 U/L 45-117 [facility] ALT [Catalytic activity/Vol] 28 U/L 16-61 [facility] CO2 [Moles/Vol] 24.0 mmol/L 21.0-32.0 [facility] Globulin (S) [Mass/Vol] 3.7 g/dL 2.2-4.2 [facility] Urea nitrogen/Creatinine [Mass ratio] 13.3 mg/mg 10-20 [facility] - Hematology and Cell countsOrdered By: Mikel Pino on 08-11-2023 Erythrocyte distribution width (RBC) [Entitic vol] 44.1 fL 35.1-43.9 [facility] Erythrocyte distribution width (RBC) [Ratio] 13.6 % 11.6-14.6 [facility] Immature granulocytes/100 WBC (Bld) 0.100 % 0.0-0.9 [facility] Comment on above: IG% - Immature Granu locytes (promyelocytes, myelocytes and metamyelocytes) > 1% indicates that a LEFT SHIFT is Present. MCH (RBC) [Entitic mass] 28.5 pg 27.0-32.0 [facility] Nucleated RBC/100 WBC (Bld) [Ratio] 0 % 0-5 [facility] MCHC Auto (RBC) [Mass/Vol]Or dered By: Mikel Pino on 08-11-2023 MCHC (RBC) [Mass/Vol] 32.1 g/dL 32-36 [facility] Mucus LM Ql (Urine sed)Order ed By: Mikel Pino on 08-11-2023 Mucus Ql (Urine sed) 0 SEEN /hpf [facility] Nitrite Test strip Ql (U)Ord ered By: Mikel Pino on 08-11-2023 Nitrite Ql (U) Negative Negative [facility] No Panel InformationOrdered By: Mikel Pino on 08-11-2023 Estimated GFR (MDRD) Amer 66 mL/min >60 [facility] Comment on above: GFR Calc Estimated GFR (MDRD) Non-Af Amer 54 mL/min >60 [facility] Comment on above: Non- GFR Calc Percent Free Prostate Specific Ag 0.95 ng/mL N/A [facility] Comment on above: Mara ECLIA methodol ogy. Prostate Specific Ag, Ultra-Sensitv 4.210 ng/mL 0.000-4.000 [facility] Comment on above: Mara ECLIA methodol ogy.According to the [place] [employer], Serum PSAshould decrease and remain at undetectable levels afterradical prostatectomy. The AUA defines biochemicalrecurrence as an initial PSA value 0.200 ng/mL or greaterfollowed by a subsequent confirmatory PSA value 0.200 ng/mLor greater. Values obtained with different assay methods orkits cannot be used interchangeably. Results cannot beinterpreted as absolute evidence of the presence or absenceof malignant disease. Thyroid Stimulating Hormone (TSH) 1.47 uIU/mL 0.358-3.74 [facility] Platelets bldOrdered By: Delgado Pino on 08-11-2023 Platelets (Bld) [#/Vol] 339 10*3/uL 150-450 [facility] Protein Test strip Ql (U)Ord ered By: Mikel Pino on 08-11-2023 Protein Ql (U) Negative Negative [facility] Serum or plasma albumin vera urement (mass/volume)Ordered By: Mikel Pino on 08-11-2023 Albumin [Mass/Vol] 3.9 g/dL 3.2-5.0 [facility] Serum or plasma albumin/glob ulin mass ratioOrdered By: Mikel Pino on 08-11-2023 Albumin/Globulin [Mass ratio] 1.1 {ratio} 0.9-2.4 [facility] Serum or plasma calcium vera urement (mass/volume)Ordered By: Mikel Pino on 08-11-2023 Calcium [Mass/Vol] 8.7 mg/dL 8.5-10.1 [facility] Serum or plasma cholesterol in HDL measurement (mass/volume)Ordered By: Mikel Pino on 08-11-2023 Cholesterol in HDL [Mass/Vol] 33 mg/dL >40 [facility] Comment on above: The drugs N-Acetylcy steine and Metamizole may falsely depress this assay. Reference Range HDL <40 mg/dL Low HDL Cholesterol HDL >or= 60 mg/dL High HDL Cholesterol Serum or plasma cholesterol in VLDL measurement (mass/volume)Ordered By: Mikel Pino on 08-11-2023 Cholesterol in VLDL [Mass/Vol] 55 mg/dL 5-40 [facility] Serum or plasma creatinine m easurement (mass/volume)Ordered By: Mikel Pino on 08-11-2023 Creatinine [Mass/Vol] 1.43 mg/dL 0.70-1.30 [facility] Comment on above: The validity of the calculated GFR & GFRAA in patients over 70 years has not been determined. Clinical correlation is essential. Serum or plasma free prostat e specific antigen/total prostate specific antigen ratioOrdered By: Mikel Pino on 08-11-2023 Free PSA/Total PSA [Mass fraction] 22.6 % . [facility] Comment on above: The table below list s the probability of prostate cancer formen with non-suspicious TRAMAINE results and total PSA between4 and 10 ng/mL, by patient age (Isabelle et al, JERO 1998,279:1542). % Free PSA 50-64 yr 65-75 yr 0.00-10.00% 56% 55% 10.01-15.00% 24% 35% 15.01-20.00% 17% 23% 20.01-25.00% 10% 20% >25.00% 5% 9%Please note: Isabelle et al did not make specific recommendations regarding the use of percent free PSA for any other population of men.Performed at: [facility] [id number] Director: Placido Moore PhD, Phone: [phone] Serum or plasma low density lipoprotein (LDL) cholesterol measurement (mass/volume)Ordered By: Mikel Pino on 08-11-2023 Cholesterol in LDL [Mass/Vol] 108 mg/dL 0-130 [facility] Serum or plasma urea nitroge n measurement (mass/volume)Ordered By: Mikel Pino on 08-11-2023 Urea nitrogen [Mass/Vol] 19 mg/dL 7-18 [facility] Squamous epithelial cells de tection in urine sediment by light microscopyOrdered By: Mikel Pino on 08-11-2023 Epithelial cells.squamous LM Ql (Urine sed) 0 SEEN /hpf 0-5 [facility] Thin prep Papanicolaou smear with manual screeningOrdered By: Mikel Pino on 08-11-2023 Thin prep Papanicolaou smear with manual screening 16 U/L 15-37 [facility] Thin prep Papanicolaou smear with manual screening 6 5-15 [facility] Urine blood detectionOrdered By: Mikel Pino on 08-11-2023 RBC Ql (U) Negative Negative [facility] RBC Ql (U) 0 SEEN /hpf 0-5 [facility] Urine clarityOrdered By: Delgado Pino on 08-11-2023 Clarity (U) Clear Clear [facility] Urine color determinationOrd ered By: Mikel Pino on 08-11-2023 Color (U) Yellow Yellow [facility] Urine glucose detectionOrder ed By: Mikel Pino on 08-11-2023 Glucose Ql (U) Normal mg/dl Normal [facility] Urine leukocyte esterase det ection by dipstickOrdered By: Mikel Pino on 08-11-2023 Leukocyte esterase Test strip Ql (U) Negative Negative [facility] Urine pHOrdered By: Mikel mckeon on 08-11-2023 pH (U) 6.5 [pH] 5.0 - 8.0 [facility] Urine sediment bacteria coun t by microscopy (number/high power field)Ordered By: Mikel Pino on 08-11-2023 Bacteria LM.HPF (Urine sed) [#/Area] 0 /[HPF] None Seen [facility] Urine specific gravity measu rementOrdered By: Mikel Pino on 08-11-2023 Specific gravity (U) [Rel density] 1.015 1.002-1.030 [facility] Urobilinogen Auto test strip Ql (U)Ordered By: Mikel Pino on 08-11-2023 Urobilinogen Ql (U) 1 mg/dl Normal [facility] Whole blood hemoglobin A1c/t otal hemoglobin ratio (mass fraction)Ordered By: Mikel Pino on 08-11-2023 HbA1c (Bld) [Mass fraction] 5.6 % 3.8-5.6 [facility] Comment on above: Normal < 5.7 % Predi abetic 5.7 - 6.4 % Diabetic >or= 6.5 % Please note range changes. Basophil percentageOrdered B y: Olivia Kenney on 05-13-2023 Bilirubin [Mass/Vol] 0.50 mg/dL 0.20-1.00 [facility] Comment on above: For patients on eltr ombopag therapy, use of Dimension [place] TBIL is not recommended. Chloride [Moles/Vol] 108 mmol/L 98-107 [facility] Glucose [Mass/Vol] 84 mg/dL 74-106 [facility] Potassium [Moles/Vol] 4.4 mmol/L 3.5-5.1 [facility] Protein [Mass/Vol] 6.9 g/dL 6.4-8.2 [facility] Sodium [Moles/Vol] 141 mmol/L 136-145 [facility] - Chemistry and C hemistry - challengeOrdered By: Olivia Kenney on 05-13-2023 ALP [Catalytic activity/Vol] 103 U/L 45-117 [facility] ALT [Catalytic activity/Vol] 32 U/L 16-61 [facility] CO2 [Moles/Vol] 25.0 mmol/L 21.0-32.0 [facility] Globulin (S) [Mass/Vol] 3.0 g/dL 2.2-4.2 [facility] Urea nitrogen/Creatinine [Mass ratio] 11.4 mg/mg 10-20 [facility] No Panel InformationOrdered By: Olivia Kenney on 05-13-2023 Estimated GFR (MDRD) Amer 72 mL/min >60 [facility] Comment on above: GFR Calc Estimated GFR (MDRD) Non-Af Amer 60 mL/min >60 [facility] Comment on above: Non- GFR Calc Serum or plasma albumin vera urement (mass/volume)Ordered By: Olivia Kenney on 05-13-2023 Albumin [Mass/Vol] 3.9 g/dL 3.2-5.0 [facility] Serum or plasma albumin/glob ulin mass ratioOrdered By: Olivia Kenney on 05-13-2023 Albumin/Globulin [Mass ratio] 1.3 {ratio} 0.9-2.4 [facility] Serum or plasma calcium vera urement (mass/volume)Ordered By: Olivia Kenney on 05-13-2023 Calcium [Mass/Vol] 8.9 mg/dL 8.5-10.1 [facility] Serum or plasma creatinine m easurement (mass/volume)Ordered By: Olivia Kenney on 05-13-2023 Creatinine [Mass/Vol] 1.32 mg/dL 0.70-1.30 [facility] Comment on above: The validity of the calculated GFR & GFRAA in patients over 70 years has not been determined. Clinical correlation is essential. Serum or plasma urea nitroge n measurement (mass/volume)Ordered By: Olivia Kenney on 05-13-2023 Urea nitrogen [Mass/Vol] 15 mg/dL 7-18 [facility] Thin prep Papanicolaou smear with manual screeningOrdered By: Olivia Kenney on 05-13-2023 Thin prep Papanicolaou smear with manual screening 19 U/L 15-37 [facility] Thin prep Papanicolaou smear with manual screening 8 5-15 [facility] Absolute lymphocyte counton 12-22-2021 Lymphocytes Auto (Unsp spec) [#/Vol] 1.96 10*3/uL 0.83-4.51 [facility] Work Phone: Basophil percentageon 2021 Basophil percentage 0-5 SEEN /hpf [facility] Work Phone: Basophils/100 WBC (Bld) 0.5 % 0-1 [facility] Work Phone: Bilirubin [Mass/Vol] 0.50 mg/dL 0.20-1.00 [facility] Work Phone: Comment on above: For patients on eltr ombopag therapy, use of Dimension [place] TBIL is not recommended. Chloride [Moles/Vol] 109 mmol/L 98-107 [facility] Work Phone: Cholesterol [Mass/Vol] 186 mg/dL <200 [facility] Work Phone: Comment on above: <200 mg/dL Desirable 200-240 mg/dL Borderline >240 mg/dL High Risk Eosinophils/100 WBC (Bld) 1.5 % 0-5 [facility] Work Phone: Glucose [Mass/Vol] 100 mg/dL 74-106 [facility] Work Phone: Comment on above: Fasting Glucose resu lt from 100 to 125 mg/dL suggests IMPAIRED HOMEOSTASIS per A.D.A. criteria. Neutrophils (Bld) [#/Vol] 4.5 10*3/uL 2.0-7.7 [facility] Work Phone: Neutrophils/100 WBC (Bld) 61.1 % 47-70 [facility] Work Phone: Potassium [Moles/Vol] 4.0 mmol/L 3.5-5.1 [facility] Work Phone: Protein [Mass/Vol] 7.3 g/dL 6.4-8.2 [facility] Work Phone: Sodium [Moles/Vol] 139 mmol/L 136-145 [facility] Work Phone: Triglyceride [Mass/Vol] 138 mg/dL [facility] Work Phone: Comment on above: The drugs N-Acetylcy steine and Metamizole may falsely depress this assay.Serum Triglycerides Reference Interval Normal <150 mg/dL Borderline high 150 - 199 mg/dL High 200 - 499 mg/dL Very High > or = 500 mg/dL WBC (Bld) [#/Vol] 7.3 10*3/uL 4.4-11.0 [facility] Work Phone: Bilirubin Test strip Ql (U)o n 12-22-2021 Bilirubin Ql (U) Negative Negative [facility] Work Phone: Blood erythrocytes count (nu mber/volume)on 12-22-2021 RBC (Bld) [#/Vol] 4.53 10*6/uL 4[facility] Work Phone: Blood hemoglobin measurement (mass/volume)on 12-22-2021 Hemoglobin (Bld) [Mass/Vol] 13.0 g/dL 13.0-16.5 [facility] Work Phone: Blood lymphocytes/100 leukoc yteson 12-22-2021 Lymphocytes/100 WBC (Bld) 26.8 % 19-41 [facility] Work Phone: Blood monocytes/100 leukocyt eson 12-22-2021 Monocytes/100 WBC (Bld) 9.8 % 0-10 [facility] Work Phone: Blood platelet mean volumeon 12-22-2021 Platelet mean volume (Bld) [Entitic vol] 10.1 fL 6.2-12.0 [facility] Work Phone: Determination of erythrocyte mean corpuscular volume (MCV)on 12-22-2021 MCV (RBC) [Entitic vol] 86.1 fL 80-94 [facility] Work Phone: Hematocrit Auto (Bld) [Volum e fraction]on 12-22-2021 Hematocrit (Bld) [Volume fraction] 39.0 % 40-54 [facility] Work Phone: Ketones Test strip Ql (U)on 12-22-2021 Ketones Ql (U) Negative Negative [facility] Work Phone: Laboratory - Chemistry and C hemistry - challengeon 12-22-2021 ALP [Catalytic activity/Vol] 95 U/L 45-117 [facility] Work Phone: ALT [Catalytic activity/Vol] 32 U/L 16-61 [facility] Work Phone: CO2 [Moles/Vol] 25.0 mmol/L 21.0-32.0 [facility] Work Phone: Globulin (S) [Mass/Vol] 3.6 g/dL 2.2-4.2 [facility] Work Phone: Urea nitrogen/Creatinine [Mass ratio] 14.3 mg/mg 10-20 [facility] Work Phone: Laboratory - Hematology and Cell countson 12-22-2021 Erythrocyte distribution width (RBC) [Entitic vol] 41.7 fL 35.1-43.9 [facility] Work Phone: Erythrocyte distribution width (RBC) [Ratio] 13.2 % 11.6-14.6 [facility] Work Phone: Immature granulocytes/100 WBC (Bld) 0.300 % 0.0-0.9 [facility] Work Phone: Comment on above: IG% - Immature Granu locytes (promyelocytes, myelocytes and metamyelocytes) > 1% indicates that a LEFT SHIFT is Present. MCH (RBC) [Entitic mass] 28.7 pg 27.0-32.0 [facility] Work Phone: Nucleated RBC/100 WBC (Bld) [Ratio] 0 % 0-5 [facility] Work Phone: MCHC Auto (RBC) [Mass/Vol]on 12-22-2021 MCHC (RBC) [Mass/Vol] 33.3 g/dL 32-36 [facility] Work Phone: Mucus LM Ql (Urine sed)on Mucus Ql (Urine sed) 0 SEEN /hpf [facility] Work Phone: Nitrite Test strip Ql (U)on 12-22-2021 Nitrite Ql (U) Negative Negative [facility] Work Phone: No Panel Informationon 12-22 Estimated GFR (MDRD) Amer 82 mL/min >60 [facility] Work Phone: Comment on above: GFR Calc Estimated GFR (MDRD) Non-Af Amer 68 mL/min >60 [facility] Work Phone: Comment on above: Non- GFR Calc Platelets bldon 12-22-2021 Platelets (Bld) [#/Vol] 357 10*3/uL 150-450 [facility] Work Phone: Protein Test strip Ql (U)on 12-22-2021 Protein Ql (U) Negative Negative [facility] Work Phone: Serum or plasma albumin vera urement (mass/volume)on 12-22-2021 Albumin [Mass/Vol] 3.7 g/dL 3.2-5.0 [facility] Work Phone: Serum or plasma albumin/glob ulin mass ratioon 12-22-2021 Albumin/Globulin [Mass ratio] 1.0 {ratio} 0.9-2.4 [facility] Work Phone: Serum or plasma calcium vera urement (mass/volume)on 12-22-2021 Calcium [Mass/Vol] 8.4 mg/dL 8.5-10.1 [facility] Work Phone: Serum or plasma cholesterol in HDL measurement (mass/volume)on 12-22-2021 Cholesterol in HDL [Mass/Vol] 34 mg/dL [facility] Work Phone: Comment on above: The drugs N-Acetylcy steine and Metamizole may falsely depress this assay. Reference Range HDL <40 mg/dL Low HDL Cholesterol HDL >or= 60 mg/dL High HDL Cholesterol Serum or plasma cholesterol in VLDL measurement (mass/volume)on 12-22-2021 Cholesterol in VLDL [Mass/Vol] 28 mg/dL 5-40 [facility] Work Phone: Serum or plasma creatinine m easurement (mass/volume)on 12-22-2021 Creatinine [Mass/Vol] 1.19 mg/dL 0.70-1.30 [facility] Work Phone: Comment on above: The validity of the calculated GFR & GFRAA in patients over 70 years has not been determined. Clinical correlation is essential. Serum or plasma low density lipoprotein (LDL) cholesterol measurement (mass/volume)on 12-22-2021 Cholesterol in LDL [Mass/Vol] 124 mg/dL 0-130 [facility] Work Phone: Serum or plasma urea nitroge n measurement (mass/volume)on 12-22-2021 Urea nitrogen [Mass/Vol] 17 mg/dL 7-18 [facility] Work Phone: Squamous epithelial cells de tection in urine sediment by light microscopyon 12-22-2021 Epithelial cells.squamous LM Ql (Urine sed) 0 SEEN /hpf [facility] Work Phone: Thin prep Papanicolaou smear with manual screeningon 12-22-2021 Thin prep Papanicolaou smear with manual screening 14 U/L 15-37 [facility] Work Phone: Thin prep Papanicolaou smear with manual screening 5 5-15 [facility] Work Phone: Urine blood detectionon - RBC Ql (U) Negative Negative [facility] Work Phone: RBC Ql (U) 0 SEEN /hpf [facility] Work Phone: Urine clarityon 12-22-2021 Clarity (U) Clear Clear [facility] Work Phone: Urine color determinationon 12-22-2021 Color (U) Yellow Yellow [facility] Work Phone: Urine glucose detectionon Glucose Ql (U) Normal mg/dl Normal [facility] Work Phone: Urine leukocyte esterase det ection by dipstickon 12-22-2021 Leukocyte esterase Test strip Ql (U) Negative Negative [facility] Work Phone: Urine pHon 12-22-2021 pH (U) 5.0 [pH] [facility] Work Phone: Urine sediment bacteria coun t by microscopy (number/high power field)on 12-22-2021 Bacteria LM.HPF (Urine sed) [#/Area] 0 /[HPF] None Seen [facility] Work Phone: Urine specific gravity measu rementon 12-22-2021 Specific gravity (U) [Rel density] 1.020 [facility] Work Phone: Urobilinogen Auto test strip Ql (U)on 12-22-2021 Urobilinogen Ql (U) Normal mg/dl Normal [facility] Work Phone: Whole blood hemoglobin A1c/t otal hemoglobin ratio (mass fraction)on 12-22-2021 HbA1c (Bld) [Mass fraction] 5.7 % 3.8-5.6 [facility] Work Phone: Comment on above: Normal < 5.7 % Predi abetic 5.7 - 6.4 % Diabetic >or= 6.5 % Please note range changes. Laboratory - Microbiology an d Antimicrobial susceptibilityon 12-07-2021 SARS-CoV-2 (COVID-19) RNA CLAUDINE+probe Ql (Unsp spec) Detected Not Detect [facility] Work Phone: Comment on above: Normal Reference Ran ge: Not DetectedMethod:(RT-PCR) real-time reverse transcriptase PCRLuminex ResponseTek Instrument*The Food and Drug Administration (FDA) has issued an Emergency Use Authorization (EAU) for the ResponseTek SARS-CoV-2 Assay for the rapid detection of the virus that causes COVID-19. This test has been validated, but the FDAs independent review of this validation is pending.*Negative results do not preclude infection and should not be used as the sole basis for treatment or patient management. Optimum specimen types and timing for peak viral levels during infections caused by SARS-CoV-2 have not been determined. Collection of multiple specimens from the same patient may be necessary to detect the virus. The possibility of a false negative result should be considered if the patient has clinical presentation or has had recent exposure. Vital Signs Date Time Vital Sign Value Performing Clinician Sharda casey 12-10-2021 12:48-0500 Body temperature 98.4 [degF] Dr. Mikel Pino Work Phone: [facility] Work Phone: 12-10-2021 12:48-0500 Diastolic blood pressure 80 mm[Hg] Dr. Mikel Pino Work Phone: [facility] Work Phone: 12-10-2021 12:48-0500 Heart rate 94 /min Dr. Mikel Pino Work Phone: [facility] Work Phone: 12-10-2021 12:48-0500 Respiratory rate 16 /min Dr. Mikel Pino Work Phone: [facility] Work Phone: 12-10-2021 12:48-0500 SaO2% (BldA) [Mass fraction] 99 % Dr. Mikel Pino Work Phone: [facility] Work Phone: 12-10-2021 12:48-0500 Systolic blood pressure 116 mm[Hg] Dr. Mikel Pino Work Phone: [facility] Work Phone: 12-10-2021 11:21-0500 Body height 177.[address] Mikel Pino Work Phone: [facility] Work Phone: 12-10-2021 11:21-0500 Body mass index (BMI) [Ratio] 29.4 kg/m2 Dr. Mikel Pino Work Phone: [facility] Work Phone: 12-10-2021 11:21-0500 Body weight 92.[address] Mikel Pino Work Phone: [facility] Work Phone: Encounters Encounter Date Encounter Type Care Provider Facility Start: 09-24-2025 End: 09-24-2025 [facility] Start: 03-25-2025 End: 03-25-2025 ambulatory [facility] Ninfa Pino Facility:[facility] Start: 11-29-2023 Non-patient / Non-visit Dr. Cady Pino Work Phone: [facility] Start: 11-29-2023 End: 11-29-[address] Mikel Pino Work Phone: [facility] Work Phone: Start: 11-29-2023 End: 11-29-[address] Mikel Pino Work Phone: [facility] Work Phone: Start: 08-11-2023 End: 08-11-2023 ambulatory [facility] Work Phone: Start: 08-11-2023 End: 08-11-2023 Patient encounter procedure [facility] Work Phone: Start: 05-13-2023 End: 05-13-2023 ambulatory [facility] Work Phone: Start: 05-13-2023 End: 05-13-2023 Patient encounter procedure [facility] Start: 03-04-2022 Non-patient / Non-visit Dr. Cady Pino Work Phone: [facility] Start: 03-04-2022 End: 03-04-[address] Mikel Pino Work Phone: [facility] Start: 12-22-2021 End: 12-22-[address] Mikel Pino Work Phone: [facility] Start: 12-10-2021 End: 12-10-[address] Mikel Pino Work Phone: [facility] 3 Outp Start: 12-07-2021 End: 12-07-[address] Mikel Pino Work Phone: [facility], Plan of Treatment Date Care Activity Detail Author Patient referral [facility] Work Phone: Payers Date Payer Category Payer Unknown [id number] 2025 Self-pay 2025 Unknown [id number] Private Health Insurance [facility] [id number] Private Health Insurance [facility] [id number] Self-pay [id number] Unknown [id number] Unknown [id number] Social History Date Type Detail Facility Start: 12-09-2021 End: 12-09-2021 Tobacco smoking status NHIS Unknown if ever smoked [facility] Start: 10-13-2021 None [facility] Start: 10-13-2021 Cigarettes [facility] Start: 1965 Sex Assigned At Male [facility] Mental Status Date Assessment Result Facility 12-10-2021 Cognitive function Voice/Name;To uch/Shaking;L ight Pain;Deep Pain [facility] Work Phone: Evaluation note Note Date & Type Note Facility Evaluation note No assessment information availa ble [facility] Work Phone: Chief Complaint and Reason for Visit Chief Complaint COVID 19 COVID POS THORACIC AA Chief Complaint E ORDER Chief Complaint E ORDER I71.2 Family History No Family History Records Found Relationship Condition Age at Onset Recorded Date/T puneet Unknown Family History?Heart Disease Unknown December 12, 2017 8:31pm Family History?Heart Disease Unknown December 12, 2017 8:31pm Relationship Condition Age at Onset Recorded Date/T puneet Unknown Family History?Heart Disease Unknown December 12, 2017 7:31pm Family History?Heart Disease Unknown December 12, 2017 7:31pm Advance Directives No Advanced Directives Records Found Advance Directive Response Recorded Date/ Time Living Will No December 12 8:39pm Power of [employer] No December 12, 2017 8:39pm Advance Directive Response Recorded Date/ Time Living Will No December 12 7:39pm Power of [employer] No December 12, 2017 7:39pm Summary Purpose Additional Source Comments Goals (unrecognized section and content) Goals may be documented in a n alternate sectionGoals may be documented in an alternate sectionGoals may be documented in an alternate sectionGoals may be documented in an alternate section Care Teams (unrecognized sec tion and content) Team Status: Active Member Role Status Dates Dr. Mikel Pino MD Family Provider Active Dr. Mikel Pino MD Primary Care Provider Active Team Status: Inactive Member Role Status Dates Dr. Mikel Pino MD Primary Care Provider Active JUSTIN Pearce Attending Provider Active Team Status: Inactive Member Role Status Dates Dr. Mikel Pino MD Primary Care Provider, Attend ing Provider Active Team Status: Active Member Role Status Dates Dr. Mikel Pino MD Primary Care Provider Active Dr. Marky Medina MD Attending Provider Active Team Status: Inactive Member Role Status Dates Dr. Mikel Pino MD Primary Care Pr ovider, Attending Provider, Referring Provider Active (unrecognized sect ion and content) No Status Records Found INFORMATION SOURCE (unrecogn ized section and content) DATE CREATED AUTHOR 10/03/2025 [facility] FOR RECORDS PERTAINING TO PATIENTS WHO ARE OR HAVE BEEN ENROLLED IN A CHEMICAL DEPENDENCY/SUBSTANCEABUSE PROGRAM, SOME INFORMATION MAY BE OMITTED. This clinical summary was aggregated from multiple sources. Caution should be exercised in using it in the provision of clinical care. This summary normalizes information from multiple sources, and as a consequence, information in this document may materially change the coding, format and clinical context of patient data. In addition, data may be omitted in some cases. CLINICAL DECISIONS SHOULD BE BASED ON THE PRIMARY CLINICAL RECORDS. [facility] [employer] [facility]. provides no warranty or guarantee of the accuracy or completeness of information in this document.
== END | disposition home or self-care (01) ==
PROVIDERS: PCP Family Medicine; Referring Provider Family Medicine; Visit Provider Family Medicine
DX: I71.20 Thoracic aortic aneurysm, without rupture, unspecified (principal)
CPT/HCPCS: 93306